=== PATIENT | female | born 1955 | race Caucasian/White ===

== ENCOUNTER 2019-11-28 15:38 | Emergency (ER) | payer MEDICARE, OTHER, SELFPAY ==
[2019-11-28 15:57] VITALS: BP 137/50; PULSE 84; RESP 20; TEMP 36.8; O2SAT 97
--- NOTE | 2019-11-28 16:13 | ED.URI ---
HPI - URI/Sore Throat General Stated Complaint: sinus infection Source: patient and family History of Present Illness HPI Narrative: Patient presents with a 13-day history of sinus pressure and tenderness. Patient denies any fever, no shortness of breath no chest pain. MD elicited complaint: cough, nasal congestion and sinus pain Related Data Home Medications Medication Instructions Recorded Confirmed albuterol sulfate [ProAir HFA] INHALATION 08/16/19 amlodipine 08/16/19 azelastine INTRANASAL 08/16/19 clonazepam 08/16/19 clopidogrel 08/16/19 duloxetine mg PO 08/16/19 duloxetine mg PO 08/16/19 escitalopram oxalate mg 08/16/19 levothyroxine 08/16/19 linaclotide [Linzess] mcg 08/16/19 linaclotide [Linzess] mcg 08/16/19 metformin mg 08/16/19 peg-electrolyte soln [GaviLyte-N] 08/16/19 rifaximin [Xifaxan] mg 08/16/19 rosuvastatin mg 08/16/19 Allergies Allergy/AdvReac Type Severity Reaction Status Date / Time celecoxib Allergy Mild Rash Verified 11/28/19 16:26 codeine Allergy Mild hives Verified 11/28/19 16:26 hydrocodone Allergy Mild hives Verified 11/28/19 16:26 meperidine Allergy Mild swelling Verified 11/28/19 16:26 of throat metronidazole Allergy Mild Nausea and Verified 11/28/19 16:26 Vomiting Penicillins Allergy Mild Hives / Verified 11/28/19 16:26 Red Face pentazocine Allergy Mild Rash Verified 11/28/19 16:26 Quinolones Allergy Mild hives Verified 11/28/19 16:26 Sulfa (Sulfonamide Allergy Mild Hives / Verified 11/28/19 16:26 Antibiotics) Red Face acetaminophen Allergy Unknown Itching Verified 11/28/19 16:26 propoxyphene Allergy Unknown Itching Unverified 08/16/19 14:07 Review of Systems Review of Systems: Narrative: CONSTITUTIONAL: Denies chills, or sweats. Reports fever and generalized body aches EYES: Denies visual changes, redness, or discharge. ENT: Denies otalgia. Reports nasal congestion runny nose and sore throat mild maxillary tenderness and pressure CARDIOVASCULAR: Denies chest pain, palpitations, or edema. RESPIRATORY: Denies dyspnea. Reports occasional cough GASTROINTESTINAL: Denies abdominal pain, nausea, vomiting, or diarrhea. GENITOURINARY: Denies dysuria or hematuria. SKIN: Denies rash or itching. MUSCULOSKELETAL: Denies back pain, joint pain, or myalgia. Reports generalized body aches NEUROLOGIC: Denies headache, numbness, or weakness. PSYCHIATRIC: Denies anxiety or depression. COUNT INCLUDES THE [facility] Past Medical History Medical History Anxiety Asthma CVA (cerebral vascular accident) Depression Diabetes Fibroids Fibromyalgia GERD (gastroesophageal reflux disease) Hypothyroidism Pelvic floor dysfunction Peripheral neuropathy Postmenopausal Restless leg syndrome Sleep apnea TIA (transient ischemic attack) Surgical History Surgical History H/O: hysterectomy History of cholecystectomy Comments At time of signature, agree with nursing past medical, surgical, social and family history. There is no relevant family history pertinent to the presenting complaint Exam Narrative: Exam Narrative: The patient is a well-developed, well-nourished in no acute distress. SKIN: Skin is warm and dry without erythema, swelling or exudate. There is good turgor. No tenting. HEAD: Atraumatic. Normocephalic. No temporal or scalp tenderness. EYES: Moist and bright. Sclera and conjunctivae normal. No discharge. PERRLA. Extraocular motions intact. Gross visual acuity intact. EARS: Pinna is normal shape and contour. Clear external auditory canals. TM pearly cat with good cone of light, no erythema or suppuration. Bilateral cerumen noted no gross hearing deficit. NOSE: pink, moist mucosa with good air movement. Clear rhinorrhea without nasal flaring. Septum midline. Mouth: moist mucous membranes. Mild maxillary pressure and tenderness mild postnasal drainage THROAT; mild erythe
== END 2019-11-28 16:30 | disposition home or self-care (01) ==
PROVIDERS: Emergency Provider Nurse Practitioner Family
DX: J01.00 Acute maxillary sinusitis, unspecified (principal); F41.9 Anxiety disorder, unspecified; J45.909 Unspecified asthma, uncomplicated; M79.7 Fibromyalgia; K21.9 Gastro-esophageal reflux disease without esophagitis; E11.42 Type 2 diabetes mellitus with diabetic polyneuropathy; G25.81 Restless legs syndrome; Z86.73 Personal history of transient ischemic attack (TIA), and cerebral infarction without residual deficits
CPT/HCPCS: 99213; G0463

== ENCOUNTER → 2021-12-29 07:55 | Outpatient (CLI) | payer MEDICARE, OTHER, SELFPAY ==
--- NOTE | ~2021-12-29 | US_ITS ---
US breast RT complete 12/29/2021 08:54 Indication: Probable right breast lump Procedure: High-resolution ultrasound of the right breast Comparison: Outside mammogram dated 09/15/2021 and 05/08/2020 from [place], [place] Findings: Adjacent to the areola there is a complex partially cystic and hyperechoic mass with mixed posterior attenuation measuring 2 x 1.4 cm. There is internal vascularity. No corresponding abnormali ty is seen on recent mammography. Impression: 1: Complex 2 cm periareolar right breast mass which is partially cystic. No corresponding abnormality on recent mammography. Recommendation: Digital diagnostic right mammogram is recommended. BI-RADS CATEGORY 0 - INCOMPLETE STUDY, NEED ADDITIONAL IMAGING EVALUATION. Reviewed, dictated and finalized at location A. Impression: 1: Complex 2 cm periareolar right breast mass which is partially cystic. No cor responding abnormality on recent mammography. Recommendation: Digital diagnostic right mammogram is recommended. BI-RADS CATEGORY 0 - INCOMPLETE STUDY, NEED ADDITIONAL IMAGING EVALUATION.
== END ==
PROVIDERS: PCP Internal Medicine Infectious Disease; Visit Provider Obstetrics & Gynecology
DX: N64.89 Other specified disorders of breast (principal); R92.8 Other abnormal and inconclusive findings on diagnostic imaging of breast
CPT/HCPCS: 76641

== ENCOUNTER → 2022-01-02 11:18 | Outpatient (CLI) | payer MEDICARE, OTHER, SELFPAY ==
--- NOTE | ~2022-01-02 | DEXA_ITS ---
Bone Density Report Name: SANGEETHA BARBA Age: 66 Sex: Female Ethnicity: White Date of : 1955 Indication: postmenopausal; screening for osteoporosis; height loss; inflammatory bowel disease; asthma or emphysema; hysterectomy; Referring Provider: Michael, Ozzie Kirby Study: Bone densitometry was performed. Exam Date: January 02, 2022 Accession number: [id number] Bone Density: Region BMD T-score Z-score Classification AP Spine (L1, L4) 0.917 -1.1 0.9 Osteopenia Femoral Neck (Left) 0.862 0.1 1.8 Normal Total Hip (Left) 0.944 0.0 1.4 Normal Femoral Neck (Right) 0.793 -0.5 1.2 Normal Total Hip (Right) 0.879 -0.5 0.9 Normal Total Hip Mean 0.912 -0.3 1.2 Normal World Health Organization criteria for BMD impression classify patients as: Normal (T-score at or above -1.0), Osteopenia (T-score between -1.0 and -2.5), or Osteoporosis (T-score at or below -2.5). 10-year Fracture Risk(1): Major Osteoporotic Fracture 7.5% Hip Fracture 0.5% Reported Risk Factors: [place] (), Neck BMD=0.793, BMI=31.3 (1) FRAX(R) Version 3.08. Fracture probability calculated for an untreated patient. Fracture probability may be lower if the patient has received treatment. Previous Exams: Region Exam Age BMD T-score BMD Change BMD Change Date g/cm2 vs Baseline vs Previous AP Spine(L1, L4) 01/02/2022 66 0.917 -1.1 -0.101* -0.088* 12/13/2018 63 1.004 -0.3 -0.013 -0.013 07/10/2009 54 1.018 -0.2 Total Hip(Left) 01/02/2022 66 0.944 0.0 -0.073* -0.032* 12/13/2018 63 0.976 0.3 -0.041* -0.041* 07/10/2009 54 1.017 0.6 Total Hip(Right) 01/02/2022 66 0.879 -0.5 -0.116* -0.059* 12/13/2018 63 0.938 0.0 -0.057* -0.057* 07/10/2009 54 0.995 0.4 *Denotes significance at 95% confidence level, LSC for AP Spine = 0.022 g/cm2, LSC for Total Hip = 0.027 g/cm2 Clinical Information Provided by Patient: Has used the following medications: Vitamin D Has the following medical conditions: Asthma or Emphysema, Inflammatory bowel diseases, Hysterectomy Patient maximum height was 64 Menopause Age: 36 No regular weight bearing exercise Does not regularly consume dairy products Drinks caffeinated beverages Onset of menses at age 9 Number of children 0 Missed period for more than 6 months in a row Impression: The patient has low bone
== END ==
PROVIDERS: PCP Internal Medicine Infectious Disease; Visit Provider Internal Medicine Infectious Disease
DX: Z78.0 Asymptomatic menopausal state (principal); M85.88 Other specified disorders of bone density and structure, other site
CPT/HCPCS: 77080

== ENCOUNTER 2025-04-23 13:04 | Outpatient (CLI) | payer MEDICARE, SELFPAY ==
--- NOTE | ~2025-04-23 | DEXA_ITS ---
Bone Density Report Name: SANGEETHA BARBA Age: 69 Sex: Female Ethnicity: White Date of : 1955 Indication: hyperparathyroidism; parental hip fracture; height loss; inflammatory bowel disease; cancer; hysterectomy; Referring Provider: VICKY, LYNN Kirby Study: Bone densitometry was performed. Exam Date: April 23, 2025 Accession number: [id number] Bone Density: Region BMD T-score Z-score Classification AP Spine(L1-L4) 1.031 -0.1 2.1 Normal Femoral Neck (Left) 0.790 -0.5 1.4 Normal Total Hip (Left) 0.948 0.0 1.7 Normal Femoral Neck (Right) 0.757 -0.8 1.1 Normal Total Hip (Right) 0.937 0.0 1.6 Normal Total Hip Mean 0.942 0.0 1.7 Normal World Health Organization criteria for BMD impression classify patients as: Normal (T-score at or above -1.0), Osteopenia (T-score between -1.0 and -2.5), or Osteoporosis (T-score at or below -2.5). 10-year Fracture Risk: FRAX not reported because: All T-scores for Spine Total, Hip Total, Femoral Neck at or above -1.0 Previous Exams: Region Exam Age BMD T-score BMD Change BMD Change Date g/cm2 vs Baseline vs Previous Total Hip(Left) 04/23/2025 69 0.948 0.0 0.004 (0.4%)# 0.004 (0.4%)# 01/02/2022 66 0.944 0.0 Total Hip(Right) 04/23/2025 69 0.937 0.0 0.058 (6.6%)# 0.058 (6.6%)# 01/02/2022 66 0.879 -0.5 *Denotes significance at 95% confidence level, LSC for Total Hip = 0.027 g/cm2 # Denotes dissimilar scan types or analysis methods Clinical Information Provided by Patient: Parent has had a hip fracture Has used the following medications: Vitamin D, Calcium Has the following medical conditions: Cancer, Inflammatory bowel diseases, Hyperparathyroidism, Hysterectomy Patient maximum height was 64 Menopause Age: 36 No regular weight bearing exercise Onset of menses at age 9 Number of children 0 Impression: The patient has normal bone mass. The patient has risk factors, including: parental hip fracture. No significant bone loss was observed. Discussion: BONE DENSITY IS ABOVE THE MINIMUM DESIRABLE LEVEL AT ALL SKELETAL SITES TESTED. This patient?s bone mineral density is above the minimum desirable level (T-score -1.0 or better) at all sites measured. The patient should follow a healthful lifestyle (good nutrition with adequate calcium and vitamin D, and appropriate weight-bearing exercise). Follow-Up: Consider repeating this study in 5 years or sooner if there is some new clinical indication. Reported by: JUANITA on 04/23/2025 1:52:00 PM. Reviewed, dictated and finalized at location A.
--- OUTSIDE RECORDS SUMMARY | 2025-04-23 13:08 | XMS_ITS | Encounter Summary ---
Author Organization [facility] Address [address] [place] [address] Phone Care Team Providers Care Meter And Service Line Inspector Name Role Phone Ozzie Rodriguez MD Primary Care Provider Stefan Marroquin MD Unavailable Mateus Tran MD Unavailable Bruce Garcia MD Unavailable Jimenez Shaw MD Unavailable Иван Singh MD Unavailable Myriam Abdullahi NP Unavailable [phone] Dakota Marroquin MD Unavailable Daniel Rubin MD Unavailable Loni RODRIGUES MD, Carlos M. Unavailable Jay Meadows MD Unavailable Larry Block DPM Unavailable Yaw Menchaca MD Unavailable + Ata Flores MD Unavailable [phone] Rae Pérez OD Unavailable Logan Mitchell MD Unavailable Frank Rodriguez BALANCE CLERK Unavailable Rebecca Watkins MD Unavailable [phone] Ceci Chanel [facility] Unavailable [phone] Madelyn Church MD Unavailable [phone] Josi Zamora OD Unavailable [phone] Madelyn Church MD Unavailable [phone] Encounter Details Date Type Department Care Team (Late st Contact Info) Description 06/15/2019 Orders Only [facility] Scanning, Provider Social History Tobacco Use Types Packs/Day Years Used Date Smoking Tobacco: Never Smokeless Tobacco: Never Alcohol Use Standard Drinks/Week Comments Yes 0 (1 standard drink = 0.6 oz pur e alcohol) Social use PHQ-2 Answer Date Recorded PHQ-2 Score 2 05/17/2019 Comments Unknown Sex and Gender Information Value Date Recorded Sex Assigned at Not on file Legal Sex Female 8:34 AM [employer] Gender Identity Female 12/01/2021 9:28 PM [employer]IST Sexual Orientation Straight 10/31/2020 6: 30 PM [employer]IST documented as of this encounter Plan of Treatment Not on file documented as of this encounter Procedures Procedure Name Priority Date/Time Associated Diagnosis Comments SCAN - RADIOLOGY/IMAGING 06/15/2019 documented in this encounter Results * SCAN - RADIOLOGY/IMAGING (06/15/2019) Anatomical Region Laterality Modality Other us Provider Scanning Final Result documented in this encounter Visit Diagnoses Not on filedocumented in this encounter Additional Health Concerns Infection Onset Date Last Indicated Resolved Time C. difficile suspected 12/01/2024 12/01/202412/02 3:05 AM [employer] SPECIALIST documented as of this encounter Care Teams Meter And Service Line Inspector Relationship Specialty Start Date End Date Ozzie Rodriguez MD [address] [place] [address] PCP - General Infectious Diseases 05/02/18 tSefan Marroquin MD [address] [place] [address] Consulting Physician Psychiatry 09/05/18 10/06/22 Mateus Tran MD [address] [facility] [address] [place] [address] Consulting Physician Neurology 10/26/18 Bruce Garcia MD [address] [address] Consulting Physician Gastroenterology 12/05/18 Jimenez Shaw MD [address] [place] [address] Consulting Physician Ophthalmology 12/06/18 Иван Singh MD [address] [place] [address] Consulting Physician Urology 03/07/19 Myriam Abdullahi NP [address] [place] [address] Nurse Practitioner Dermatology 04/08/19 Dakota Marroquin MD [address] [place] [address] Consulting Physician Gastroenterology 05/21/19 Daniel Rubin MD [address] [facility] [address] [facility] [address], [address] [place], [place] [id number] Consulting Physician Cardiology 09/11/19 [place] [address] [facility] [address] [place] [address] Consulting Physician Neurology 06/20/20 Jay Meadows MD [address] [facility] [address] [place] [address] Consulting Physician Orthopedic Surgery 07/26/20 Larry Block DPM [address] [facility] [address] [place] [address] Consulting Physician Orthopedic Surgery 12/02/20 [place] [address] [facility] [address] [place] [address] Consulting Physician Orthopedic Surgery 12/19/20 Ata Flores MD [address] [place] [address] Referring Physician Endocrinology Diabetes & Metabolism 08/25/21 Rae Pérez OD [address] [place] [address] Consulting Physician Optometry 08/18/21 Logan Mitchell MD [address] [facility] [place] [address] Consulting Physician Allergy and Immunology 05/20/22 Frank Rodriguez, MARIBEL [address] [place] [address] Nurse Practitioner Psychiatry 09/17/22 Rebecca Watkins MD [id number] [place] [address] Consulting Physician Colon and Rectal Surgery 01/20/23 Ceci Chanel, [facility] [address] [place] [address] Pharmacist Pharmacy 08/07/24 08/07/24 Madelyn Church MD [address] [facility] [address] [place] [address] Referring Physician Nephrology 05/02/24 Josi Zamora, KYAW [address] [place] [address] Consulting Physician Optometry 10/16/24 Madelyn Church MD [address] [facility] [address] [place] [address] Referring Physician Nephrology 12/26/24 04/15/25 documented as of this encounter
--- OUTSIDE RECORDS SUMMARY | 2025-04-23 13:08 | XMS_ITS | Patient Health Record ---
Author Organization [facility] Address [address] [address] Care Team Providers Care Autocad Operator Name Role Phone Ozzie Rodriguez Primary Care Provider Ata Hardin Unavailable [phone] ALLERGIES Allergen (clinical drug ingredient) Drug/Non Drug Allergy documented on EMR Reaction Allergy Type Onset Date Status Vicodin Unknown Drug Allergy Active Talwin Unknown Drug Allergy Active metronidazole Flagyl Unknown Drug Allergy Act danis meperidine Demerol Unknown Drug Allergy Active ciprofloxacin Cipro Unknown Drug Allergy Act danis Darvocet N-100 Unknown Drug Allergy Ac tive Beta Blockers Unknown Drug Allergy Act danis Sulfa (Allergies Only) Unknown Drug Allergy Active Codeine (Allergies Only) Unknown Drug Allergy Active Pennicillin (For Allergy Selection Only) Unknown Drug Allergy Active RESULTS Component Value Reference Range Notes Hemoglobin A1c (In-House) Reviewed date:05/03/2024 07:06:42 PM Interpretation: Performing Lab: Notes/Report: Hemoglobin A1c 5.7% 4.0 - 6.0 % Ferritin, Serum Reviewed date:04/27/2024 01:25:57 PM Interpretation: Performing Lab:[facility], [address] [facility], [place], Phone - [phone], Director - Barrie Notes/Report: Ferritin 156 15-150 ng/mL CBC With Differential/Platel et Reviewed date:04/27/2024 01:26:12 PM Interpretation: Performing Lab:[facility] [place], [address] [facility], [place], Phone - [phone], Director - Barrie Notes/Report: WBC 6.5 3.4-10.8 x10E3/uL RBC 4.31 3.77-5.28 x10E6/uL Hemoglobin 14.0 11.1-15.9 g/dL Hematocrit 43.2 34.0-46.6 % MCV 100 79-97 fL MCH 32.5 26.6-33.0 pg MCHC 32.4 31.5-35.7 g/dL RDW 12.4 11.7-15.4 % Platelets 259 150-450 x10E3/uL Neutrophils 61 Not Estab. % Lymphs 30 Not Estab. % Monocytes 6 Not Estab. % Eos 2 Not Estab. % Basos 1 Not Estab. % Immature Cells Neutrophils (Absolute) 3.9 1.4-7.0 x10E3/uL Lymphs (Absolute) 2.0 0.7-3.1 x10E3/uL Monocytes(Absolute) 0.4 0.1-0.9 x10E3/uL Eos (Absolute) 0.1 0.0-0.4 x10E3/uL Baso (Absolute) 0.1 0.0-0.2 x10E3/uL Immature Granulocytes 0 Not Estab. % Immature Grans (Abs) 0.0 0.0-0.1 x10E3/uL NRBC Hematology Comments: Microalb/Creat Ratio, Randm Ur Reviewed date:04/27/2024 11:19:38 AM Interpretation: Performing Lab:[facility], [address] [facility], Phone - [phone], Director - Barrie Notes/Report: Creatinine, Urine 22.6 Not Estab. mg/dL Albumin, Urine <3.0 Not Estab. ug/mL Alb/Creat Ratio <13 0-29 mg/g creat Normal: 0 - 29 Moderately increased: 30 - 300 Severely increased: >300 Vitamin D, 25-Hydroxy (In-Ho use) Reviewed date:05/03/2024 07:08:09 PM Interpretation: Performing Lab: Notes/Report: Vitamin D, 25-Hydroxy (in house) 112.0 30 - 100 ng/mL Vitamin B12 (In-House) Reviewed date:05/08/2024 12:13:38 PM Interpretation: Performing Lab: Notes/Report: Vitamin B12 (In-House) >1500 180 - 914 pg/mL Thyroid Profile (In-House) ( TSH3+TT3+FT4) Reviewed date:05/03/2024 07:07:24 PM Interpretation: Performing Lab: Notes/Report: TSH3 5.83 0.45 - 5.33 uIU/mL TT3 0.65 0.62 - 1.62 ng/mL FT4 0.87 0.62 - 1.58 ng/dL Hemoglobin A1c (In-House) Reviewed date:08/21/2024 07:14:25 PM Interpretation: Performing Lab: Notes/Report: Hemoglobin A1c 5.4% 4.0 - 6.0 % Hemoglobin A1c (In-House) Reviewed date:12/18/2024 04:43:31 PM Interpretation: Performing Lab: Notes/Report: Hemoglobin A1c 5.3% 4.0 - 6.0 % Vitamin D, 25-Hydroxy (In-Ho use) Reviewed date:12/18/2024 05:09:30 PM Interpretation: Performing Lab: Notes/Report: Vitamin D, 25-Hydroxy (in house) 85.6 30 - 100 ng/mL Vitamin B12 (In-House) Reviewed date:12/18/2024 04:42:46 PM Interpretation: Performing Lab: Notes/Report: Vitamin B12 (In-House) >1500 180 - 914 pg/mL Thyroid Profile (In-House) ( TSH3+TT3+FT4) Reviewed date:12/20/2024 01:07:54 PM Interpretation: Performing Lab: Notes/Report: TSH3 6.37 0.45 - 5.33 uIU/mL TT3 2.38 0.62 - 1.62 ng/mL FT4 2.90 0.62 - 1.58 ng/dL TSH, 3RD GENERATION Reviewed date:01/05/2025 10:20:35 AM Interpretation: Performing Lab:[facility], [address] [place], [address] Rhys Hensley MD Notes/Report: FASTING:YES FASTING: YES TSH 21.68 0.40-4.50 mIU/L T4, FREE Reviewed date:01/04/2025 05:00:06 PM Interpretation: Performing Lab:[facility], [address] [place], [address] Rhys Hensley MD Notes/Report: FASTING:YES FASTING: YES T4, FREE 1.0 0.8-1.8 ng/dL T3, TOTAL Reviewed date:01/04/2025 04:59:31 PM Interpretation: Performing Lab:[facility], [address] [place], [address] Rhys Hensley MD Notes/Report: FASTING:YES FASTING: YES T3, TOTAL 74 76-181 ng/dL TSH, 3RD GENERATION Reviewed date:03/01/2025 04:24:00 PM Interpretation: Performing Lab:[facility], [facility] [place], [address], [place], [address] Rhys Hensley MD Notes/Report: FASTING:NO FASTING: NO TSH 3.66 0.40-4.50 mIU/L T3, TOTAL Reviewed date:03/01/2025 04:24:18 PM Interpretation: Performing Lab:[facility], [address], [place], [address] Rhys Hensley MD Notes/Report: FASTING:NO FASTING: NO T3, TOTAL 66 76-181 ng/dL T4, FREE Reviewed date:03/01/2025 04:24:09 PM Interpretation: Performing Lab:[facility], [address] [address], [place], [address] Rhys Hensley MD Notes/Report: FASTING:NO FASTING: NO T4, FREE 1.4 0.8-1.8 ng/dL REASON FOR REFERRAL No Information MEDICATIONS Medication SIG (Take, Route, Frequency, Duration) Notes Start Date End Date Status Linzess 290 MCG 1 Tablet Orally Once a day Active tiZANidine HCl 4 MG 1 tablet at bedtime as needed Orally Once a day as needed Active Brimonidine Tartrate 0.2 % 1 drop into a ffected eye Ophthalmic Two Times a Day Activ e Midodrine HCl 2.5 MG 1 tablet Orally Twi ce a day Active Plavix 75 MG 1 tablet Orally Once a day Active Levothyroxine Sodium 100 MCG 1 tablet in the morning on an empty stomach Orally Once a day for 60 days Active Iron 240 (27 Fe) MG 1 tablet with water or juice between meals Orally Once a day Active Vitamin B-12 1000 MCG 1 tablet Orally Once a day 0 04/24/2021 Active Vitamin D3 2000 UNIT 1 capsule Orally On ce a Day Active Ozempic (2 MG/DOSE) 8 MG/3ML INJECT SUBCUTANEOUSLY 2 MG EVERY WEEK for 84 Active Wellbutrin XL 300 MG 1 tablet in the mor genny Orally Once a day Active Vilazodone HCl 20 MG 1 tablet with food Orally Once a day Active LORazepam 0.5 MG 1 tablet at bedtime as needed Orally Once a day Active PROBLEMS Problem Type ICD Code Onset Dates Problem Status W/U Status Risk SNOMED Code Notes Problem Hypothyroidism (E03.9) Active confirmed Hypothyroidism (81698359) Problem Depression (F32.9) Active confirmed Depression (325473153) Problem Peripheral neuropathy (G62.9) Active confirmed Peripheral neuropathy (355174201) Problem Abnormal thyroid function test (R94.6) Active confirmed Thyroid functio n tests abnormal (636221410) Problem Goiter (E04.9) Active confirmed Goiter (4132245) Problem Hair loss (L65.9) Active confirmed Alop ecia (23578171) Problem Hyperlipidemia, unspecified (E78.5) Active confirmed Hyperlipidemia (05322686) Problem Vitamin D deficiency, unspecified (E55.9) Active confirmed Vitamin D deficiency (42113475) Problem Type 2 diabetes mellitus with hyperglycemia (E11.65) Active confirmed Hyperglycemia d ue to type 2 diabetes mellitus (065514557128823) Problem Orthostatic hypotension (I95.1) Active confirmed Orthostatic hypotension (20743957) Problem Deficiency of other specified B group vitamins (E53.8) Active confirmed Vitamin B deficiency (76852021) Problem Essential (primary) hypertension (I10) Active confirmed Essential hypertension (80886205) VITAL SIGNS Heart Rate 66 /min 12/14/2024 Blood pressure diastolic 62 mm Hg 12/14/2024 Height 64 in 12/14/2024 Blood pressure systolic 114 mm Hg 12/14/2024 Weight 172.0 lbs 12/14/2024 BMI 29.52 kg/m2 12/14/2024 Encounters Encounter Location Date Provider Diagnosis [facility] [address] [place] [phone] 04/26/2024 Ata Flores Type 2 diabetes mellitus with hyperglycemia E11.65 ; Essential (primary) hypertension I10 ; Hyperlipidemia, unspecified E78.5 ; Hypothyroidism E03.9 ; Vitamin D deficiency, unspecified E55.9 ; Deficiency of other specified B group vitamins E53.8 ; Peripheral neuropathy G62.9 ; Goiter E04.9 ; Depression F32.9 and Hair loss L65.9 [facility] [address] [place] [phone] 08/17/2024 Ata Flores Type 2 diabetes mellitus with hyperglycemia E11.65 ; Essential (primary) hypertension I10 ; Hyperlipidemia, unspecified E78.5 ; Hypothyroidism E03.9 ; Vitamin D deficiency, unspecified E55.9 ; Deficiency of other specified B group vitamins E53.8 ; Peripheral neuropathy G62.9 ; Goiter E04.9 ; Depression F32.9 and Hair loss L65.9 [facility] [address] [place] [address] 12/14/2024 Ata Flores Type 2 diabetes mellitus with hyperglycemia E11.65 ; Essential (primary) hypertension I10 ; Hyperlipidemia, unspecified E78.5 ; Hypothyroidism E03.9 ; Vitamin D deficiency, unspecified E55.9 ; Deficiency of other specified B group vitamins E53.8 ; Peripheral neuropathy G62.9 ; Goiter E04.9 ; Depression F32.9 ; Hair loss L65.9 and Orthostatic hypotension I95.1 [facility] [address] [place] [phone] 04/17/2025 Ata Flores Type 2 diabetes mellitus with hyperglycemia E11.65 ; Essential (primary) hypertension I10 ; Hyperlipidemia, unspecified E78.5 ; Hypothyroidism E03.9 ; Vitamin D deficiency, unspecified E55.9 ; Deficiency of other specified B group vitamins E53.8 ; Peripheral neuropathy G62.9 ; Goiter E04.9 ; Depression F32.9 ; Hair loss L65.9 and Orthostatic hypotension I95.1 [facility] [address] [place] [phone] 12/20/2024 Ata Flores Abnormal thyroid function test R94.6 [facility] [address] [place] [phone] 01/05/2025 Ata Oinyaine Hypothyroidism E03.9 and Abnormal thyroid function test R94.6 [facility] [address] [address] 12/20/2024 Ata Oiknine Abnormal thyroid function test R94.6 [facility] [address] [address] 01/05/2025 Ata Kirtine ASSESSMENTS Encounter Date Diagnosis Assessment Notes Treatment Notes Treatment Clinical Notes Section Notes 04/26/2024 Type 2 diabetes mellitus with hyperglycemia (ICD-10 - E11.65) 04/26/2024 Essential (primary) hypertension (ICD-10 - I10) 08/17/2024 Type 2 diabetes mellitus with hyperglycemia (ICD-10 - E11.65) Diabetes is a complex long-term condition and will require continued focused treatment. 08/17/2024 Essential (primary) hypertension (ICD-10 - I10) 12/14/2024 Type 2 diabetes mellitus with hyperglycemia (ICD-10 - E11.65) 12/14/2024 Essential (primary) hypertension (ICD-10 - I10) 04/17/2025 Type 2 diabetes mellitus with hyperglycemia (ICD-10 - E11.65) 01/05/2025 Hypothyroidism (ICD-10 - E03.9) 04/26/2024 Hyperlipidemia, unspecified (ICD-10 - E78.5) 08/17/2024 Hyperlipidemia, unspecified (ICD-10 - E78.5) 12/14/2024 Hyperlipidemia, unspecified (ICD-10 - E78.5) 04/17/2025 Essential (primary) hypertension (ICD-10 - I10) 12/20/2024 Abnormal thyroid function test (ICD-10 - R94.6) 12/20/2024 Abnormal thyroid function test (ICD-10 - R94.6) 04/26/2024 Hypothyroidism (ICD-10 - E03.9) 08/17/2024 Hypothyroidism (ICD-10 - E03.9) 12/14/2024 Hypothyroidism (ICD-10 - E03.9) 04/17/2025 Hyperlipidemia, unspecified (ICD-10 - E78.5) 01/05/2025 Abnormal thyroid function test (ICD-10 - R94.6) 04/26/2024 Vitamin D deficiency, unspecified (ICD-10 - E55.9) 08/17/2024 Vitamin D deficiency, unspecified (ICD-10 - E55.9) 12/14/2024 Vitamin D deficiency, unspecified (ICD-10 - E55.9) 04/17/2025 Hypothyroidism (ICD-10 - E03.9) 04/26/2024 Deficiency of other specified B group vitamins (ICD-10 - E53.8) 08/17/2024 Deficiency of other specified B group vitamins (ICD-10 - E53.8) 12/14/2024 Deficiency of other specified B group vitamins (ICD-10 - E53.8) 04/17/2025 Vitamin D deficiency, unspecified (ICD-10 - E55.9) 04/26/2024 Peripheral neuropathy (ICD-10 - G62.9) 08/17/2024 Peripheral neuropathy (ICD-10 - G62.9) 12/14/2024 Peripheral neuropathy (ICD-10 - G62.9) 04/17/2025 Deficiency of other specified B group vitamins (ICD-10 - E53.8) 04/26/2024 Goiter (ICD-10 - E04.9) 08/17/2024 Goiter (ICD-10 - E04.9) 12/14/2024 Goiter (ICD-10 - E04.9) 04/17/2025 Peripheral neuropathy (ICD-10 - G62.9) 04/26/2024 Depression (ICD-10 - F32.9) 08/17/2024 Depression (ICD-10 - F32.9) 12/14/2024 Depression (ICD-10 - F32.9) 04/17/2025 Goiter (ICD-10 - E04.9) 04/26/2024 Hair loss (ICD-10 - L65.9) 08/17/2024 Hair loss (ICD-10 - L65.9) 12/14/2024 Hair loss (ICD-10 - L65.9) 04/17/2025 Depression (ICD-10 - F32.9) 12/14/2024 Orthostatic hypotension (ICD-10 - I95.1) 04/17/2025 Hair loss (ICD-10 - L65.9) 04/17/2025 Orthostatic hypotension (ICD-10 - I95.1) 04/26/[address] Ata hidalgo dictates using App.io Speaking software. Citrus Fruit Colorer variances may occur. Since our last visit the patient has felt generally well although she does complain of persistent fatigue. She has noted worsening hair loss since our last visit. We reviewed all of her medications and her prior lab work. Her mood appears to be stable. I stressed the importance of a low glycemic diet along with a daily aerobic physical activity. I will get a battery of test today. We agreed to start low-dose minoxidil orally for hair loss. I will see the patient again in 3 months. She will continue following up with all of her providers as indicated. We have set a goal A1c around 7% or less hopefully without hypoglycemia 08/17/[address] Ata hidalgo dictates using App.io Speaking software. Citrus Fruit Colorer variances may occur. Since our last visit the patient has felt generally well. She is now off of farxiga at the direction of her drive in teller. She has chronic kidney disease. Her blood pressure remained stable. She remains active. Her mood appears to be stable on the current antidepressants. She remains on vitamin D and vitamin B-12 supplementation. She has hypothyroidism which is treated. She is on GLP-1 RA therapy for the treatment of type 2 diabetes. I stressed the importance of a low glycemic diet along with a daily aerobic physical activity. She remains on low-dose minoxidil for hair loss which has been effective. We will see the patient again in 4 months for follow-up or sooner if needed. She will continue following up with her PCP, home health caregiver and drive in teller as indicated 12/14/[address] Ata hidalgo dictates using App.io Speaking software. Citrus Fruit Colorer variances may occur. Since our last visit the patient has followed up with her home health caregiver and her drive in teller. She was diagnosed with orthostatic hypotension and is now on Midrin. She is off of minoxidil. We reviewed her medications and all of her prior lab work. Renal function tests have improved. She is off of farxiga . She remains on GLP-1 RA therapy. I will repeat a hemoglobin A1c today along with thyroid function tests. She will continue all of her medications. She will remain on vitamin D and B12 supplementation. Her mood appears to be stable. I will repeat a battery of tests today. She will continue following up with other providers as indicated and I will see her again in 4 months for follow-up or sooner if needed 04/17/[address] Ata hidalgo dictates using Sequence Design software. Citrus Fruit Colorer variances may occur. PLAN OF TREATMENT Next Appt Details Provider Name:Ata Flores, 04/30/2025 10:30:00 AM, [address], [address], Insurance Providers Payer Name Payer Address Payer Phone Subscriber Number Group Number Insured Name Patient Relationship to Insured Coverage Start Date Coverage End Date Medicare Complete ([facility]) [address] [address] [place] [address] [id number] Natanael Mily Self - patient is the insured Medicare [address] [address] [place] [address] [id number] Mily Santoyo Self - patient is the insured MEDICAL (GENERAL) HISTORY Medical History History ICD Code hypothyroidism 1985 glaucoma type II diabetes 10/2011 Arthritis gastroesophageal reflux disease (GERD) sleep apnea COLONOSCOPY 01/2013 Laryngopharyngeal Reflux Surgical History Surgery Date(Month/Year) Tonsilectomy 1958 Pelvic Laparoscopy and Exploratory 1975 & 1977 Breast Reduction 1980 Gallbladder Removed 1982 Pelvic Laparoscopy 1986 Orthoscopic Jaw Surgery 1989 Hysterectomy & Melanoma Removed 1990 Salpingo-oophorectomy 1999 2 Lymph Nodes Revomed (Neck) 2003 Orthoscopic Righ Knee Surgery 2004 R Eye Cataract Surgery 2006 Blader Repair Surgery 2006 L Eye Cataract Surgery 2008 Orthoscopic Left Knee Surgery 2009 R Carpal tunnel Surgery 2009 Abdominoplasty 2011 Angiogram 2012 Micro R Knee 2015 Nerve Stimulation Device Implant 2018 Removed 2019 Hospitalization History Reason Date(Month/Year) Edema 03/2014
--- OUTSIDE RECORDS SUMMARY | 2025-04-23 13:08 | XMS_ITS | Clinical Summary ---
Author Organization [facility] Address [address], [address] [address] Phone Care Team Providers Care Sap Bpc Architect Name Role Phone Ozzie Rodriguez MD Primary Care Provider [phone] Allergies Active Allergy Reactions Criticality Noted Date Comments Chocolate Other (see Comments) 01/09/2019 Ciprofloxacin Hives,Other (see Comments) High 01/06/2019 Tongue swelling Codeine Anaphylaxis High 01/06/2019 Propoxyphene Hives Medium 01/06/2019 Meperidine Hcl Anaphylaxis High 01/06/2019 Metronidazole Rash,Hallucinations High 01/06/2019 Other Shortness of Breath 01/09/2019 BETA BLOCKERS Asthmatic attack CORN COCKROACHES GRASSES, TREES, MOLDS, WEEDS, FEATHERS PINE Penicillins Unknown High 01/06/2019 Sulfa Antibiotics Rash,Hallucinations High 9 Pentazocine Lactate Hives Medium 01/06/2019 Hydrocodone-Acetaminoph en Hives Medium 01/06/2019 Medications DULoxetine (CYMBALTA) [address] Particles TAKE ONE CAPSULE IN THE MORNING 0 9 Active escitalopram (LEXAPRO) 20 MG Tablet TAKE ONE TAB BY MOUTH IN THE MORNING 2 9 Active levothyroxine (SYNTHROID) 125 MCG Tablet TAKE 1 TABLET BY MOUTH FILTERING MACHINE TENDER HELPER BEFORE BREAKFAST 3 9 Active Meloxicam 15 MG Tablet Take 1 Tab by mouth daily. 2 9 Active traMADol (ULTRAM) 50 MG Tablet TAKE 1 TABLET 3 TIMES A DAY NEEDED 0 9 Active venlafaxine (EFFEXOR-XR) 150 MG CAPSULE SR 24 HR TAKE ONE CAPSULE BY MOUTH IN THE MORNING 0 9 Active clopidogrel (PLAVIX) 75 MG Tablet Take 75 mg by mouth daily. Active esomeprazole (NEXIUM) 40 MG Pack Take 40 mg by mouth 2 times daily. Active metFORMIN (GLUCOPHAGE) 1000 MG Tablet Take 1,000 mg by mouth 2 times daily (with meals). Active Iron-Vitamin C (VITRON-C PO) Take 1 Tab by mouth daily. Active Multiple Vitamins-Minera ls (OCUVITE-LUTEIN PO) Take 1 Tab by mouth daily. Active Cholecalciferol (VITAMIN D-3 PO) Take 1 Tab by mouth daily. Active rifAXIMin (XIFAXAN) 550 MG Tablet Take 1 Tab by mouth 3 times daily. 30 Tab 9 Active brimonidine (ALPHAGAN P) 0.15 % Solution Place 1 Drop in affected eye(s) 3 times daily. Active Bimatoprost (LUMIGAN) 0.01 % Solution Place 1 Drop in affected eye(s) nightly. Active FIBER PO Take by mouth. Activ e Linaclotide (LINZESS PO) Take by mouth. Ac tive nitazoxanide (ALINIA) 500 MG Tablet Take 1 Tab by mouth every 12 hours. 14 Tab 9 Active Active Problems Problem Noted Date Diagnosed Date Major depressive disorder, r ecurrent episode, moderate with anxious distress 03/15/2019 Prolonged posttraumatic stress disorder 03/15/20 19 Family History Medical History Relation Name Comments Alcohol Abuse Brother 1 Crohn's Disease Brother 1 Lung Cancer Brother 1 Other-comment Brother 1 CROHNS Stroke Brother 1 No Known Problems Brother 2 Diabetes Father Heart Disease Father Alcohol Abuse Mother Diabetes Mother Heart Disease Mother Stroke Mother MULTIPLE Cancer Sister 1 uterine, Other-comment Sister 1 GRAVES, FIBROM YALGIA Cancer Sister 2 breast Anemia Sister 3 Crohn's Disease Sister 3 Multiple Sclerosis Sister 4 Other-comment Sister 4 IBS Stroke Sister 5 Heart Disease Sister 6 Stroke Sister 6 Relation Name Status Comments Brother 1 Brother 2 Alive Father Mother Sister 1 Alive Sister 2 Alive Sister 3 Sister 4 Alive Sister 5 Alive Sister 6 Alive Social History Tobacco Use Types Packs/Day Years Used Date Smoking Tobacco: Never Smokeless Tobacco: Never Alcohol Use Standard Drinks/Week Comments Yes 0 (1 standard drink = 0.6 oz pure alcohol) might have 3 glasses of wine monthly PHQ-2 Answer Date Recorded PHQ-2 Score 0 05/30/2019 Sexually Active Control Partners Comments Not Currently Male Comments Unknown Sex and Gender Information Value Date Recorded Sex Assigned at Not on file Legal Sex Female 10:46 AM CDT Gender Identity Not on file Sexual Orientation Not on file Last Filed Vital Signs Vital Sign Reading Time Taken Comments Blood Pressure 143/75 01/09/2019 12:20 PM CDT Pulse 82 01/09/2019 10:57 AM CDT Temperature 36 C (96.8 F) 01/09/2019 12:20 PM CDT Respiratory Rate 17 01/09/2019 12:20 PM CDT Oxygen Saturation 100% 01/09/2019 12:20 PM CDT Inhaled Oxygen Concentration - - Weight 81.6 kg (180 lb) 01/06/2019 11:00 AM CDT Height 162.6 cm (5' 4) 01/06/2019 11:00 AM CDT Body Mass Index 30.9 01/06/2019 11:00 AM CDT Plan of Treatment Health Maintenance Due Date Last Done Comments Hepatitis C Virus (HCV) Screening 1955 TdaP Immunization 1955 Cologuard 1998 Zoster Immunization (2 of 2) 04/19/2019 02/22/2019 Pneumococcal Immunization (5 0+ years) (2 of 2 - PPSV23) 06/27/2019 06/27/2018 Immunochemical Fecal Occult Blood 12/08/2019 12/07/2018 SARS-COV-2 Immunization ( - season) 2024 06/26/2021, 12/12/2020, 11/19/2020 Influenza Immunization (#1) 2025 06/27/2018 Respiratory Syncytial Virus (RSV) Immunization (Adult) (1 - 1-dose 75+ series) 2028 Colonoscopy 08/14/2029 08/14/2019, 01/09/2019 Colorectal Cancer Screening 08/14/2029 Pneumococcal Immunization Combined Discontinued 06/27/2018 Hepatitis B Immunization Aged Out No longer eligible based on patient's age to complete this topic Human Papillomavirus (HPV) Immunization Aged Out No longer eligible based on patient's age to complete this topic Meningococcal Immunization (ACWY) Aged Out No longer eligible based on patient's age to complete this topic Rotavirus Immunization Aged Out No lo nger eligible based on patient's age to complete this topic Procedures Procedure Name Priority Date/Time Associated Diagnosis Comments STOOL, OCCULT BLOOD IMMUNOAS SAY (IFOB) Routine 12/07/2018 from Last 3 Months or Most Recently Relevant to Health Maintenance Results * STOOL, OCCULT BLOOD IMMUNOASSAY (IFOB) (12/07/2018) Specimen of unknown material (specimen) STOOL SPECIMEN / Unknown us Not On File Provider BODY FLUIDS & STOOLS ORDERA BLES Final Result from Last 3 Months or Most Recently Relevant to Health Maintenance Insurance [employer] GENERIC MEDICARE Care Teams Sap Bpc Architect Relationship Specialty Start Date End Date Ozzie Rodriguez MD [address], [address] [place] [address] PCP - General Infectious Disease 01/06/19
--- OUTSIDE RECORDS SUMMARY | 2025-04-23 13:09 | XMS_ITS | Encounter Summary ---
Author Organization [facility] Address [address] [place] [address] Phone Care Team Providers Care Waste Hand Name Role Phone Ozzie Rodriguez MD Primary Care Provider Stefan Marroquin MD Unavailable [phone] Mateus Tran MD Unavailable Bruce Garcia MD Unavailable Jimenez Shaw MD Unavailable [phone] Иван Singh MD Unavailable Myriam Abdullahi NP Unavailable [phone] Dakota Marroquin MD Unavailable Daniel Rubin MD Unavailable Loni RODRIGUES MD, Carlos M. Unavailable [phone] Jay Meadows MD Unavailable Larry Block DPM Unavailable Yaw Menchaca MD Unavailable + Ata Flores MD Unavailable [phone] Rae Pérez OD Unavailable Logan Mitchell MD Unavailable [phone] Frank Rodriguez SERVICE LOSS CONTROL CONSULTANT Unavailable Rebecca Watkins MD Unavailable [phone] Ceci Chanel [facility] Unavailable Madelyn Church MD Unavailable Josi Zamora OD Unavailable [phone] Madelyn Church MD Unavailable [phone] Encounter Details Date Type Department Care Team (Late st Contact Info) Description 01/09/2019 Orders Only [facility] Scanning, Provider Social History Tobacco Use Types Packs/Day Years Used Date Smoking Tobacco: Never Smokeless Tobacco: Never Alcohol Use Standard Drinks/Week Comments Yes 0 (1 standard drink = 0.6 oz pur e alcohol) Social use Comments Unknown Sex and Gender Information Value Date Recorded Sex Assigned at Not on file Legal Sex Female 8:34 AM EQUAL OPPORTUNITY SPECIALIST Gender Identity Female 12/01/2021 9:28 PM EQUAL OPPORTUNITY SPECIALIST Sexual Orientation Straight 10/31/2020 6: 30 PM EQUAL OPPORTUNITY SPECIALIST documented as of this encounter Plan of Treatment Not on file documented as of this encounter Procedures Procedure Name Priority Date/Time Associated Diagnosis Comments SCAN - PATHOLOGY 01/09/2019 documented in this encounter Results * SCAN - PATHOLOGY (01/09/2019) us Provider Scanning Edited Result - Final documented in this encounter Visit Diagnoses Not on filedocumented in this encounter Additional Health Concerns Infection Onset Date Last Indicated Resolved Time C. difficile suspected 12/01/2024 12/01/202412/02 3:05 AM EQUAL OPPORTUNITY SPECIALIST documented as of this encounter Care Teams Waste Hand Relationship Specialty Start Date End Date Ozzie Rodriguez MD [address] [place], [place] [address] [address] PCP - General Infectious Diseases 05/02/18 Stefan Marroquin MD 9979 [facility] [address] [place] [address] Consulting Physician Psychiatry 09/05/18 10/06/22 Mateus Tran MD 9979 [facility] 204 [place] [address] Consulting Physician Neurology 10/26/18 Bruce Garcia MD 9979 [facility] 204 [place] [address] Consulting Physician Gastroenterology 12/05/18 Jimenez Shaw MD [address]40 [place] [address] Consulting Physician Ophthalmology 12/06/18 Иван Singh MD [address]40 [place] [address] Consulting Physician Urology 03/07/19 Myriam Abdullahi NP [address]40 [place] [address] Nurse Practitioner Dermatology 04/08/19 Dakota Marroquin MD [address]40 [place] [address] Consulting Physician Gastroenterology 05/21/19 Daniel Rubin MD 1225 [facility] [address], [address] [place] [address] Consulting Physician Cardiology 09/11/19 [place] [address] [facility] [address] [place] [address] Consulting Physician Neurology 06/20/20 Jay Meadows MD [address] [place] [address] Consulting Physician Orthopedic Surgery 07/26/20 Larry Blokc DPM [address] [place] [address] Consulting Physician Orthopedic Surgery 12/02/20 [place] [address] [place] [address] Consulting Physician Orthopedic Surgery 12/19/20 Ata Flores MD [address] [place] [address] Referring Physician Endocrinology Diabetes & Metabolism 08/25/21 Rae Pérez OD [address] [place] [address] Consulting Physician Optometry 08/18/21 Logan Mitchell MD [address] [place] [address] Consulting Physician Allergy and Immunology 05/20/22 Frank Rodriguez NP [address] [place] [address] [address] [place] [address] Nurse Practitioner Psychiatry 09/17/22 Rebecca Watkins MD [address] [phone] [place] [address] Consulting Physician Colon and Rectal Surgery 01/20/23 Ceci Chanel, [address] [place] [address] Pharmacist Pharmacy 08/07/24 08/07/24 Madelyn Church MD [id number] [place] [address] Referring Physician Nephrology 05/02/24 Josi Zamora, [place] [address] [place] [address] Consulting Physician Optometry 10/16/24 Madelyn Church MD [address] [place] [address] Referring Physician Nephrology 12/26/24 04/15/25 documented as of this encounter
--- OUTSIDE RECORDS SUMMARY | 2025-04-23 13:09 | XMS_ITS ---
Author Organization [facility] Address [facility] [facility] [address] [facility] [address] [place] [address] Care Team Providers Care Sample Tester Grinder Name Role Phone Michael KENNEDY, Ozzie Primary Care Provider Unavailab Frank Kumar Unavailable [phone] Ladan Green Unavailable [phone] REASON FOR VISIT Therapy Visit Social History Sex Assigned At : Social History Observation Description Sex Assigned At Female Encounters Encounter Location Date Provider Diagnosis [facility] S[facility]ism [address] [facility] [address] [place] [address] 03/05/2025 Ladan Garcia Plan Of Treatment Next Appt Details Provider Name:Frank dong, 05/08/2025 10:00:00 AM, [facility], [facility] [address], [place], [address], Provider Name:Ladan Garcia, 05/29/2025 11:00:00 AM, [address] [facility], [address], [address], Provider Name:Ladan Garcia, 06/26/2025 11:00:00 AM, [address] [facility] [address], [address], [address], Provider Name:Ladan Garcia, 07/17/2025 11:00:00 AM, [address], [address], [address], Provider Name:Ladan Garcia, 08/07/2025 11:00:00 AM, [address], [facility] [address], [place], [address], Progress Notes * PAULINE BARBAOB: [birth year] (69 yo F)Acc No.[id number]:03/05/2025 Patient: SANGEETHA YUNG Provider: Gildardo GARCIA LCSW :1955 A ge:69 Y S ex:Female Date:03/05/2025 [facility] Pcp:Ozzie Rodriguez MD Data: * Chief Complaints: * 1 . Therapy Visit. Assessment: Plan: * Treatment: * Billing Information: * Visit Code: * Procedure Codes: * Electronic signature of Cristiana Garcia LCSW on 04/23/2025 at 01:09 PM CDT Sign off status: Pending Signatures: No Ad Hoc Signature Added * Provider: Gildardo GARCIA LCSW Date: 0 03/05/2025 Generated for Oscar zhou/Kristie/eTransmitting on: 0 04/23/2025 01:09 PM CDT
--- OUTSIDE RECORDS SUMMARY | 2025-04-23 13:09 | XMS_ITS ---
Author Organization [facility] Address [address] [address] Care Team Providers Care Emergency Veterinary Assistant Name Role Phone Ozzie oRdriguez Primary Care Provider Ata Hardin Unavailable [phone] REASON FOR VISIT RE:Lab Results Encounters Encounter Location Date Provider Diagnosis [facility] 222 [facility] [address] [address] 01/05/2025 Ata Flores PLAN OF TREATMENT Next Appt Details Provider Name:Ata Flores, 04/30/2025 10:30:00 AM, [address], [address],
--- OUTSIDE RECORDS SUMMARY | 2025-04-23 13:09 | XMS_ITS | Encounter Summary ---
Author Organization [facility] Address 1 [facility] [place] [address] Phone Care Team Providers Care Dietetic Intern Name Role Phone Ozzie Rodriguez MD Primary Care Provider Stefan Marroquin MD Unavailable Mateus Tran MD Unavailable Bruce Garcia MD Unavailable Jimenez Shaw MD Unavailable Иван Singh MD Unavailable Myriam Abdullahi PANAMA HAT BLOCKER Unavailable Dakota Marroquin MD Unavailable Daniel Rubin MD Unavailable Loni RODRIGUES MD, Carlos M. Unavailable [phone] Jay Meadows MD Unavailable [phone] Larry Block DPM Unavailable Yaw Menchaca MD Unavailable + Ata Flores MD Unavailable [phone] Rae Pérez OD Unavailable Logan Mitchell MD Unavailable Frank Rodriguez PANAMA HAT BLOCKER Unavailable [phone] Rebecca Watkins MD Unavailable [phone] Ceci Chanel [facility] Unavailable [phone] Madelyn Church MD Unavailable [phone] Josi Zamora OD Unavailable Madelyn Church MD Unavailable Encounter Details Date Type Department Care Team (Late st Contact Info) Description 06/30/2022 Orders Only [facility] [address] [place] [address] Ozzie Rodriguez MD [address] [place] [address] Social History Tobacco Use Types Packs/Day Years Used Date Smoking Tobacco: Never Smokeless Tobacco: Never Alcohol Use Standard Drinks/Week Comments Yes 1 (1 standard drink = 0.6 oz pure alcohol) Social drinker maybe 1 or 2 per month AUDIT-C Answer Date Recorded Q1: How often do you have a drink containing alc ohol? Monthly or less 05/12/2021 Q2: How many drinks containi ng alcohol do you have on a typical day when you are drinking? 1 or 2 05/12/2021 Frequency of Binge Drinking Not on file 04/27 PHQ-2 Answer Date Recorded PHQ-2 Total Score (If total score is 3 or more points, staff should administer the PHQ-9) 0 09/12/2021 Comments No Sex and Gender Information Value Date Recorded Sex Assigned at Not on file Legal Sex Female 8:34 AM ACCESSORIES REPAIRER Gender Identity Female 12/01/2021 9:28 PM ACCESSORIES REPAIRER Sexual Orientation Straight 10/31/2020 6: 30 PM ACCESSORIES REPAIRER Occupation Industry Job Start Date Job End Date retired Not on file Not on file Not on file documented as of this encounter Plan of Treatment Not on file documented as of this encounter Procedures Procedure Name Priority Date/Time Associated Diagnosis Comments SCAN - LABS 06/30/2022 documented in this encounter Results * SCAN - LABS (06/30/2022) Ozzie Rodriguez MD Final Result documented in this encounter Visit Diagnoses Not on filedocumented in this encounter Additional Health Concerns Infection Onset Date Last Indicated Resolved Time C. difficile suspected 12/01/2024 12/01/202412/02 3:05 AM ACCESSORIES REPAIRER documented as of this encounter Care Teams Dietetic Intern Relationship Specialty Start Date End Date Ozzie Rodriguez MD [address] [place] [address] PCP - General Infectious Diseases 05/02/18 Stefan Marroquin MD [address] [address] Consulting Physician Psychiatry 09/05/18 10/06/22 Mateus Tran MD [address] [address] Consulting Physician Neurology 10/26/18 Bruce Garcia MD [address] [address] Consulting Physician Gastroenterology 12/05/18 Jimenez Shaw MD 9540 [place] [address] Consulting Physician Ophthalmology 12/06/18 Иван Singh MD 9540 [place] [address] Consulting Physician Urology 03/07/19 Myriam Abdullahi NP 9540 [place] [address] Nurse Practitioner Dermatology 04/08/19 Dakota Marroquin MD 9540 [place], [place] [address] Consulting Physician Gastroenterology 05/21/19 Daniel Rubin MD 1225 [facility] C [address] [facility] C, [address] [place] [address] Consulting Physician Cardiology 09/11/19 [place] [address] [facility] [address] [place] [address] Consulting Physician Neurology 06/20/20 Jay Meadows MD [address] [facility] 100 [place] [address] Consulting Physician Orthopedic Surgery 07/26/20 Larry Block DPM [address] [facility] 100 [place] [address] Consulting Physician Orthopedic Surgery 12/02/20 [place] [address] [facility] [address] [place] [address] Consulting Physician Orthopedic Surgery 12/19/20 Ata Flores MD [address] [place] [address] Referring Physician Endocrinology Diabetes & Metabolism 08/25/21 Rae Pérez OD [address] [place] [address] Consulting Physician Optometry 08/18/21 Logan Mitchell MD 4 [employer] [address] Consulting Physician Allergy and Immunology 05/20/22 Frank Rodriguez, [place] [address] [place] [address] Nurse Practitioner Psychiatry 09/17/22 Rebecca Watkins MD [address] [phone] [place] [address] Consulting Physician Colon and Rectal Surgery 01/20/23 Ceci Chanel, [address] [place] [address] Pharmacist Pharmacy 08/07/24 08/07/24 Madelyn Church MD [address] [facility] [address] [place] [address] Referring Physician Nephrology 05/02/24 Josi Zamora OD [address] [place] [address] Consulting Physician Optometry 10/16/24 Madelyn Church MD [address] [place] [address] Referring Physician Nephrology 12/26/24 04/15/25 documented as of this encounter
--- OUTSIDE RECORDS SUMMARY | 2025-04-23 13:09 | XMS_ITS | Encounter Summary ---
Author Organization [facility] Address [address] [place] [address] Care Team Providers Care Handbag Finisher Name Role Phone Ozzie Rodriguez MD Primary Care Provider Mateus Tran MD Unavailable Bruce Garcia MD Unavailable Jimenez Shaw MD Unavailable Иван Singh MD Unavailable Myriam Abdullahi HOME CARE MUSIC THERAPIST Unavailable Dakota Marroquin MD Unavailable Daniel Rubin MD Unavailable Loni RODRIGUES MD, Henri Price Unavailable Jay Meadows MD Unavailable Larry Block DPM Unavailable Yaw Menchaca MD Unavailable + Ata Flores MD Unavailable [phone] Rae Pérez OD Unavailable Logan Mitchell MD Unavailable [phone] Frank Rodriguez HOME CARE MUSIC THERAPIST Unavailable Rebecca Watkins MD Unavailable Madelyn Church MD Unavailable [phone] Josi Zamora OD Unavailable [phone] Madelyn Church MD Unavailable [phone] Encounter Details Date Type Department Care Team (Late st Contact Info) Description 04/09/2025 Results Follow-Up [facility] [address] [place] [address] Ozzie Rodriguez MD [address] [place] [address] Hemoglobin A1c, Comprehensive metabolic panel, Albumin Creatinine Ratio, Urine, Additional followed-up results: 3 Social History Tobacco Use Types Packs/Day Years Used Date Smoking Tobacco: Never Smokeless Tobacco: Never Alcohol Use Standard Drinks/Week Comments Yes 1 (1 standard drink = 0.6 oz pure alcohol) Social drinker maybe 1 or 2 per month AUDIT-C Answer Date Recorded Q1: How often do you have a drink containing alc ohol? Monthly or less 10/26/2023 Q2: How many drinks containi ng alcohol do you have on a typical day when you are drinking? 1 or 2 10/26/2023 Q3: How often do you have si x or more drinks on one occasion? Never 10/26/2023 PHQ-2 Answer Date Recorded PHQ-2 Total Score (If total score is 3 or more points, staff should administer the PHQ-9) 2 10/16/2024 Personal Safety Answer Date Recorded Have you ever been in or are you currently in a harmful physical or emotional relationship or is someone making you feel afraid or unsafe? Denies 10/26/2023 Comments No Sex and Gender Information Value Date Recorded Sex Assigned at Not on file Legal Sex Female 8:34 AM MILLING PLANER OPERATOR Gender Identity Female 12/01/2021 9:28 PM MILLING PLANER OPERATOR Sexual Orientation Straight 10/31/2020 6: 30 PM MILLING PLANER OPERATOR Occupation Industry Job Start Date Job End Date retired Not on file Not on file Not on file documented as of this encounter Plan of Treatment Not on file documented as of this encounter Visit Diagnoses Not on filedocumented in this encounter Care Teams Handbag Finisher Relationship Specialty Start Date End Date Ozzie Rodriguez MD [address] [place] [address] PCP - General Infectious Diseases 05/02/18 Mateus Tran MD [address] [place] [address] Consulting Physician Neurology 10/26/18 Bruce Garcia MD [address] [place] [address] Consulting Physician Gastroenterology 12/05/18 Jimenez Shaw MD [address]40 [place] [address] Consulting Physician Ophthalmology 12/06/18 Иван Singh MD [address]40 [place] [address] Consulting Physician Urology 03/07/19 Myriam Abdullahi NP [address]40 [place] [address] Nurse Practitioner Dermatology 04/08/19 Dakota Marroquin MD [address]40 [place] [address] Consulting Physician Gastroenterology 05/21/19 Daniel Rubin MD [address] [facility] [address], [facility] [address]10 [place], [place] [address] Consulting Physician Cardiology 09/11/19 [place] [address] [facility] [address] [place] [address] Consulting Physician Neurology 06/20/20 Jay Meadows MD [address] [facility] 100 [place] [address] Consulting Physician Orthopedic Surgery 07/26/20 Larry Block DPM [address] [facility] 100 [place] [address] Consulting Physician Orthopedic Surgery 12/02/20 [place] [address] [facility] 115 [place] [address] Consulting Physician Orthopedic Surgery 12/19/20 Ata Flores MD [address] [place] [address] Referring Physician Endocrinology Diabetes & Metabolism 08/25/21 Rae Pérez OD [address] [place] [address] Consulting Physician Optometry 08/18/21 Logan Mitchell MD COUNTRY [facility] EXECUTIVE [facility] [place] [address] Consulting Physician Allergy and Immunology 05/20/22 Frank Rodriguez, [place] [address] [place] [address] Nurse Practitioner Psychiatry 09/17/22 Rebecca Watkins MD [address] [phone] [place] [address] Consulting Physician Colon and Rectal Surgery 01/20/23 Madelyn Church MD [address] [address] Referring Physician Nephrology 05/02/24 Josi Zamora OD [address] [place] [address] Consulting Physician Optometry 10/16/24 Madelyn Church MD [id number] [place] [address] Referring Physician Nephrology 12/26/24 04/15/25 documented as of this encounter
--- OUTSIDE RECORDS SUMMARY | 2025-04-23 13:09 | XMS_ITS | Encounter Summary ---
Author Organization [facility] Address 1 [facility] [place] [address] Phone Care Team Providers Care Home Management Supervisor Name Role Phone Ozzie Rodriguez MD Primary Care Provider [phone] Stefan Marroquin MD Unavailable Mateus Tran MD Unavailable Bruce Garcia MD Unavailable Jimenez Shaw MD Unavailable Иван Singh MD Unavailable Myriam Abdullahi INSTRUCTOR PAINTING Unavailable Dakota Marroquin MD Unavailable Daniel Rubin MD Unavailable Loni RODRIGUES MD, Carlos M. Unavailable Jay Meadows MD Unavailable Larry Block DPM Unavailable Yaw Menchaca MD Unavailable + Ata Flores MD Unavailable [phone] Rae Pérez OD Unavailable Logan Mitchell MD Unavailable [phone] Frank Rodriguez INSTRUCTOR PAINTING Unavailable [phone] Rebecca Watkins MD Unavailable [phone] Ceci Chanel [facility] Unavailable [phone] Madelyn Church MD Unavailable [phone] Josi Zamora OD Unavailable [phone] Madelyn Church MD Unavailable [phone] Encounter Details Date Type Department Care Team (Late st Contact Info) Description 10/27/2021 Orders Only [facility] [address] [place] [address] Ozzie Rodriguez MD [address] [place] [address] Social History Tobacco Use Types Packs/Day [...] on file Legal Sex Female 8:34 AM CYBER SECURITY CONSULTANT Gender Identity Female 12/01/2021 9:28 PM CYBER SECURITY CONSULTANT Sexual Orientation Straight 10/31/2020 6: 30 PM CYBER SECURITY CONSULTANT Occupation Industry Job Start Date Job End Date retired Not on file Not on file Not on file documented as of this encounter Plan of Treatment Not on file documented as of this encounter Procedures Procedure Name Priority Date/Time Associated Diagnosis Comments SCAN - LABS 10/27/2021 documented in this encounter Results * SCAN - LABS (10/27/2021) Ozzie Rodriguez MD Final Result documented in this encounter Visit Diagnoses Not on filedocumented in this encounter Additional Health Concerns Infection Onset Date Last Indicated Resolved Time C. difficile suspected 12/01/2024 12/01/202412/02 3:05 AM CYBER SECURITY CONSULTANT documented as of this encounter Care Teams Home Management Supervisor Relationship Specialty Start Date End Date Ozzie Rodriguez MD [address] [place] [address] PCP - General Infectious Diseases 05/02/18 Stefan Marroquin MD [address] [address] Consulting Physician Psychiatry 09/05/18 10/06/22 Mateus Tran MD [address] [address] Consulting Physician Neurology 10/26/18 Bruce Garcia MD [address] [address] Consulting Physician Gastroenterology 12/05/18 Jimenez Shaw MD [address]40 [place] [address] Consulting Physician Ophthalmology 12/06/18 Иван Singh MD [address] [place] [address] Consulting Physician Urology 03/07/19 Myriam Abdullahi NP [address]40 [place] [address] Nurse Practitioner Dermatology 04/08/19 Dakota Marroquin MD [address] [place], [place] [address] Consulting Physician Gastroenterology 05/21/19 Daniel Rubin MD 1225 [facility] C [address] [facility] C, [address] [place] [address] Consulting Physician Cardiology 09/11/19 [place] [address] [facility] [address] [place] [address] Consulting Physician Neurology 06/20/20 Jay Meadows MD [address] [facility] 100 [place] [address] Consulting Physician Orthopedic Surgery 07/26/20 Larry Block DPM [address] [facility] 100 [place] [address] Consulting Physician Orthopedic Surgery 12/02/20 [place] [address] [facility] 115 [place] [address] Consulting Physician Orthopedic Surgery 12/19/20 Ata Flores MD [address] [place] [address] Referring Physician Endocrinology Diabetes & Metabolism 08/25/21 Rae Pérez OD [address] [place] [address] Consulting Physician Optometry 08/18/21 Logan Mitchell MD 4 [employer] [address] Consulting Physician Allergy and Immunology 05/20/22 Frank Rodriguez, [place] [address] [place] [address] Nurse Practitioner Psychiatry 09/17/22 Rebecca Watkins MD [address] [phone] [place] [address] Consulting Physician Colon and Rectal Surgery 01/20/23 Ceci Chanel, [address] [place] [address] Pharmacist Pharmacy 08/07/24 08/07/24 Madelyn Church MD [address] [place] [address] Referring Physician Nephrology 05/02/24 Josi Zamora OD [address] [address] Consulting Physician Optometry 10/16/24 Madelyn Church MD [address] [place] [address] Referring Physician Nephrology 12/26/24 04/15/25 documented as of this encounter
--- OUTSIDE RECORDS SUMMARY | 2025-04-23 13:09 | XMS_ITS | Encounter Summary ---
Author Organization [facility] Address [address] [place] [address] Care Team Providers Care Safety Scientist Name Role Phone Ozzie Rodriguez MD Primary Care Provider Mateus Tran MD Unavailable Bruce Garcia MD Unavailable Jimenez Shaw MD Unavailable [phone] Иван Singh MD Unavailable Myriam Abdullahi SHUTDOWN COORDINATOR Unavailable Dakota Marroquin MD Unavailable Daniel Rubin MD Unavailable Loni RODRIGUES MD, Henri Price Unavailable Jay Meadows MD Unavailable [phone] Larry Block DPM Unavailable Yaw Menchaca MD Unavailable + Ata Flores MD Unavailable [phone] Rae Pérez OD Unavailable Logan Mitchell MD Unavailable Frank Rodriguez SHUTDOWN COORDINATOR Unavailable Rebecca Watkins MD Unavailable [phone] Ceci Chanel [facility] Unavailable Madelyn Church MD Unavailable [phone] Josi Zamora OD Unavailable [phone] Madelyn Church MD Unavailable [phone] Encounter Details Date Type Department Care Team (Late st Contact Info) Description 04/26/2024 Orders Only [facility] [address] [place] [address] Scanning, Provider Social History Tobacco Use Types [...] points, staff should administer the PHQ-9) 0 10/13/2023 Personal Safety Answer Date Recorded Have you ever been in or are you currently in a harmful physical or emotional relationship or is someone making you feel afraid or unsafe? Denies 10/26/2023 Comments No Sex and Gender Information Value Date Recorded Sex Assigned at Not on file Legal Sex Female 8:34 AM DIGESTER OPERATOR Gender Identity Female 12/01/2021 9:28 PM DIGESTER OPERATOR Sexual Orientation Straight 10/31/2020 6: 30 PM DIGESTER OPERATOR Occupation Industry Job Start Date Job End Date retired Not on file Not on file Not on file documented as of this encounter Plan of Treatment Not on file documented as of this encounter Procedures Procedure Name Priority Date/Time Associated Diagnosis Comments SCAN - LABS 04/26/2024 documented in this encounter Results * SCAN - LABS (04/26/2024) us Provider Scanning Final Result documented in this encounter Visit Diagnoses Not on filedocumented in this encounter Additional Health Concerns Infection Onset Date Last Indicated Resolved Time C. difficile suspected 12/01/2024 12/01/202412/02 3:05 AM DIGESTER OPERATOR documented as of this encounter Care Teams Safety Scientist Relationship Specialty Start Date End Date Ozzie Rodriguez MD [address] [place] [address] PCP - General Infectious Diseases 05/02/18 Mateus Tran MD [address] [place] [address] Consulting Physician Neurology 10/26/18 Bruce Garcia MD [address] [place] [address] Consulting Physician Gastroenterology 12/05/18 Jimenez Shaw MD [address] [place] [address] Consulting Physician Ophthalmology 12/06/18 Иван Singh MD [address] [place] [address] Consulting Physician Urology 03/07/19 Myriam Abdullahi NP [address] [place] [address] Nurse Practitioner Dermatology 04/08/19 Dakota Marroquin MD [address] [place] [address] Consulting Physician Gastroenterology 05/21/19 Daniel Rubin MD [address] [facility] [address] [facility] [address], [address] [place] [address] Consulting Physician Cardiology 09/11/19 [place] [address] [facility] [address] [place] [address] Consulting Physician Neurology 06/20/20 Jay Meadows MD [address] [facility] [address] [place] [address] Consulting Physician Orthopedic Surgery 07/26/20 Larry Block DPM [address] [facility] [address] [place] [address] Consulting Physician Orthopedic Surgery 12/02/20 [place] [address] [facility] [address] [place] [address] Consulting Physician Orthopedic Surgery 12/19/20 Ata Flores MD [address] [place] [address] Referring Physician Endocrinology Diabetes & Metabolism 08/25/21 Rae Pérez OD [address] [place] [address] Consulting Physician Optometry 08/18/21 Logan Mitchell MD [address] [employer] [place] [address] Consulting Physician Allergy and Immunology 05/20/22 Frank Rodriguez NP [address] [place] [address] Nurse Practitioner Psychiatry 09/17/22 Rebecca Watkins MD [phone] [place] [address] Consulting Physician Colon and Rectal Surgery 01/20/23 Ceci Chanel, [address] [place] [address] Pharmacist Pharmacy 08/07/24 08/07/24 Madelyn Church MD [id number] [place] [address] Referring Physician Nephrology 05/02/24 Josi Zamora OD [address] [place] [address] Consulting Physician Optometry 10/16/24 Madelyn Church MD [id number] [place] [address] Referring Physician Nephrology 12/26/24 04/15/25 documented as of this encounter
--- OUTSIDE RECORDS SUMMARY | 2025-04-23 13:09 | XMS_ITS | Referral Summary ---
Author Organization [facility] [address] Address [address] [place] [address] Phone Care Team Providers Care Refrigeration Brazer/Solderer Name Role Phone Lynn Perry MD Primary Care Provider [phone] Mateus Tran MD Unavailable Bruce Garcia MD Unavailable Jimenez Shaw MD Unavailable Иван Singh MD Unavailable Myriam Abdullahi LODGE ATTENDANT Unavailable Dakota Marroquin MD Unavailable Daniel Rubin MD Unavailable Loni RODRIGUES MD, Carlos M. Unavailable Jay Meadows MD Unavailable Larry Block DPM Unavailable Yaw Menchaca MD Unavailable + Ata Flores MD Unavailable [phone] Rae Pérez OD Unavailable Logan Mitchell MD Unavailable Frank Rodriguez LODGE ATTENDANT Unavailable [phone] Rebecca Watkins MD Unavailable Madelyn Church MD Unavailable [phone] Josi Zamora OD Unavailable [phone] Encounters Date Type Department Care Team Description 04/16/2025 11:30 AM CDT Office Visit [facility] [address] [place] [address] Lynn Perry MD Type 2 diabetes mellitus with diabetic polyneuropathy, without long-term current use of insulin (HCC) (Primary Dx); Hypertension associated with type 2 diabetes mellitus (HCC); Hyperlipidemia associated with type 2 diabetes mellitus (HCC); Adult hypothyroidism; TOMAS (obstructive sleep apnea); Stage 3a chronic kidney disease (HCC) 04/09/2025 Results Follow-Up [facility] [address] [place] [address] Lynn Perry MD Hemoglobin A1c, Comprehensive metabolic panel, Albumin Creatinine Ratio, Urine, Additional followed-up results: 3 04/09/2025 12:00 PM CDT Lab [facility] [address] [place] [address] Medicare annual wellness visit, subsequent; Type 2 diabetes mellitus with diabetic polyneuropathy, without long-term current use of insulin (HCC); Hypertension associated with type 2 diabetes mellitus (HCC); Hyperlipidemia associated with type 2 diabetes mellitus (HCC); Adult hypothyroidism 03/01/2025 2:40 PM CDT Office Visit [facility] [address] [place] [address] [place] [address] Dakota Marroquin MD Chronic idiopathic constipation (Primary Dx) 01/31/2025 9:30 AM CDT Office Visit [facility] [address] [place] [address] Daniel Rubin MD Hypertension associated with type 2 diabetes mellitus (HCC) (Primary Dx); Orthostatic dizziness; History of CVA (cerebrovascular accident); Myalgia due to HMG CoA reductase inhibitor from Last 3 Months Allergies Active Allergy Reactions Criticality Noted Date Comments Beta-Blockers (Beta-Adrenergic Blocking Agts) Shortness of breath,Other (See comments) High 04/08/2019 Chocolate Unknown 01/09/2019 Ciprofibrate Hives,Other (See comments) Medium 08/04/2018 Thick tongue Ciprofloxacin Hives,Angioedema,Oth e r (See comments),Unknown High 04/21/2017 Tongue swelling Codeine Hives,Unknown Medium 04/21/2017 Other reaction(s): Rash, ItchyEyes, DifficultyBreat Cornflower Unknown 08/14/2019 Propoxyphene-Acetami nophen Hives Medium 08/04/2018 Meperidine Anaphylaxis High 08/04/2018 Metronidazole Hallucinations Medium 08/04/2018 Hydrocodone-Acetamin ophen Hives Medium 08/04/2018 Meperidine Hcl Unknown 04/21/2017 Other reaction(s): Unknown Morphine Unknown 11/28/2018 Other reaction(s): Rash, ItchyEyes Penicillins Unknown 04/21/2017 Other reaction(s): Rash, Unknown Preservative Unknown 04/21/2017 Propoxyphene Hcl Unknown 04/21/2017 Other reaction(s): Unknown Taksgmp-Yys-Xby Reductase Inhibitors Muscle pain Medium 03/27/2019 Sulfa (Sulfonamide Antibiotics) Hives,Other (See comments),Unknown Medium 04/21/2017 Other reaction(s): Rash, ItchyEyes, Unknown Pentazocine Hives,Other (See comments) Medium 08/04/2018 Sore throat Medications cyanocobalamin (Vitamin B-12) 1,000 mcg tabletIndications :Prevention of Vitamin B12 Deficiency Take 1 tablet (1,000 mcg total) by mouth daily Active buPROPion XL (WELLBUTRIN XL) 300 mg 24 hr tablet Take 1 tablet (300 mg total) by mouth daily 1 Active multivitamin capsule Take 1 capsule by mouth daily Active vilazodone (VIIBRYD) 20 mg tablet Take 1 tablet (20 mg total) by mouth daily 3 Active latanoprost (XALATAN) 0.005 % ophthalmic solutionIndicatio ns:ocular hypertension Administer 1 drop into both eyes nightly Active cholecalciferol (Vitamin D3) 5,000 unit tablet Take 125 mcg by mouth daily 2 Active semaglutide (Ozempic) 2 mg/dose (8 mg/3 mL) pen injector injection Inject 2 mg under the skin once a week 4 Active Restasis 0.05 % ophthalmic emulsion 1 drop 2 (two) times a day 4 Active brimonidine-timol oL (COMBIGAN) 0.2-0.5 % ophthalmic solution Administer 1 drop into both eyes 2 (two) times a day 4 Active LORazepam (ATIVAN) 0.5 mg tablet Take 1 tablet (0.5 mg total) by mouth daily as needed for anxiety Paul Rodriguez. 4 Active Linzess 290 mcg capsule TAKE 1 CAPSULE(290 MCG) BY MOUTH DAILY 90 capsule [address] (VOLTAREN) 75 mg EC tabletIndications :Arthralgia of both hands Take 1 tablet (75 mg total) by mouth 2 (two) times a day as needed for pain 90 tablet 1 5 Active tiZANidine (ZANAFLEX) 4 mg tablet Take 1 tablet (4 mg total) by mouth daily 5 Active levothyroxine (SYNTHROID) 100 mcg tablet Take 1 tablet (100 mcg total) by mouth early childhood director before breakfast 5 Active midodrine (PROAMATINE) 2.5 mg tabletIndications :Symptomatic Orthostatic Hypotension Take 1 tablet (2.5 mg total) by mouth 2 (two) times a day 90 tablet 3 5 Active clopidogreL (PLAVIX) 75 mg tabletIndications :Hyperlipidemia associated with type 2 diabetes mellitus (HCC) Take 1 tablet (75 mg total) by mouth daily 90 tablet 5 Active Active Problems Problem Noted Date Diagnosed Date Statin myopathy 08/07/2024 Overview (08/07/2024): Do not recommend statin re-trial given history of intolerance (myopathy). Provider to consider billing statin myopathy (G72.0) with assessment/plan in note at upcoming visits (and on annual basis) to remove patient from Medicare Part D Statin Gap report. Stage 3a chronic kidney disease 10/12/2023 Assessment & Plan (04/15/2025 2:50 PM CDT): See [facility] HPI/AP. Assessment & Plan (10/16/2024 11:37 AM TRUCKING SUPERVISOR): Chronic, noted about a year ago and expected to last more than a year. Creatinine is relatively stable at this time. She uses diclofenac rarely for joint pains. We will see her back in six months with follow-up labs. Lab Results Component Value Date GLUCOSE 104 10/06/2024 CALCIUM 9.5 10/06/2024 SODIUM 138 10/06/2024 POTASSIUM 4.2 10/06/2024 CO2 23 10/06/2024 CHLORIDE 103 10/06/2024 BUNSER 23 10/06/2024 CREATININE 1.10 10/06/2024 Assessment & Plan (04/18/2024 9:41 AM CDT): Chronic, stable but at risk. We discussed the effects of nonsteroidals on kidney function, but she rarely uses them so I think the risk is minimized. Kidney function is being monitored closely. We will see her back in six months with additional labs Lab Results Component Value Date GLUCOSE 89 02/24/2024 CALCIUM 9.6 02/24/2024 SODIUM 138 02/24/2024 POTASSIUM 4.2 02/24/2024 CO2 29 02/24/2024 CHLORIDE 102 02/24/2024 BUNSER 23 02/24/2024 CREATININE 1.33 (H) 02/24/2024 Assessment & Plan (10/13/2023 1:05 PM TRUCKING SUPERVISOR): Kidney function is being monitored closely with regular labs drawn in her tar and ammonia pump operator office, Dr. Flores. We will request any available recent results. Chronic idiopathic constipation 09/10/2023 Screening for colorectal cancer 09/10/2023 Dysphagia 09/10/2023 Pill dysphagia 08/30/2023 Overview (09/13/2023): Big pills get stuck below thyroid area. Assessment & Plan (09/13/2023 10:02 AM TRUCKING SUPERVISOR): About two weeks ago, she started to notice difficulty swallowing her larger pills. The sensation occurs in the same general area as the pain and tenderness of the right sternoclavicular joint. We are getting a CT of the soft tissue to evaluate for possible developing mass. Pain of right clavicle 08/09/2023 Overview (09/13/2023): No injury that she remembers, has been lifting a lot of heavy things like baskets of food. Pain is getting worse over 6 weeks and seems to be affecting her swallowing. Started when she was wearing her 30 day event monitor. Assessment & Plan (09/27/2023 5:06 PM TRUCKING SUPERVISOR): Symptoms started about six weeks ago and are getting worse over time. She describes initially intermittent and now more or less constant pain in the right sternoclavicular joint. Sleeping is difficult due to the pain. She has trouble lifting and carrying things. About the only change in activity is lifting heavy boxes of canned foods. There is no history of injury. In addition to the anterior sternoclavicular joint pain, she describes soreness of the right shoulder blade area, mostly in the rhomboides muscles. Exam is notable for some mild but definite tender swelling of the right sternoclavicular joint. Range of motion is not limited. Vascular exam at the wrists is normal. She is taking Voltaren for back pain prescribed by her neurologist, but this is not helping the clavicle pain. The cause of the patient's symptoms is unclear. In view of developing dysphagia in the same area as her pain and tenderness, we requested a stat CT with contrast to evaluate for developing mass. Depending on results, we may recommend additional testing, treatment modification, or referral. Abnormal EKG 07/05/2023 Assessment & Plan (07/05/2023 2:50 PM CDT): Patient had a reportedly abnormal EKG during a recent sleep study this month at [facility]. Images of the EKG were obtained. EKG interpretation- normal sinus rhythm per Dr. Perry Will obtain 30-day event monitor for further evaluation to r/o any underlying arrthymias or abnormal rhythm. Patient is positive for fatigue, otherwise, denies any other associated symptoms. Fatigue 07/01/2023 Assessment & Plan (04/12/2024 10:58 AM CDT): Chronic, uncontrolled. She feels more fatigued than usual. It seemed to start after the dose of levothyroxine was lowered so she plans to discuss this with endocrinology at her upcoming visit. She also has sleep apnea but is compliant with therapy and scored and 96 on her wilder recently. We will monitor clinically. Assessment & Plan (07/01/2023 1:55 PM CDT): Abnormal EKG reading found on sleep study Acute maxillary sinusitis 01/04/2023 Overview (12/10/2023): Recurrent symptoms including December 2022 and November 2023. Colonic inertia 12/17/2022 Overview (12/17/2022): Added automatically from request for surgery [id number] Dry mouth 05/06/2022 Overview (10/12/2023): [facility] entry, details lacking. Dry eyes 05/06/2022 Overview (10/12/2023): [facility] entry, details lacking. Low bone density 01/02/2022 Overview (01/08/2022): Low bone density of spine, T-score -1.1, [facility]. Ankle swelling 12/27/2019 Overview (01/25/2020): Intermittent bilateral ankle swelling associated with burning and itching. Thought it was related to shell fish, so she stopped eating shell fish, but they are still swelling latter in the day and evening. Sometimes hurt all night. Has restless legs in the thighs, improved with iron+vit C. Ankle swelling started about a month ago and is happening more and more. Assessment & Plan (02/03/2020 12:24 PM CDT): She has noted some intermittent bilateral ankle swelling for the past month, associated with a burning and itching sensation. At first, she thought it was related to eating shellfish, but the swelling has persisted even though she stopped consuming this food. It started about a month ago and seems to be occurring more frequently. Exam today shows no significant swelling. Dorsal pedal pulses are 2+ bilaterally. There is no warmth or redness to suggest arthritis or cellulitis. The patient relates that she has been taking [id number] Aleve to help with hand arthralgias. This may be partly responsible for some intermittent fluid retention and swelling in her ankles. Likewise her blood pressure medicine, amlodipine, can be associated with swelling in the ankles. She also has some mild diastolic dysfunction which might be contributing. She may have a degree of venous insufficiency. For now, recommend that she keep her legs elevated when not up and about. She has support hose, but does not like to wear them because they are uncomfortable. I encouraged her to give it a try again because this might help control the swelling when she is up and about. I also recommend that she follow-up with her diesel pile hammer operator, Dr. Rubin, to consider a possible change in blood pressure medication from amlodipine to an alternative agent, or to modify her diuretic therapy. Follow-up here as scheduled for this problem. Rash 10/29/2019 Overview (11/03/2019): If her thyroid is out of whack, gets a pimple or two on upper right back. Current rash is very pruritic, raised. Assessment & Plan (11/03/2019 11:17 AM TRUCKING SUPERVISOR): Last Wednesday, she noted and itchy and red spot on the upper border of the right trapezius muscle just posterior to the supraclavicular fossa. It was slightly raised and bumpy. It has improved since it first appeared. Exam shows an area of mild localized redness and skin thickening with the slight papular feel, but no vesicles or ulcerations. She has a history of eczema many years ago affecting primarily her elbows from time to time. This is probably a mild flare an eczema type rash. She will try some nflm-icg-[id number] hydrocortisone cream for couple of weeks. If no improvement, return for re-evaluation. Arthralgia of both hands 09/25/2019 Overview (01/25/2020): Worsening pains in both hands for 3-4 months. No overuse. History of CTS in right hand, S/P CTS surgery. Trigger finger, index and thumb of left hand, treated with ultrasound, acupuncture and something else. Can't have steroids due to glaucoma. Treated in [place]. Assessment & Plan (04/18/2024 9:39 AM CDT): Chronic, fair control. She takes diclofenac 75 mg occasionally, probably once or twice a month so potential adverse effects are minimized at this dose. We sent in refills Assessment & Plan (02/03/2020 12:26 PM CDT): She has had worsening pains in both hands for the last 3-4 months. She thinks it is getting worse. The hands basically hurt all the time, but symptoms are worse at night. She has a history of carpal tunnel syndrome in the right hand treated surgically, and trigger fingers in the thumb and index fingers of the left hand, treated with ultrasound, acupuncture and some other treatment she does not recall. She had all of these treatments when she was in [facility]. The current hand pain shares some features with possible tenosynovitis or carpal tunnel including sharp pains that occur in certain positions. She denies overuse of her hands. Exam shows normal appearing joints with no warmth, tenderness or deformity. We will get x- rays, CRP and Anti-CCP. For now, I asked her to avoid nonsteroidals because of the borderline blood pressure and trouble with swelling in her ankles. She can use Tylenol as needed which has not helped her that much. She does have tramadol on hand at home from prior knee problems, and this does help. We will be in touch with her about the results of the investigations, and consider other interventions or referral as needed. Diastolic dysfunction 08/03/2019 Overview (05/04/2021): Echo at [facility]: Normal left ventricular systolic function. No focal wall motion abnormalities. Normal left ventricular size. Impaired diastolic relaxation Grade I. Ejection fraction is measured at 66 %. There is mild enlargement of left atrium. Normal appearance of the mitral valve. Trivial regurgitation of the mitral valve. Follow up echo on 04/11/2021: Normal left ventricular systolic function. No focal wall motion abnormalities. Normal left ventricular size. Normal left ventricular wall thickness. Paradoxical septal motion consistent with IVCD or bundle branch block. Impaired diastolic relaxation Grade I. Ejection fraction is measured at 56 %. Normal appearance of the tricuspid valve. Normal right ventricular systolic pressure. Estimated peak RVSP is 31 mmHg. Trivial regurgitation in the tricuspid valve. Normal sinus rhythm. Nuclear stress test, 04/24/2021: Global left ventricular function is normal. Left ventricular ejection fraction is 60 %. Myocardial perfusion imaging is normal. Sinus rhythm , low QRS voltage. No diagnostic ST changes. Assessment & Plan (10/16/2024 11:33 AM TRUCKING SUPERVISOR): Chronic, present for 4-5 years, noted on echocardiogram. She denies chest pain or pressure or even dyspnea on exertion, but has a breathless sensation. She feels like she can not take a deep breath. Lungs are clear and oxygen saturation is normal. The cause of her symptom is unclear. We will monitor clinically. We suggested a follow-up with cardiology if symptoms persist. She also notes light-headedness when she gets up too fast from a seated position and also when she ambulates. Blood pressure is running on the low side of normal, possibly a side effect of minoxidil prescribed by her chief petroleum engineer for thinning of her hair. We recommended stopping minoxidil and following up early here or in cardiology if symptoms persist. Assessment & Plan (09/24/2021 7:35 PM TRUCKING SUPERVISOR): She takes furosemide to control swelling in her feet. The dose was reduced to once a day. Continue same. Assessment & Plan (09/11/2019 12:31 PM TRUCKING SUPERVISOR): She is seeing a diesel pile hammer operator at [facility], Dr. Rubin. Medications were adjusted recently to hopefully help her deal with some diastolic dysfunction which is the likely cause of her dyspnea with exertion. Obesity and deconditioning are probably contributing as well. Exam today shows clear lungs and no swelling in her legs. Abdominal pain 06/22/2019 Overview (03/19/2022): Added automatically from request for surgery [id number], normal colonoscopy 08/14/2019, Dakota Marroquin MD, [place]. Hypertension associated with type 2 diabetes venus raman 06/12/2019 Assessment & Plan (04/15/2025 2:50 PM CDT): See [facility] HPI/AP. Assessment & Plan (10/16/2024 11:34 AM TRUCKING SUPERVISOR): Chronic, present for 5-6 years, and actually blood pressure is running on the low side of normal lately, possibly a side effect of minoxidil therapy of hair loss. We recommended stopping minoxidil for now and following up early as needed. Assessment & Plan (04/12/2024 11:00 AM CDT): Chronic, controlled with lifestyle modification. Farxiga may also be contributing to lower blood pressure.. She reports having some orthostatic lightheadedness but tries to stay well hydrated. We also recommended taking her time when she changes position from lying or sitting to standing. Assessment & Plan (10/13/2023 1:01 PM TRUCKING SUPERVISOR): Blood pressure is in a good range on current non pharmacologic therapy, that is keeping her weight under control and staying active. Assessment & Plan (04/18/2023 4:11 PM CDT): Blood pressure is in a good range on non pharmacologic therapy, although weight loss promoted by Ozempic and Farxiga may be helping to keep blood pressure down. She denies chest pain or pressure. Assessment & Plan (10/07/2022 2:59 PM TRUCKING SUPERVISOR): Blood pressure is in a good range. She denies chest pain or pressure, just belching and heartburn which is a decades-long symptoms. Creatinine is mildly elevated lately, and follow up labs are planned by cardiology. Lab Results Component Value Date GLUCOSE 114 09/16/2022 CALCIUM 9.8 09/16/2022 SODIUM 140 09/16/2022 POTASSIUM 4.3 09/16/2022 CO2 26 09/16/2022 CHLORIDE 100 09/16/2022 BUNSER 25 09/16/2022 CREATININE 1.18 (H) 09/16/2022 Assessment & Plan (03/23/2022 11:24 AM CDT): Blood pressure is in a good range on nonpharmacologic therapy. She denies chest pain or pressure. Assessment & Plan (09/12/2021 10:31 AM TRUCKING SUPERVISOR): Blood pressure is in a good range on current therapy. Labs are stable. Continue same, and follow-up in six months. Lab Results Component Value Date GLUCOSE 122 09/05/2021 CALCIUM 9.5 09/05/2021 SODIUM 142 09/05/2021 POTASSIUM 3.7 09/05/2021 CO2 27 09/05/2021 CHLORIDE 101 09/05/2021 BUNSER 18 09/05/2021 CREATININE 1.09 09/05/2021 Assessment & Plan (02/05/2021 2:38 PM CDT): Blood pressure is in a good range on current therapy. Continue same, and follow- up in six months. Assessment & Plan (09/28/2020 1:41 PM TRUCKING SUPERVISOR): Blood pressure is in a good range on current therapy. Continue same. Follow-up in six months. Assessment & Plan (03/06/2020 2:52 PM CDT): Blood pressure is in a good range on current therapy. She denies having any chest pain. There is no swelling in her legs. Continue same, and follow-up in six months. Assessment & Plan (01/25/2020 4:49 PM CDT): Blood pressure is somewhat borderline today. Previously, it has been well controlled on medications started last fall/winter by her diesel pile hammer operator, Dr. Rubin. I suspect the elevation may in part be due to use of nonsteroidals at home, specifically Aleve. I asked her to stop taking this medication and call Dr. Rubin about possible modification in her regimen, specifically stopping amlodipine because of ankle swelling, and starting a another agent to get her blood pressure back down into a better range. Pancreatic lesion 2019 Overview (06/18/2019): Incidentally noted lesion in tail pancreas on CT 05/05/19 for abdominal pain: Apparent 2.5 x 1.9 cm mass in the tail of the pancreas. This may represent focal fatty sparing of the tail the pancreas, andvintrapancreatic splenule, or, a pancreatic neoplasm. Recommend further evaluation with abdominal MRI with and without contrast. MRI on 05/17/19: The mass-like lesion in the pancreatic tail is favored to represent fatty sparing of normal pancreatic parenchyma, as it follows signal intensity of the rest of the pancreas on all sequences. Recommend comparison with prior examinations if available. Otherwise, a follow-up examinations in 6-12 months to document stability. Recommend follow up of the Incidental pancreatic tail lesion in 6-12 months with repeat abdominal MRI. Follow up CT on 06/01/19: Unchanged soft tissue tissue attenuation within the pancreatic tail which likely represents fatty sparing as previously demonstrated on the prior MRI examination. Assessment & Plan (09/23/2019 3:30 PM TRUCKING SUPERVISOR): As part of her workup for chronic abdominal symptoms, she was found to have an abnormality in the pancreas that is thought to be an area of fatty sparing as opposed to a neoplasm. It has been imaged 3 times over the past 4 months or so, and has been relatively stable. We discussed this again today, along with options for further workup. These include reimaging in 4 months, or upper endoscopic exam with ultrasound and possible biopsy. She will discuss these options with her ash handler, Dr. Marroquin, who she sees on September 15. Non-seasonal allergic rhinitis due to pollen 07/2019 Assessment & Plan (10/07/2022 3:01 PM TRUCKING SUPERVISOR): Continue Flonase. Assessment & Plan (01/25/2020 4:49 PM CDT): She needed a refill of Flonase which we sent in. Assessment & Plan (03/14/2019 4:10 PM CDT): Her allergies have flared up since moving to the [facility]. When she lived in [place], they were more or less year round, but here they seem to be related to the current fisher. She takes Sudafed which helps. She does not take oral antihistamines because they dry her out too much. I recommended a trial of nasal antihistamine spray with Astelin. She will give this a try. Restless legs 03/06/2019 Overview (09/08/2019): Entered at [facility]. Insomnia 03/06/2019 Pelvic somatic dysfunction 03/06/2019 Overview (09/08/2019): Entered by DADO OPERATOR, prior care, details lacking. Chronic diarrhea 10/03/2018 Overview (10/04/2022): History of overflow diarrhea. Current symptoms are different than in the past. Defogram 09/18/2022: Small anterior rectocele without recto-rectal intussusception. Assessment & Plan (10/13/2023 12:56 PM TRUCKING SUPERVISOR): She has a history of o verflow diarrhea , but mostly she is trouble with constipation. We will monitor clinically. Assessment & Plan (03/07/2019 9:39 AM CDT): In addition to constipation, she sometimes has diarrhea for which she takes Imodium as needed. These are longstanding symptoms. She plans to follow up with GI at [facility] in a couple of months for a second opinion. Assessment & Plan (12/11/2018 2:48 PM CDT): For the past 2-3 months, she has had watery stools up to 15 times per day. They vary in color. Her vital signs are normal and she does not appear toxic. Abdominal exam is benign. I suspect the quantity of stools is rather small. In the past, she says she has had o verflow diarrhea due to constipation. However these watery stools are different than what she has experienced in the past. She would like to see a ash handler, and I think this is certainly reasonable. In the meantime, we will check some stool studies as ordered. She has tried fiber and [id number] Imodium which usually has helped with her past bouts of diarrhea. She is not using constipation remedies such as Linzess because of the diarrhea. We will arrange for her to see a ash handler as soon as possible. Hyperlipidemia associated with type 2 diabetes christine zaidi 08/08/2018 Overview (09/05/2018): Intolerant of statins (muscle pain). Assessment & Plan (04/15/2025 2:50 PM CDT): See [facility] HPI/AP. Assessment & Plan (10/16/2024 11:34 AM TRUCKING SUPERVISOR): Chronic, present for 6-7 years, uncontrolled due to intolerance of statin medications. We ordered follow-up lipids to be done before her next visit in six months. Assessment & Plan (04/12/2024 10:59 AM CDT): Chronic, uncontrolled. She is trying to keep lipid levels down with diet due to intolerance of statin therapy. However her most recent study in January showed a moderate worsening. She attributes this to having ice cream the night before the test. We encouraged better attention to her diet. Lab Results Component Value Date CHOL 249 (H) 02/24/2024 CHOL 212 (H) 09/16/2022 CHOL 124 09/05/2021 POCCHOL 198 01/26/2024 POCCHOL 210 07/19/2019 Lab Results Component Value Date HDL 74 02/24/2024 HDL 57 09/16/2022 HDL 55 09/05/2021 POCHDL 67 01/26/2024 POCHDL 70 07/19/2019 Lab Results Component Value Date LDLCALC 130 (H) 09/16/2022 LDLCALC 54 09/05/2021 LDLCALC 51 09/10/2020 LDL 155 (H) 02/24/2024 LDL 145 (H) 08/08/2018 POCLDL 106 01/26/2024 POCLDL 108 07/19/2019 SCRLDL 55 04/01/2022 Lab Results Component Value Date TRIG 96 02/24/2024 TRIG 125 09/16/2022 TRIG 77 09/05/2021 POCTRIG 126 01/26/2024 POCTRIG 160 07/19/2019 Lab Results Component Value Date ALT 23 02/24/2024 AST 25 02/24/2024 ALKPHOS 63 02/24/2024 BILITOT 0.4 02/24/2024 Assessment & Plan (10/13/2023 1:01 PM TRUCKING SUPERVISOR): Statins cause muscle pain. She is trying to control things with her diet. She gets labs done at her tar and ammonia pump operator office, Dr. Flores. Fasting lipids will be due with her next blood draw. Assessment & Plan (04/08/2023 9:22 AM CDT): She is intolerant of statins. We will monitor lipids periodically to give her feedback on her diet. Lipids may have been done in Dr. Flores's office in February. We are requesting those results. Assessment & Plan (10/07/2022 2:58 PM TRUCKING SUPERVISOR): She is intolerant of statins. We will monitor lipids periodically to give her feedback on her diet. Lab Results Component Value Date CHOL 212 (H) 09/16/2022 CHOL 124 09/05/2021 CHOL 130 09/10/2020 POCCHOL 210 07/19/2019 Lab Results Component Value Date HDL 57 09/16/2022 HDL 55 09/05/2021 HDL 53 09/10/2020 POCHDL 70 07/19/2019 Lab Results Component Value Date LDLCALC 130 (H) 09/16/2022 LDLCALC 54 09/05/2021 LDLCALC 51 09/10/2020 LDL 145 (H) 08/08/2018 POCLDL 108 07/19/2019 SCRLDL 55 04/01/2022 Lab Results Component Value Date TRIG 125 09/16/2022 TRIG 77 09/05/2021 TRIG 129 09/10/2020 POCTRIG 160 07/19/2019 Lab Results Component Value Date POCCHDLR 3.0 07/19/2019 Lab Results Component Value Date POCNONHDL 140 07/19/2019 Lab Results Component Value Date POCCHLPL 210 07/19/2019 Lab Results Component Value Date ALT 16 09/16/2022 AST 27 09/16/2022 ALKPHOS 93 09/16/2022 BILITOT 0.2 09/16/2022 Assessment & Plan (03/23/2022 11:23 AM CDT): She stopped taking statins and feels better with respect to muscle pains. She will discuss alternative therapy with her diesel pile hammer operator, Dr. Rubin. Assessment & Plan (09/12/2021 10:33 AM TRUCKING SUPERVISOR): Her lipid profile actually looks pretty favorable. She is tolerating a standard dose of generic Lipitor, even though statins have bothered her somewhat in the past. It was prescribed by her diesel pile hammer operator, Dr. Rubin. Continue same. Lab Results Component Value Date CHOL 124 09/05/2021 CHOL 130 09/10/2020 CHOL 117 09/06/2019 POCCHOL 210 07/19/2019 Lab Results Component Value Date HDL 55 09/05/2021 HDL 53 09/10/2020 HDL 57 09/06/2019 POCHDL 70 07/19/2019 Lab Results Component Value Date LDLCALC 54 09/05/2021 LDLCALC 51 09/10/2020 LDLCALC 44 09/06/2019 LDL 145 (H) 08/08/2018 POCLDL 108 07/19/2019 Lab Results Component Value Date TRIG 77 09/05/2021 TRIG 129 09/10/2020 TRIG 82 09/06/2019 POCTRIG 160 07/19/2019 Lab Results Component Value Date POCCHDLR 3.0 07/19/2019 Lab Results Component Value Date POCNONHDL 140 07/19/2019 Lab Results Component Value Date POCCHLPL 210 07/19/2019 Lab Results Component Value Date ALT 16 09/05/2021 AST 23 09/05/2021 ALKPHOS 89 09/05/2021 BILITOT 0.3 09/05/2021 Assessment & Plan (02/05/2021 2:38 PM CDT): She is tolerating generic Lipitor. Continue same and follow-up in six months with labs. Assessment & Plan (09/25/2020 3:52 PM TRUCKING SUPERVISOR): She is on generic Lipitor, tolerating well. Cholesterol profile looks pretty favorable. Continue same. Assessment & Plan (03/06/2020 2:51 PM CDT): She is intolerant of statins due to muscle pain. We will check follow-up lipids before her next visit to see how she is doing with dietary control. Assessment & Plan (09/23/2019 3:29 PM TRUCKING SUPERVISOR): She has been somewhat intolerant of statins in the past which caused muscle pain. However, generic Crestor was resumed by her diesel pile hammer operator, Dr. Rubin, recently. She does note migratory pains that come and go in her limbs, which might be a recurrence of statin side effects, or could be due to other causes such as mononeuritis multiplex from diabetes. We discussed this today. For now, she will continue on the rosuvastatin while we monitor this situation clinically. Assessment & Plan (12/11/2018 2:51 PM CDT): She is unfortunately intolerant of statins which cause muscle cramps. We will add this to her list of allergies. We will monitor lipids periodically to give her feedback on her diet. Assessment & Plan (09/05/2018 11:59 AM TRUCKING SUPERVISOR): We checked a cholesterol panel and it shows mild to moderate elevations of total and LDL cholesterol, but HDL cholesterol is quite high which gives her some protection. She was previously advised to take a statin drug, but it caused muscle aches and pains, so she stopped it. She will work on her diet which normally keeps her total cholesterol below 200. Abdominal wall pain 03/27/2017 Overview (01/25/2020): Intermittent pain in left upper abdominal wall associated with a knot, present for a few years. The knot seems to go into a spasm if she doesn't have a bowel movement. It's about the size of a Mandarin. Assessment & Plan (02/03/2020 12:23 PM CDT): For the past several years, she has had an intermittent pain in the left upper abdomen associated with a k not that seems to swell or go into a spasm if she does not have regular bowel movements. She says the area of swelling is the size of a Mandarin orange. The patient had extensive recent GI evaluation including imaging and colonoscopy with no major abnormalities found. Certainly, there was no hernia detected in this area. There was no mass in the abdominal wall reported. On exam today, there is no significant abnormality noted. The cause of the patient's symptoms is unclear. I speculate that she might have a little bit of localized panniculitis causing some abdominal wall tenderness. She might also have some intermittent local colonic spasm. At this time, no additional workup appears to be needed. However, if symptoms worsen, we will address this issue again or refer her to Dr. Marroquin, her ash handler. Obesity (BMI 30-39.9) 03/27/2016 Assessment & Plan (04/08/2023 9:23 AM CDT): She is experiencing a slow but steady weight loss on Ozempic, and is no longer obese. She will keep her follow ups with her tar and ammonia pump operator, Dr. Flores. Assessment & Plan (10/18/2022 6:05 PM TRUCKING SUPERVISOR): We encouraged attention to her diet and little bit of weight loss. Assessment & Plan (03/23/2022 11:24 AM CDT): Her weight is stable. We encouraged attention to her diet, and hopefully some weight loss. Assessment & Plan (09/12/2021 10:31 AM TRUCKING SUPERVISOR): She has lost about 15 lb on her diet and Ozempic. I congratulated her. She will continue her efforts. Type 2 diabetes mellitus wit h diabetic polyneuropathy, without long-term current use of insulin 10/28/2011 Overview (03/05/2020): Vascular/history of stroke. Assessment & Plan (04/15/2025 2:51 PM CDT): See [facility] HPI/AP. Assessment & Plan (10/16/2024 11:37 AM TRUCKING SUPERVISOR): Chronic, present for more than 10 years, controlled on semaglutide 2 mg every seven days. Diabetes is comanaged with Dr. Flores. HGB A1c is actually now in the normal range. Weight is stable. Continue current therapy and follow-up in six months. Assessment & Plan (04/12/2024 11:03 AM CDT): Chronic, controlled with diet and Ozempic. She is also on Farxiga. Continue same and keep followups with endocrinology. Lab Results Component Value Date HGBA1C 5.2 02/24/2024 HGBA1C 5.4 09/16/2022 HGBA1C 5.8 (H) 03/16/2022 Lab Results Component Value Date MICROALBUR 0.3 02/24/2024 LDLCALC 130 (H) 09/16/2022 CREATININE 1.33 (H) 02/24/2024 Assessment & Plan (10/13/2023 1:06 PM TRUCKING SUPERVISOR): Blood sugars seem pretty well controlled with her diet. Continue same, and follow-up in six months. Assessment & Plan (04/08/2023 9:26 AM CDT): She is on Farxiga and Ozempic. The last hemoglobin A1c in her tar and ammonia pump operator's office was 5.1% representing excellent control. We will see her back in six months. Assessment & Plan (10/18/2022 6:09 PM TRUCKING SUPERVISOR): Diabetes is well controlled on diet and current medication (Ozempic and Farxiga, but the latter is more for her BP, heart and kidneys per patient). Assessment & Plan (03/23/2022 11:27 AM CDT): Her diabetes is well controlled. She is on Ozempic and follows up with Dr. Flores periodically. Lab Results Component Value Date HGBA1C 5.8 (H) 03/16/2022 HGBA1C 5.8 (H) 09/05/2021 HGBA1C 5.7 (H) 09/10/2020 Lab Results Component Value Date MICROALBUR 0.2 08/08/2018 LDLCALC 54 09/05/2021 CREATININE 1.09 09/05/2021 Assessment & Plan (02/23/2022 1:05 PM CDT): Diabetic eye exam, 02/10/2022, [facility]. Assessment & Plan (09/12/2021 10:30 AM TRUCKING SUPERVISOR): Blood sugars are generally in the low 100 mg/dL range. HbA1c is in a good range. She is now just on Ozempic once a week and tolerating it well. Continue same. Follow-up in six months. Lab Results Component Value Date HGBA1C 5.8 (H) 09/05/2021 Assessment & Plan (02/05/2021 2:35 PM CDT): Diabetes seems to be under good control. Continue current therapy. Check follow- up labs before her next visit in six months. Lab Results Component Value Date HGBA1C 5.7 (H) 09/10/2020 Assessment & Plan (09/25/2020 3:51 PM TRUCKING SUPERVISOR): Blood sugars vary from 100-115 mg/dL. Hemoglobin A1c is in a very good range. She is on metformin twice a day. Continue same. Lab Results Component Value Date HGBA1C 5.7 (H) 09/10/2020 Assessment & Plan (03/06/2020 2:53 PM CDT): Blood sugars are in a good range, typically low 100 mg/dL this entity. Hemoglobin A1c is also in a good range. Continue metformin and diet. She just had her eye exam yesterday. We will get a copy of that report. Lab Results Component Value Date HGBA1C 5.7 (H) 02/26/2020 Assessment & Plan (09/11/2019 12:20 PM TRUCKING SUPERVISOR): Hemoglobin A1c is in a good range, but she has a trace of albumin her urine. We will add lisinopril to her regimen to hopefully provide some kidney protection. Assessment & Plan (03/07/2019 9:44 AM CDT): Blood sugars vary from 100-120 mg%. This indicates good control of diabetes on her current metformin medication. Continue same and check follow-up labs before her next visit in about six months. Assessment & Plan (12/05/2018 9:45 AM CDT): Blood sugars at home run between 100 mg/dL and 110 mg/dL. These are in a very good range on her current dose of metformin. Metformin can be a cause of diarrhea, but she tried going off of it for awhile and it did not make a difference. Continue current therapy. Assessment & Plan (09/05/2018 11:59 AM TRUCKING SUPERVISOR): Blood sugars usually run between 90 and 110 mg/dL, but she had a bit of a scare recently when it went up to 190 mg/dL. This was after a pasta dinner with her . She has also been drinking some eggnog. She will work on her diet again to get these under control. However, hemoglobin A1c is actually normal at 5.2, so we can continue current therapy for now. Assessment & Plan (08/04/2018 1:56 PM TRUCKING SUPERVISOR): She has had type 2 diabetes for the past six years or so. No known complications. She takes metformin. We will check some labs and monitor closely. Presbycusis of both ears 03/27/2009 Assessment & Plan (10/16/2024 11:36 AM TRUCKING SUPERVISOR): Chronic but newly reported symptom, present for more than 15 years. She wore hearing aids for awhile but stopped using them for unclear reasons. She feels that her hearing is getting worse so we referred her to audiology for a formal evaluation. Chronic constipation 07/28/2008 Overview (10/04/2022): Defogram 09/18/2022: Small anterior rectocele without recto-rectal intussusception. Assessment & Plan (10/13/2023 12:56 PM TRUCKING SUPERVISOR): She takes Linzess to keep her bowels moving. It is prescribed by her GI physician, Dr. Marroquin. On a recent cruise, she actually had traveler's diarrhea and was quarantine for 24 hours but things are back to normal for her now. Assessment & Plan (10/07/2022 2:55 PM TRUCKING SUPERVISOR): She is seeing GI for constipation and other GI issues. Assessment & Plan (01/15/2022 3:40 PM CDT): Likely secondary to IBS-C with associated pelvic floor dysfunction (as per recent anal manometry). Has tried pelvic floor therapy twice without any significant benefit. Previously was on linzess and motegrity, which did not help. Current regimen is amitiza BID and miralax 17gm every other day. TSH recently normal. - We will obtain hydrogen breath test to evaluate for SIBO given concomitant B12 deficiency - We discussed at length that adjusting her psychiatric medications is likely not the correct next step, particularly given that this regimen appears to be working for her, and it is unclear to what degree duloxetine is contributing to her constipation (we suspect very minimal if any contribution) - Recommended that she switch to the large bottle of miralax rather than packets, so she can adjust the dose appropriately. Recommended that she start with half a capful per day. - Repeat colonoscopy at some point (will hold off for now given that she is not currently feeling ready for it). Assessment & Plan (02/05/2021 2:39 PM CDT): Gera stopped working, so now she is on Amitiza. She will keep her follow ups with Dr. Marroquin. Assessment & Plan (03/14/2019 4:08 PM CDT): She has alternating constipation and diarrhea. She has seen GI at [facility] and had a fairly extensive workup including a normal colonoscopy in December. She has decided to see a GI doctor at [facility]. This will take place in April. In the meantime, she takes a fiber supplement to stay regular. Assessment & Plan (09/19/2018 6:11 AM TRUCKING SUPERVISOR): She plans to see a ash handler about her GI symptoms. Currently the referral and consultation are pending, but she will get us the information once it is available. She is probably due for a follow-up colonoscopy. I have no records of prior GI care at this time. Assessment & Plan (08/04/2018 1:54 PM TRUCKING SUPERVISOR): She has had chronic constipation for quite a while. She has had several colonoscopies. Her last one was in the spring of 2017, and they could not get past a kink in her bowel. Details are lacking because it was done in [facility] before her retired. We will refer to the ash handler of her choice, Dr. Real, for further evaluation. Mild intermittent asthma without complication Overview (09/05/2018): Uses a rescue inhaler as needed. Assessment & Plan (10/16/2024 11:35 AM TRUCKING SUPERVISOR): Chronic, present for 20 years or so, currently asymptomatic and not requiring bronchodilator therapy. We will monitor clinically. Assessment & Plan (10/13/2023 1:03 PM TRUCKING SUPERVISOR): She has not currently having any respiratory symptoms of concern such as wheezing or cough. She does not take any maintenance medication, nor does she even have a rescue inhaler at this time. We will monitor clinically. Assessment & Plan (10/07/2022 3:01 PM TRUCKING SUPERVISOR): She is not currently using an inhaler. Lungs are clear except for a few LLL crackles. Assessment & Plan (03/23/2022 11:24 AM CDT): She wanted albuterol off her list. She only uses it rarely and seasonally. Assessment & Plan (09/25/2020 3:52 PM TRUCKING SUPERVISOR): She is not requiring an inhaler. Lungs are clear and oxygen saturation is normal. We will monitor clinically. Assessment & Plan (03/06/2020 2:52 PM CDT): She has a rescue inhaler for use as needed. Lungs are clear and oxygen saturation is normal. Continue same. Assessment & Plan (09/11/2019 12:34 PM TRUCKING SUPERVISOR): She is doing pretty well with her asthma. No major new symptoms reported. Continue albuterol as needed. Assessment & Plan (03/07/2019 9:41 AM CDT): Lungs are clear. She has a rescue inhaler to use as needed. Continue same. Assessment & Plan (09/05/2018 11:58 AM TRUCKING SUPERVISOR): She did not mention this previously, but about 10 or 12 years ago, she developed adult onset asthma. She got it under control with several inhalers and eventually symptoms tapered off. Currently she only needs a rescue inhaler once in a while. She has an claims sorter, Dr. Cameron, at [facility] she plans to see regularly. Continue same. TOMAS (obstructive sleep apnea) 07/28/2006 Overview (08/04/2018): On CPAP Assessment & Plan (04/15/2025 2:50 PM CDT): See [facility] HPI/AP. Assessment & Plan (09/11/2019 12:34 PM TRUCKING SUPERVISOR): She is on CPAP, continue same. History of stroke 07/28/2000 Overview (08/04/2018): Strokes in 1999 and 2000. In 2004 started having TIAs. Was placed on Plavix. Assessment & Plan (08/21/2018 1:51 PM TRUCKING SUPERVISOR): She apparently has had some small strokes starting in 1999. She was not given aspirin immediately, but when she started having TIAs in 2004, they put her on Plavix. She has had no recurrence symptoms since then. Continue to monitor. Consider adding a cholesterol medicine if she can tolerate one. History of melanoma 02/25/1991 Overview (04/09/2019): In situ, resected from left angle of jaw in [place]. No radiation or other treatment needed. Referred to Dr. Mendosa for exam and follow up. Assessment & Plan (03/07/2019 9:41 AM CDT): She had a melanoma resected from the left angle of her jaw about 25 years ago. It was a superficial melanoma and did not require extensive additional surgery or radiation. She has not had a recent skin check, and she does have other concerns including some pigmented areas on her hands (dorsal surfaces) that she thinks have changed in size and shape lately. We will refer her to Dr. Mendosa for a thorough evaluation and management. Primary open angle glaucoma (POAG) of both eyes, moderate stage 07/28/1985 Overview (10/12/2023): Right eye worse than left. >>OVERVIEW FOR GLAUCOMA WRITTEN ON 10/12/2023 12:54 PM BY LYNN PERRY MD POAG, details in ophthalmology notes. Gastroesophageal reflux disease with esophagitis 07/28/1985 Overview (08/04/2018): Acid has scarred her esophagus. Has a gravely voice. Assessment & Plan (10/13/2023 12:58 PM TRUCKING SUPERVISOR): She recently noted some swallowing difficulty and discomfort in the right lower neck. She is currently scheduled for a follow-up EGD at the end of the month. Assessment & Plan (04/08/2023 9:21 AM CDT): Overall, her bowels are doing much better. She is not currently requiring anything for acid reflux on a regular basis. Assessment & Plan (10/07/2022 2:56 PM TRUCKING SUPERVISOR): Nexium is not controlling her symptoms. We will try Dexilant. She may be a candidate for a Gilda. She will discuss this with Dr. Marroquin if the Dexilant does not work. Assessment & Plan (09/12/2021 10:32 AM TRUCKING SUPERVISOR): She sees Dr. Marroquin. She is on generic Nexium. Continue same. Assessment & Plan (02/05/2021 2:39 PM CDT): She has a long history of acid reflux. She had a stricture that was dilated about 30 years ago. Recently she has had trouble swallowing again. She has a follow-up with her ash handler, Dr. Marroquin, in February. She will discuss additional workup with him. Assessment & Plan (09/25/2020 3:53 PM TRUCKING SUPERVISOR): She continues on Nexium which I believe she gets [id number]. Assessment & Plan (03/06/2020 2:51 PM CDT): She continues to have a number of chronic GI complaints, including acid reflux for which she takes Nexium. She sees Dr. Marroquin periodically. He plans a follow-up CT scan due to some left mid to upper abdominal discomfort associated with focal subjective swelling. He also ordered a calprotectin level due to a strong family history of inflammatory bowel disease. She will keep her follow ups with GI. Assessment & Plan (03/07/2019 9:40 AM CDT): She takes a proton pump inhibitor to help control symptoms. Her voice is somewhat gravelly, partly from allergies and probably partly from acid reflux. Continue current therapy. Assessment & Plan (12/05/2018 9:43 AM CDT): She is on a fairly high dose of as omeprazole to control symptoms. Sometimes proton pump inhibitors can be associated with diarrhea but she has been on this dose for awhile so it seems unlikely to be the cause. She also tried going off of a ll my meds but there was no benefit. We will see what Gastroenterology has to say. Assessment & Plan (09/05/2018 11:57 AM TRUCKING SUPERVISOR): She continues to have some difficulty with her voice being intermittently hoarse. Her GI symptoms are controlled on current therapy, but she does plan to follow up with a ash handler and may need a follow-up EGD as well as a colonoscopy. Assessment & Plan (08/04/2018 1:54 PM TRUCKING SUPERVISOR): She has a long history of acid reflux. She has had upper endoscopies apparently has esophagitis. She takes a relatively high dose of a proton pump inhibitor. Continue same and follow-up with Dr. Real. Adult hypothyroidism 07/28/1985 Overview (08/04/2018): History of Grave's thyroiditis, treated with radioactive iodine, then became hypothyroid. Has been on replacement since. Assessment & Plan (04/15/2025 2:50 PM CDT): See [facility] HPI/AP. Assessment & Plan (10/16/2024 11:30 AM TRUCKING SUPERVISOR): Chronic, controlled on levothyroxine 88 mcg daily monitored by her tar and ammonia pump operator, Dr. Flores. Continue same and follow-up in six months. Assessment & Plan (04/18/2024 9:39 AM CDT): Chronic, subjectively poor control. She sees Dr. Flores for this condition. The dose of levothyroxine was lowered to 88 mcg daily back in September. She is experiencing more fatigue than she is accustomed to and plans to discuss this with Dr. Flores at her next visit. We asked her to forward labs for us to review. Assessment & Plan (04/08/2023 9:19 AM CDT): Her dose of levothyroxine was adjusted recently by her tar and ammonia pump operator, Dr. Flores. We will get recent labs done in February in his office. Assessment & Plan (10/07/2022 2:54 PM TRUCKING SUPERVISOR): She is on replacement therapy and follows up with endocrinology. Continue same. Lab Results Component Value Date TSH 0.62 09/05/2021 Assessment & Plan (03/23/2022 11:23 AM CDT): She is followed by endocrinology. She is on replacement therapy. Continue same. Lab Results Component Value Date TSH 0.62 09/05/2021 Assessment & Plan (09/12/2021 10:34 AM TRUCKING SUPERVISOR): TSH and free T4 are in a normal range. Continue current replacement. Follow-up in six months. Lab Results Component Value Date TSH 0.62 09/05/2021 Assessment & Plan (09/25/2020 3:53 PM TRUCKING SUPERVISOR): She has had more fatigue lately. She would like to check her thyroids again. TSH was normal back in February. We will get back with her about the updated results. Assessment & Plan (09/23/2019 3:27 PM TRUCKING SUPERVISOR): TSH is low, possibly indicating a replacement dose that is too high. The patient says she has been on a stable dose of replacement for many years, usually between 125-150 mcg daily. We will recheck with free T4, free T3 and TSH, and adjust the dose as needed. Lab Results Component Value Date TSH 0.16 (L) 09/06/2019 Assessment & Plan (03/07/2019 9:37 AM CDT): TSH is in a normal range. Continue current replacement therapy and follow up in six months. Assessment & Plan (12/05/2018 9:41 AM CDT): We have been trying to adjust her thyroid replacement dose, but the most recent TSH indicate that her current dose is too high. It may be partly responsible for her current problems with loose stools/diarrhea. We will lower back to her previous dose and check a TSH in about three months. Assessment & Plan (09/05/2018 11:56 AM TRUCKING SUPERVISOR): TSH was slightly elevated. She used to be on levothyroxine 150 mcg a day, but the dose was lowered by her former PCP to 125 mcg a day. She does feel a bit fatigued on the lower dose. We will increase it to 137 mcg a day and check a follow-up TSH before her next visit in about three months. Assessment & Plan (08/04/2018 1:53 PM TRUCKING SUPERVISOR): About 30 years ago, she had Graves disease treated with radioactive iodine. She then became hypothyroid and has been on replacement therapy since. Continue same. We will check some labs and have her follow up in a month. History of Graves' disease 02/25/1985 Overview (03/07/2019): Treated with radioactive iodine, now hypothyroid. Neuropathy 03/27/1980 Overview (02/05/2021): For past 40 years, burning discomfort in feet and tingling in fingers. Might be getting worse. Assessment & Plan (02/16/2021 2:56 PM CDT): She has had neuropathic symptoms for the past 40 years. They seem to be getting worse. They consist of burning discomfort in her feet and tingling in her fingers. She had an EMG about six months ago which showed a sural neuropathy. She also had mild left carpal tunnel abnormalities. With a neuropathy of this duration, it is unlikely that she has a severe degenerative condition causing her symptoms. She has had fairly extensive evaluation in the past, but we will review available studies and consider other investigations since she thinks symptoms are getting worse. Of course this could be a diabetic neuropathy, but symptom onset predated her diagnosis of diabetes. We will arrange for early follow-up or referral as needed. Persistent mood disorder 07/28/1975 Overview (08/04/2018): Several episodes of severe depression, currently takes escitalopram. Assessment & Plan (10/16/2024 11:35 AM TRUCKING SUPERVISOR): Chronic, present for decades, currently treated with bupropion XL 300 mg daily, vilazodone 20 mg daily, and lorazepam 0.5 mg daily as needed. She sees Paul Rodriguez for mental health care. Continue same. Assessment & Plan (04/18/2024 9:41 AM CDT): Chronic, fair control. She is feeling irritable today but says in general her mood is good on current doses of Wellbutrin XL 300 mg daily, and Viibryd 20 mg daily which she gets from her mental health provider, EMMETT Higgins. Assessment & Plan (10/13/2023 1:04 PM TRUCKING SUPERVISOR): Her mood seems quite positive on current therapy consisting of Wellbutrin XL 300 mg daily and Viibryd 20 mg daily prescribed by Paul CHRISTINE. Continue same. Assessment & Plan (04/08/2023 9:23 AM CDT): She sees Paul Rodriguez, ANP, and a license clinical social director. She is doing well on vilazodone. Continue same. Assessment & Plan (10/07/2022 3:02 PM TRUCKING SUPERVISOR): She sees Frank Rodriguez, also a DRUM REEL CUTTER. Mood is fair. She would like to get off Lamicatal because she does not think she is bipolar. She will follow up with mental health for all of this. Assessment & Plan (03/23/2022 11:25 AM CDT): Her psychiatric nurse practitioner recommended tapering Cymbalta and starting Lamictal, but after she read about the possible side effects of Lamictal, she never filled the prescription. She stayed on her previous dose of Cymbalta 60 mg daily. She will follow-up with mental health for her refills. Assessment & Plan (02/05/2021 2:36 PM CDT): She has been seeing Dr. Marroquin. She complained of still feeling depressed, so some changes were made to her medications. Zoloft was added but it made her much too sedated so amitriptyline was discontinued. She is less sedated but is not sleeping very well. Sometimes she takes 4 hour naps in the afternoon to catch up, then has trouble sleeping at night. She has a visit with Dr. Marroquin later this month and will discuss all of her mood issues and medications with him. Assessment & Plan (09/25/2020 3:51 PM TRUCKING SUPERVISOR): She sees Dr. Marroquin. She is on Cymbalta and was started on amitriptyline at bedtime. Continue same. Mood does seem flat, but it is her baseline. Assessment & Plan (09/11/2019 12:43 PM TRUCKING SUPERVISOR): She sees Dr. Marroquin. Medications have been recently adjusted in part to deal with her irritable bowel type symptoms. She seems to be fairly cheerful in the office today. We will continue to monitor and provide supportive care. Assessment & Plan (03/07/2019 9:43 AM CDT): She says her mood is pretty good. She seeing Dr. Marroquin and also a counselor. Duloxetine was stopped, but she continues on Lexapro. Continue same. Assessment & Plan (12/05/2018 9:44 AM CDT): She is on duloxetine and escitalopram. Mood is mildly dysphoric, otherwise she seems to be doing well. Continue same. Assessment & Plan (08/04/2018 1:56 PM TRUCKING SUPERVISOR): She has a long history of depressed mood starting in the 1970s. She has had at least three episodes of severe exacerbation. She has tried intermittently to stop her antidepressant medications, and does okay for awhile but then her depression relapses. She is currently on escitalopram and seems to be doing well but we will refer to psychiatry for assistance in management per her request. GUY (dyspnea on exertion) Overview (09/10/2019): Attributed to mild diastolic dysfunction, deconditioning. Hereditary and idiopathic neuropathy Overview (09/24/2020): Details lacking. Resolved Problems Problem Noted Date Diagnosed Date Resolved Date Acute sinusitis 11/12/2020 11/12/2020 Overview (11/12/2020): [facility], details lacking. Acute otitis media, right 11/09/2020 Overview (02/04/2021): Phone diagnosis, see notes. Strain of left Achilles tendon 03/27/2020 02/05/2021 Overview (02/05/2021): Was in a cast for a while, is better now. Cough 12/19/2019 09/06/2021 Overview (03/05/2020): Details lacking. Influenza-like illness 12/11/201901/21 Overview (01/22/2020): See phone messages, resolved. Constipation 06/22/2019 02/04/2021 Overview (09/08/2019): Added automatically from request for surgery [id number], normal colonoscopy 08/14/19, [place]. Prolonged posttraumatic stress disorder 03/15/2019 09/08/2019 Overview (09/08/2019): Entered at [facility] details lacking -> Mood disorder. Mixed hyperlipidemia 03/06/2019 019 Overview (08/21/2019): See lipid panels and office notes Benign essential hypertension 03/06/2019 03/06/2019 Overview (03/06/2019): Apparently in remission. Major depressive disorder, r ecurrent episode, moderate 09/06/2018 03/06/2019 Overview (03/06/2019): Detail lacking, on meds. Acute left-sided low back pa in without sciatica 07/14/2018 02/04/2021 Overview (02/04/2021): Three weeks of constant mid to lower back pain to left of spine, constant, 5/5 severity. No radiation. No recent falls or injuries. Has had problems with back in the past including sciatica. See office notes. Assessment & Plan (08/04/2018 1:51 PM TRUCKING SUPERVISOR): She has had about three weeks of moderate constant mid to lower back pain on the left side of her spine. There is no radiation of the pain. She has had no recent falls or injuries. She has had some problems with back pain and sciatica in the past, but the current pain seems a little different. She is worried about her kidneys, but there is no fever or hematuria or dysuria. She has chronic constipation and uses Linzess. She wonders if it is related to that. All of these are considerations. Exam is unremarkable with a mildly positive straight leg raise in the seated position, but otherwise no significant findings. Strength and reflexes in the legs are normal. She will try some Aleve and do some stretching exercises. Follow-up in one month or sooner as needed. Immunizations Immunization Administration Dates Next Due COVID-19 mRNA ([employer]) 0.3 m L (30 mcg) vaccine (12 years and up) 07/02/2023 Influenza, Quadrivalent, Hig h Dose, Preservative Free, Intrr 07/02/2023,09/25/2020 Influenza, Quadrivalent, Spl it, Preservative Free, Intramuscular 09/12/2021 Influenza, Split 08/14/2014 Influenza, Trivalent, Adjuva nted, Intramuscular 08/03/2019,06/27/2018 Influenza, Trivalent, High D ose, Split, Preservative Free, Intramuscular 06/12/2024,06/30/2018 Influenza, Unspecified 07/02/2023,2022,08/07/2022,08/03 Pfizer SARS-CoV-2 Monovalent Vaccination (12+ Yrs) PURPLE 06/26/2021,12/12/2020,11/19/2020 Pneumococcal Conjugate PCV 13 06/30/2018 Pneumococcal Conjugate Pcv20 07/08/2023 Pneumococcal Polysaccharide PPV23 08/03/2019 RSV Vaccine, Pref, Recombina nt, Subunit, Adjuvanted, PF, IM (Arexvy) 07/08/2023 Tdap 11/25/2013 ZOSTER LIVE 03/08/2013 ZOSTER Recombinant 04/25/2019,02/22/2019 Social History Tobacco Use Types Packs/Day Years Used Date Smoking Tobacco: Never Smokeless Tobacco: Never Tobacco Cessation:Counseling Given: Not Answered Alcohol Use Standard Drinks/Week Comments Yes 1 [...] on file Legal Sex Female 8:34 AM TRUCKING SUPERVISOR Gender Identity Female 12/01/2021 9:28 PM TRUCKING SUPERVISOR Sexual Orientation Straight 10/31/2020 6: 30 PM TRUCKING SUPERVISOR Occupation Industry Job Start Date Job End Date retired Not on file Not on file Not on file Last Filed Vital Signs Vital Sign Reading Time Taken Comments Blood Pressure 104/62 04/16/2025 11:24 AM CDT Pulse 68 04/16/2025 11:24 AM CDT Temperature 36.7 C (98 F) 04/16/2025 11:24 AM CDT Respiratory Rate 16 04/16/2025 11:24 AM CDT Oxygen Saturation 98% 04/16/2025 11:24 AM CDT Inhaled Oxygen Concentration - - Weight 75.6 kg (166 lb 9.6 oz) 04/16/2025 11:24 AM CDT Height 162.6 cm (5' 4.02) 04/16/2025 11:24 AM C DT Body Mass Index 28.58 04/16/2025 11:24 AM CDT Plan of Treatment Not on file Procedures Procedure Name Priority Date/Time Associated Diagnosis Comments EGFR Routine 04/09/2025 11:59 AM CDT Medicare annual wellness visit, subsequent Type 2 diabetes mellitus with diabetic polyneuropathy, without long-term current use of insulin (HCC) Hypertension associated with type 2 diabetes mellitus (HCC) THYROID FUNCTION CASCADE Routine 04/09/2025 11:59 AM CDT Adult hypothyroidism LIPID PANEL Routine 04/09/2025 11:59 AM CDT Medicare annual wellness visit, subsequent Type 2 diabetes mellitus with diabetic polyneuropathy, without long-term current use of insulin (HCC) Hyperlipidemia associated with type 2 diabetes mellitus (HCC) ALBUMIN CREATININE RATIO, URINE Routine 04/09/2025 11:59 AM CDT Medicare annual wellness visit, subsequent Type 2 diabetes mellitus with diabetic polyneuropathy, without long-term current use of insulin (HCC) COMPREHENSIVE METABOLIC PANEL Routine 04/09/2025 11:59 AM CDT Medicare annual wellness visit, subsequent Type 2 diabetes mellitus with diabetic polyneuropathy, without long-term current use of insulin (HCC) Hypertension associated with type 2 diabetes mellitus (HCC) HEMOGLOBIN A1C Routine 04/09/2025 11:59 AM CDT Medicare annual wellness visit, subsequent Type 2 diabetes mellitus with diabetic polyneuropathy, without long-term current use of insulin (HCC) POCT LIPID PANEL Routine 01/31/2025 9:43 AM CDT Hypertension associated with type 2 diabetes mellitus (HCC) SCREENING MAMMOGRAM BILATERAL W YAZAN Schedule Routine, Read Routine (OP Routine) 11/01/2024 10:00 AM TRUCKING SUPERVISOR Breast cancer screening by mammogram COLONOSCOPY 10/26/2023 8:35 AM TRUCKING SUPERVISOR DIABETES EYE EXAM Routine 02/11/2023 DEXA SCAN Routine 01/02/2022 HEPATITIS C ANTIBODY Routine 09/11/2019 12:25 PM TRUCKING SUPERVISOR Encounter for hepatitis C screening test for low risk patient from Last 3 Months or Most Recently Relevant to Health Maintenance Results * (ABNORMAL) eGFR (04/09/2025 11:59 AM CDT) eGFR 55(L) >=60 mL/min/1. 73 m2 Comment: Interpretive Data Reference Interval Normal >/= 90 mL/min/1.73m2 Mildly decreased* 60 - 89 mL/min/1.73m2 Mildly to moderately decreased 45 - 59 mL/min/1.73m2 Moderately to severely decreased 30 - 44 mL/min/1.73m2 Severely decreased 15 - 29 mL/min/1.73m2 Kidney Failure < 15 mL/min/1.73m2 *Relative to young adult level Estimated glomerular filtration rate is determined by the 2020 CKD-EPI equation recommended by the National Kidney Foundation (A Unifying Approach to GFR Estimation: Recommendations of the NKF-ASK Task Force on Reassessing the Inclusion of Race in Diagnosing Kidney Disease, JASN 2020). The CKD-EPI equation should not be used for patients with unstable renal function and has not been validated in children and those over 70. Current interpretive data was last reviewed 2021. Testing performed by: [address] [address] Blood 04/09/2025 11:5 9 AM CDT 04/09/2025 6:06 PM CDT us Lynn Perry MD LAB BLOOD ORDERABLES Final Re sult Performing Organization Address [facility] Co de Phone Number [place] [phone] [facility] Department [place] [employer] [place] [address] * Thyroid Function [place] (04/09/2025 11:59 AM CDT) TSH 4.12 0.30 - 4.20 mcIUnit/mL Comment:Testing performed by : [address] [address] Blood 04/09/2025 11:5 9 AM CDT 04/09/2025 5:38 PM CDT us Lynn Perry MD LAB BLOOD ORDERABLES Final Re sult Performing Organization Address [facility] Co de Phone Number [place] [phone] [facility] Department [place] [employer] [place] [address] * Albumin Creatinine Ratio, Urine (04/09/2025 11:59 AM CDT) Albumin Ur <12.0 mg/L Comment: Interpretive Data No reference range established. Current interpretive data was last revised 2019. Testing performed by: [address] [address] Creatinine Ur 69.1 mg/dL ERIC MURPHY Comment: Interpretive Data No reference range established. Current interpretive data was last revised 2019. Testing performed by: [address] [address] Albumin Creatinine Ratio, Ur <17 1 - 29 mg/g ERIC Comment:Testing performed by : [address] [address] Urine 04/09/2025 11:5 9 AM CDT 04/09/2025 5:37 PM CDT Lynn Perry MD LAB URINE ORDERABLES Final Re sult Performing Organization Address [facility] Co de Phone Number ERIC [phone] [facility] [place] [address] * Hemoglobin A1c (04/09/2025 11:59 AM CDT) Hgb A1C 5.5 4.0 - 5.6 % Comment:Testing performed by : [address] [address] Estimated Average Glucose 111 mg/dL ERIC Comment: The ADA recommends reporting an estimated Average Glucose (eAG) with all Hemoglobin A1c results using the equation derived from a study of 507 normal and diabetic adults. Minority populations were underrepresented and children were not included. (Diabetes Care 31:4220-9965, 2008). The eAG is not equivalent to a fasting glucose. Testing performed by: [address] [address] Blood 04/09/2025 11:5 9 AM CDT 04/09/2025 5:38 PM CDT Lynn Perry MD LAB BLOOD ORDERABLES Final Re sult Performing Organization Address City/[facility]/ZIP Co de Phone Number ERIC [address] [facility] [place] [place] [address] * (ABNORMAL) Lipid panel (04/09/2025 11:59 AM CDT) Cholesterol 214(H) 30 - 199 mg/dL Comment: Interpretive Data Ages < or = 19 years Acceptable: <170 mg/dL Borderline high: 170-199 mg/dL High: >or= 200 mg/dL Ages > or = 20 years Desirable: <200 mg/dL Borderline high: 200-239 mg/dL High: >or= 240 mg/dL Literature References: 1. Expert Panel on Integrated Guidelines for Cardiovascular Health and Risk Reduction in Children and Adolescents. Pediatrics 2011;128:S213 2. NCEP Expert Panel. Circulation 2004;110:227 Current Interpretive Data was last revised on 2018. Testing performed by: [facility], [address] [place] [address]., [address] Triglycerides 114 <=149 mg/dL [facility] Comment: Interpretive Data Ages < or = 9 years Acceptable: <75 mg/dL Borderline high: 75-99 mg/dL High: >or= 100 mg/dL Ages 10 to 20 years Acceptable: <90 mg/dL Borderline high: 90-129 mg/dL High: >or= 130 mg/dL Ages > or = 20 years Desirable: <150 mg/dL Borderline high: 150-199 mg/dL High: 200-499 mg/dL Very high: >or= 499 mg/dL Literature References: 1. Expert Panel on Integrated Guidelines for Cardiovascular Health and Risk Reduction in Children and Adolescents. Pediatrics 2011;128:S213 2. NCEP Expert Panel. Circulation 2004;110:227 Current Interpretive Data was last revised on 2018. Testing performed by: [facility], [address] [place] [address]., [address] HDL 62 >=40 mg/dL ERIC Comment: Interpretive Data Ages < or = 19 years Acceptable: >45 mg/dL Borderline low: 40-45 mg/dL Low: <40 mg/dL Ages > or = 20 years Desirable: >or= 60 mg/dL Low: <40 mg/dL Literature References: 1. Expert Panel on Integrated Guidelines for Cardiovascular Health and Risk Reduction in Children and Adolescents. Pediatrics 2011;128:S213 2. NCEP Expert Panel. Circulation 2004;110:227 Current Interpretive Data was last revised on 2018. Testing performed by: [address] [address] LDL, calculated 132(H) <=129 mg/dL ERIC Comment: Interpretive Data Ages < or = 19 years Acceptable: <110 mg/dL Borderline high: 110-129 mg/dL High: >or= 130 mg/dL Ages > or = 20 years Optimal: <100 mg/dL Near optimal: 100-129 mg/dL Borderline high: 130-159 mg/dL High: >160 mg/dL Calculated using the Giovani LDL-C estimating equation. This equation was implemented on 2024. Prior to this date LDL-C was estimated using the Friedewald equation. Literature References: 1. Expert Panel on Integrated Guidelines for Cardiovascular Health and Risk Reduction in Children and Adolescents. Pediatrics 2011;128:S213 2. NCEP Expert Panel. Circulation 2004;110:[address] et al. TOM Cardiol. 2020 January 25;5(5):540-548. doi: 10.1001/jamacardio.2020.0013 Current Interpretive Data was last revised on 2024. Testing performed by: [address] [address] Non-HDL Cholesterol 152 mg/dL ERIC MURPHY Comment: Interpretive Data Ages < or = 19 years Acceptable: <120 mg/dL Borderline high: 120-144 mg/dL High: >145 mg/dL Ages > or = 20 years When triglycerides are >200 mg/dL, Non-HDL cholesterol is a secondary target of therapy with treatment goals that are 30 mg/dL greater than the LDL cholesterol target. Literature References: 1. Expert Panel on Integrated Guidelines for Cardiovascular Health and Risk Reduction in Children and Adolescents. Pediatrics 2011;128:S213 2. NCEP Expert Panel. Circulation 2004;110:227 Current Interpretive Data was last revised on 2018. Testing performed by: [address] [address] Chol/HDL ratio 3 ERIC Comment:Testing performed by : [address] [address] Blood 04/09/2025 11:5 9 AM CDT 04/09/2025 5:38 PM CDT us Lynn Perry MD LAB BLOOD ORDERABLES Final Re sult ERIC [address] Department [place] [address] * Comprehensive metabolic panel (04/09/2025 11:59 AM CDT) Sodium 141 135 - 145 mmol/L Comment:Testing performed by : [address] [address] Potassium, pl 4.3 3.3 - 4.9 mmol/L CERNER CH Comment:Testing performed by : [address] [address] Chloride 103 97 - 110 mmol/L CERNER CH Comment:Testing performed by : [facility], [address] [place] [address]., [address] CO2 26 22 - 32 mmol/L CERNER CH Comment:Testing performed by : [address], [address] Anion gap 12 2 - 15 mmol/L CERNER CH Comment:Testing performed by : [address], [address] BUN 20 6 - 25 mg/dL CERNER CH Comment:Testing performed by : [facility], [address] [place] [address]., [address] Creatinine 1.08 0.60 - 1.10 mg/dL CERNER CH Comment:Testing performed by : [address] [address] Glucose 97 70 - 199 mg/dL CERNER CH Comment: Interpretive Data Fasting glucose >/= 126 mg/dl is diagnostic for diabetes. Fasting is defined as no caloric intake for at least 8 hours. Fasting glucose between 100 mg/dl to 125 mg/dl is diagnostic of prediabetes. In a patient with classic symptoms of hyperglycemia or hyperglycemic crisis, a random glucose >/= 200 mg/dl is diagnostic for diabetes. In the absence of unequivocal hyperglycemia, results should be confirmed by repeat testing. The classification and Diagnosis of Diabetes Diabetes Care 202; 46: S19-S40. Current interpretive data was last revised 2022. Testing performed by: [address] [address] Calcium 9.5 8.5 - 10.3 mg/dL CERNER CH Comment:Testing performed by : [address] [address] Bilirubin, total 0.3 0.1 - 1.2 mg/dL CERNER CH Comment:Testing performed by : [facility], [address] [place] [address], [address] Protein, pl 6.7 6.5 - 8.5 g/dL CERNER CH Comment:Testing performed by : [address], [address] Albumin 3.9 3.5 - 5.0 g/dL CERNER CH Comment:Testing performed by : [address], [address] Alk phos 67 40 - 130 Units/L CERNER CH Comment:Testing performed by : [address], [address] ALT 15 7 - 45 Units/L CERNER CH Comment:Testing performed by : [address], [address] AST 23 10 - 45 Units/L CERNER CH Comment:Testing performed by : [address], [address] Blood 04/09/2025 11:5 9 AM CDT 04/09/2025 5:38 PM CDT Lynn Perry MD LAB BLOOD ORDERABLES Final Re sult [address] Department [place] [address] * (ABNORMAL) POCT lipid panel (01/31/2025 9:43 AM CDT) Cholesterol, POC 193 <200 MG/DL HDL, POC 51 >=40 mg/dL Triglycerides, POC 185(A) <=149 mg/dL LDL Cholesterol POC 105 <=129 mg/dL Chol/HDL Ratio, POC 2.0 NONE Non-HDL Cholesterol, POC 142 NONE mg/dL Cholesterol Total, POC 193 30 - 199 mg/dL Capillary blood 01/31/2025 9 :43 AM CDT Daniel Rubin MD POINT OF CARE TEST ORDERABLES Fi nal Result * Screening Mammogram Bilateral W Yazan (11/01/2024 10:00 AM TRUCKING SUPERVISOR) Anatomical Region Laterality Modality Breast Bilateral Mammography 11/01/2024 10:2 0 AM TRUCKING SUPERVISOR Impressions 11/01/2024 10:20 AM TRUCKING SUPERVISOR There is no mammographic evidence of malignancy. A 1 year screening mammogram is recommended. BI-RADS: 2 - Benign. The patient has been or will be contacted. The patient will be entered into a reminder system with a target due date of 1 year for her next mammogram. Electronically signed by: Perez Flores M.D. Narrative 11/01/2024 10:20 AM TRUCKING SUPERVISOR EXAMINATION: SCREENING MAMMOGRAM BILATERAL W YAZAN ORDERING HEALTHCARE PROVIDER: LYNN PERRY HISTORY: Routine screening mammography. COMPARISON: 10/21/2023, 10/07/2022, 09/15/2021, 05/08/2020 TECHNIQUE: CC and MLO views of the bilateral breasts were obtained with digital technique using breast tomosynthesis with C view. Computer aided detection was utilized. FINDINGS: DENSITY: There are scattered areas of fibroglandular density. BREASTS: There are stable postsurgical changes status post bilateral breast reduction. There are benign-appearing calcifications bilaterally. There are no suspicious masses, suspicious calcifications, or other suspicious findings in either breast. There has been no suspicious interval change. us Lynn Perry MD IMG MAMMO PROCEDURES Final Re sult * COLONOSCOPY (10/26/2023 8:35 AM TRUCKING SUPERVISOR) Anatomical Region Laterality Modality Other Narrative Procedure Note Dakota Marroquin MD - 10/26/2023 8:35 AM [facility] Patient Name: Mily Santoyo Procedure Date: 10/26/2023 8:35 AM Date of : 1955 Admit Type: Outpatient Age: 68 Gender: Female Attending MD: Dakota Marroquin M.D. Room: [facility] 3 Note Status: Finalized Procedure: Colonoscopy Indications: Constipation Referring MD: Lynn Perry M.D. Providers: Dakota Marroquin M.D., Tonio Guardado M.D. Medicines: Monitored Anesthesia Care Complications: No immediate complications. Estimated Blood Loss: Estimated blood loss: none. Procedure: Pre-Anesthesia Assessment: - Prior to the procedure, a History and Physicalwas performed, and patient medications and allergieswere reviewed. The patient is competent. The risks and benefits of the procedure and the sedation optionsand risks were discussed with the patient. Allquestions were answered and informed consent was obtained. Patient identification and proposed procedure were verified by the physician in the pre-procedurearea. Mental Status Examination: alert and oriented.Airway Examination: normal oropharyngeal airway and neck mobility. Respiratory Examination: clear to auscultation. CV Examination: normal. Prophylactic Antibiotics: The patient does not requireprophylactic antibiotics. Prior Anticoagulants: The patient has taken no anticoagulant or antiplatelet agents. ASA Grade Assessment: II - A patient with mild systemic disease. After reviewing the risks and benefits,the patient was deemed in satisfactory condition to undergo the procedure. The anesthesia plan was touse monitored anesthesia care (MAC). Immediately priorto administration of medications, the patient was re-assessed for adequacy to receive sedatives. The heart rate, respiratory rate, oxygen saturations, blood pressure, adequacy of pulmonary ventilation,and response to care were monitored throughout the procedure. The physical status of the patient was re-assessed after the procedure. - Immediately prior to administration ofmedications, the patient was re-assessed for adequacy to receive sedatives. - The risks and benefits of the procedure and the sedation options and risks were discussed with the patient. All questions were answered and informed consent was obtained. The benefits, risks and alternatives of theprocedure and sedation were discussed and informed consentwas obtained. All questions were answered. Please referto the signed informed consent document in the medical record. The scope was passed under direct vision.The PCF [id number] endoscope was introducedthrough the anus and advanced to the cecum, identified by appendiceal orifice and ileocecal valve. The colonoscopy was performed without difficulty. The patient tolerated the procedure well. The qualityof the bowel preparation was good. Anatomicallandmarks were photographed. The bowel preparation used was CoLyte via split dose instruction. Findings: The perianal and digital rectal examinations were normal. The colon (entire examined portion) appeared normal. The exam was otherwise without abnormality on direct and retroflexion views. Impression: - The entire examined colon is normal. - The examination was otherwise normal on directand retroflexion views. - No specimens collected. Recommendation: - Discharge patient to home. - Resume previous diet. - Continue present medications. - Repeat colonoscopy in 10 years for screening purposes. - Return to GI office in 6 weeks. Attending Participation: I was present and participated during the entire procedure from insertion to removal of the endoscope. Electronically signed by Dakota Marroquin MD Dakota Marroquin M.D. 10/26/2023 9:33:55 AM . Number of Addenda: 0 Note Initiated On: 10/26/2023 8:35 AM Recognized by the [employer] for promoting quality in endoscopy Dakota Marroquin MD ENDOSCOPY PROCEDURES Final Result * DIABETES EYE EXAM (02/11/2023) SCRIBED DIABETIC DILATED EYE EXAM Normal Impressions Lynn Perry MD - 02/11/2023 Negative diabetic eye exam, Rae Pérez, OD, [facility]. Narrative Lynn Perry MD - 02/11/2023 See scanned report us Rae Pérez OD HEALTH MAINTENANCE Final Result * DEXA SCAN (01/02/2022) Scribed Deca Scan Abnormal Impressions Lynn Perry MD - 01/02/2022 Low bone density of spine, T-score -1.1, [facility]. Narrative Lynn Perry MD - 01/02/2022 See scanned report. Historical Provider HEALTH MAINTENANCE Final Result * Hepatitis C antibody (09/11/2019 12:25 PM TRUCKING SUPERVISOR) Hep C Ab Negative Negative ERIC MURPHY Blood specimen (specimen) 09/11/2019 12:25 PM TRUCKING SUPERVISOR 09/11/2019 6:08 PM TRUCKING SUPERVISOR Lynn Perry MD LAB MICROBIOLOGY - GENERAL OR DERABLES Final Result ERIC [id number] [place] [address] from Last 3 Months or Most Recently Relevant to Health Maintenance Insurance MEDICARE [facility] [place] [address] [facility] MEDICARE ADVANTAGE [facility] MEDICARE ADVANTAGE Advance Directives For more information, please contact: [phone] * Full Code (Latest Code Status on File) Date Activated Date Inactivated Comments 10/26/2023 7:08 AM 10/26/2023 2:27 PM * Full Code Date Activated Date Inactivated Comments 05/12/2021 11:35 AM 05/12/2021 5:44 PM * Full Code Date Activated Date Inactivated Comments 08/14/2019 11:08 AM 08/14/2019 5:46 PM Care Teams Refrigeration Brazer/Solderer Relationship Specialty Start Date End Date Lynn Perry MD [address] [place] [address] PCP - General Infectious Diseases 05/02/18 Mateus Tran MD [address] [place] [address] Consulting Physician Neurology 10/26/18 Bruce Garcia MD [address] [place] [address] Consulting Physician Gastroenterology 12/05/18 Jimenez Shaw MD [address] [place] [address] Consulting Physician Ophthalmology 12/06/18 Иван Singh MD [address] [place] [address] Consulting Physician Urology 03/07/19 Myriam Abdullahi NP [address] [place] [address] Nurse Practitioner Dermatology 04/08/19 Dakota Marroquin MD [address] [place] [address] Consulting Physician Gastroenterology 05/21/19 Daniel Rubin MD [address] [place] [address] Consulting Physician Cardiology 09/11/19 [place] [address] [place] [address] Consulting Physician Neurology 06/20/20 Jay Meadows MD [address] [place] [address] Consulting Physician Orthopedic Surgery 07/26/20 Larry Block DPM [address] [place] [address] Consulting Physician Orthopedic Surgery 12/02/20 [place] [address] [place] [address] Consulting Physician Orthopedic Surgery 12/19/20 Ata Flores MD [address] [place], [place] [id number] Referring Physician Endocrinology Diabetes & Metabolism 08/25/21 Rae Pérez OD [address] [place] [address] Consulting Physician Optometry 08/18/21 Logan Mitchell MD [facility] [address] [place] [address] Consulting Physician Allergy and Immunology 05/20/22 Frank Rodriguez, MARIBEL [address] [place] [id number] Nurse Practitioner Psychiatry 09/17/22 Rebecca Watkins MD [address] [facility] [id number] [place] [address] Consulting Physician Colon and Rectal Surgery 01/20/23 Madelyn Church MD [address] [place] [address] Referring Physician Nephrology 05/02/24 Josi Zamora OD [address] [place] [address] Consulting Physician Optometry 10/16/24
--- OUTSIDE RECORDS SUMMARY | 2025-04-23 13:09 | XMS_ITS | Clinical Summary ---
Author Organization [facility] [address] Address [address] [place] [address] Phone Care Team Providers Care English Professor Name Role Phone Lynn Perry MD Primary Care Provider [phone] Mateus Tran MD Unavailable Bruce Garcia MD Unavailable Jimenez Shaw MD Unavailable Иван Singh MD Unavailable Myriam Abdullahi MACHINE ADJUSTER LEADER CASE TRIM Unavailable Dakota Marroquin MD Unavailable Daniel Rubin MD Unavailable Loni RODRIGUES MD, Carlos M. Unavailable Jay Meadows MD Unavailable Larry Block DPM Unavailable Yaw Menchaca MD Unavailable + Ata Flores MD Unavailable [phone] Rae Pérez OD Unavailable Logan Mitchell MD Unavailable Frank Rodriguez MACHINE ADJUSTER LEADER CASE TRIM Unavailable [phone] Rebecca Watkins MD Unavailable [phone] Madelyn Church MD Unavailable [phone] Josi Zamora OD Unavailable Allergies Active Allergy Reactions Criticality Noted Date [...] Propoxyphene Hcl Unknown 04/21/2017 Other reaction(s): Unknown Iboedqx-Ivh-Aid Reductase Inhibitors Muscle pain Medium 03/27/2019 Sulfa [...] 1 tablet (100 mcg total) by mouth hide cleaner before breakfast 5 Active midodrine (PROAMATINE) 2.5 [...] HPI/AP. Assessment & Plan (10/16/2024 11:37 AM MERCERIZING RANGE FEEDER): Chronic, noted about a year ago and [...] 02/24/2024 Assessment & Plan (10/13/2023 1:05 PM MERCERIZING RANGE FEEDER): Kidney function is being monitored closely with regular labs drawn in her publicity manager office, Dr. Flores. We will request any available recent results. Chronic idiopathic constipation 09/10/2023 Screening for colorectal cancer 09/10/2023 Dysphagia 09/10/2023 Pill dysphagia 08/30/2023 Overview (09/13/2023): Big pills get stuck below thyroid area. Assessment & Plan (09/13/2023 10:02 AM MERCERIZING RANGE FEEDER): About two weeks ago, she started to [...] monitor. Assessment & Plan (09/27/2023 5:06 PM MERCERIZING RANGE FEEDER): Symptoms started about six weeks ago and [...] a recent sleep study this month at [facility]. Images of the EKG were obtained. EKG [...] (12/17/2022): Added automatically from request for surgery [id number] Dry mouth 05/06/2022 Overview (10/12/2023): [facility] entry, details lacking. Dry eyes 05/06/2022 Overview (10/12/2023): [facility] entry, details lacking. Low bone density 01/02/2022 Overview (01/08/2022): Low bone density of spine, T-score -1.1, [facility]. Ankle swelling 12/27/2019 Overview (01/25/2020): Intermittent [...] patient relates that she has been taking wezc-wzo-vdnxmqo Aleve to help with hand arthralgias. This [...] also recommend that she follow-up with her freight conductor, Dr. Rubin, to consider a possible change in blood pressure medication from amlodipine to an alternative agent, or to modify her diuretic therapy. Follow-up here as scheduled for this problem. Rash 10/29/2019 Overview (11/03/2019): If her thyroid is out of whack, gets a pimple or two on upper right back. Current rash is very pruritic, raised. Assessment & Plan (11/03/2019 11:17 AM MERCERIZING RANGE FEEDER): Last Wednesday, she noted and itchy and [...] eczema type rash. She will try some znbo-nis-ccwkrpx hydrocortisone cream for couple of weeks. If [...] of these treatments when she was in [facility]. The current hand pain shares some features [...] changes. Assessment & Plan (10/16/2024 11:33 AM MERCERIZING RANGE FEEDER): Chronic, present for 4-5 years, noted on [...] side effect of minoxidil prescribed by her asphalt spreader for thinning of her hair. We recommended stopping minoxidil and following up early here or in cardiology if symptoms persist. Assessment & Plan (09/24/2021 7:35 PM MERCERIZING RANGE FEEDER): She takes furosemide to control swelling in her feet. The dose was reduced to once a day. Continue same. Assessment & Plan (09/11/2019 12:31 PM MERCERIZING RANGE FEEDER): She is seeing a freight conductor at [facility], Dr. Rubin. Medications were adjusted recently to hopefully help her deal with some diastolic dysfunction which is the likely cause of her dyspnea with exertion. Obesity and deconditioning are probably contributing as well. Exam today shows clear lungs and no swelling in her legs. Abdominal pain 06/22/2019 Overview (03/19/2022): Added automatically from request for surgery [id number], normal colonoscopy 08/14/2019, Dakota Marroquin MD, [place]. Hypertension associated with type 2 diabetes venus litus 06/12/2019 Assessment & Plan (04/15/2025 2:50 PM CDT): See [facility] HPI/AP. Assessment & Plan (10/16/2024 11:34 AM MERCERIZING RANGE FEEDER): Chronic, present for 5-6 years, and actually [...] standing. Assessment & Plan (10/13/2023 1:01 PM MERCERIZING RANGE FEEDER): Blood pressure is in a good range [...] pressure. Assessment & Plan (10/07/2022 2:59 PM MERCERIZING RANGE FEEDER): Blood pressure is in a good range. [...] pressure. Assessment & Plan (09/12/2021 10:31 AM MERCERIZING RANGE FEEDER): Blood pressure is in a good range [...] months. Assessment & Plan (09/28/2020 1:41 PM MERCERIZING RANGE FEEDER): Blood pressure is in a good range [...] on medications started last fall/winter by her freight conductor, Dr. Rubin. I suspect the elevation may [...] examination. Assessment & Plan (09/23/2019 3:30 PM MERCERIZING RANGE FEEDER): As part of her workup for chronic [...] She will discuss these options with her sap business objects developer, Dr. Marroquin, who she sees on September 15. Non-seasonal allergic rhinitis due to pollen 07/2019 Assessment & Plan (10/07/2022 3:01 PM MERCERIZING RANGE FEEDER): Continue Flonase. Assessment & Plan (01/25/2020 4:49 PM CDT): She needed a refill of Flonase which we sent in. Assessment & Plan (03/14/2019 4:10 PM CDT): Her allergies have flared up since moving to the [facility]. When she lived in [place], they were more or less year round, [...] somatic dysfunction 03/06/2019 Overview (09/08/2019): Entered by TAFE REGISTRAR, prior care, details lacking. Chronic diarrhea 10/03/2018 Overview (10/04/2022): History of overflow diarrhea. Current symptoms are different than in the past. Defogram 09/18/2022: Small anterior rectocele without recto-rectal intussusception. Assessment & Plan (10/13/2023 12:56 PM MERCERIZING RANGE FEEDER): She has a history of o verflow diarrhea , but mostly she is trouble with constipation. We will monitor clinically. Assessment & Plan (03/07/2019 9:39 AM CDT): In addition to constipation, she sometimes has diarrhea for which she takes Imodium as needed. These are longstanding symptoms. She plans to follow up with GI at [facility] in a couple of months for a [...] past. She would like to see a sap business objects developer, and I think this is certainly reasonable. In the meantime, we will check some stool studies as ordered. She has tried fiber and zszd-ejw-pcfjnzi Imodium which usually has helped with her past bouts of diarrhea. She is not using constipation remedies such as Linzess because of the diarrhea. We will arrange for her to see a sap business objects developer as soon as possible. Hyperlipidemia associated with type 2 diabetes christine zaidi 08/08/2018 Overview (09/05/2018): Intolerant of statins (muscle pain). Assessment & Plan (04/15/2025 2:50 PM CDT): See [facility] HPI/AP. Assessment & Plan (10/16/2024 11:34 AM MERCERIZING RANGE FEEDER): Chronic, present for 6-7 years, uncontrolled due [...] 02/24/2024 Assessment & Plan (10/13/2023 1:01 PM MERCERIZING RANGE FEEDER): Statins cause muscle pain. She is trying to control things with her diet. She gets labs done at her publicity manager office, Dr. Flores. Fasting lipids will be due with her next blood draw. Assessment & Plan (04/08/2023 9:22 AM CDT): She is intolerant of statins. We will monitor lipids periodically to give her feedback on her diet. Lipids may have been done in Dr. Flores's office in February. We are requesting those results. Assessment & Plan (10/07/2022 2:58 PM MERCERIZING RANGE FEEDER): She is intolerant of statins. We will [...] She will discuss alternative therapy with her freight conductor, Dr. Rubin. Assessment & Plan (09/12/2021 10:33 AM MERCERIZING RANGE FEEDER): Her lipid profile actually looks pretty favorable. She is tolerating a standard dose of generic Lipitor, even though statins have bothered her somewhat in the past. It was prescribed by her freight conductor, Dr. Rubin. Continue same. Lab Results Component [...] labs. Assessment & Plan (09/25/2020 3:52 PM MERCERIZING RANGE FEEDER): She is on generic Lipitor, tolerating well. Cholesterol profile looks pretty favorable. Continue same. Assessment & Plan (03/06/2020 2:51 PM CDT): She is intolerant of statins due to muscle pain. We will check follow-up lipids before her next visit to see how she is doing with dietary control. Assessment & Plan (09/23/2019 3:29 PM MERCERIZING RANGE FEEDER): She has been somewhat intolerant of statins in the past which caused muscle pain. However, generic Crestor was resumed by her freight conductor, Dr. Rubin, recently. She does note migratory [...] diet. Assessment & Plan (09/05/2018 11:59 AM MERCERIZING RANGE FEEDER): We checked a cholesterol panel and it [...] or refer her to Dr. Marroquin, her sap business objects developer. Obesity (BMI 30-39.9) 03/27/2016 Assessment & Plan (04/08/2023 9:23 AM CDT): She is experiencing a slow but steady weight loss on Ozempic, and is no longer obese. She will keep her follow ups with her publicity manager, Dr. Flores. Assessment & Plan (10/18/2022 6:05 PM MERCERIZING RANGE FEEDER): We encouraged attention to her diet and little bit of weight loss. Assessment & Plan (03/23/2022 11:24 AM CDT): Her weight is stable. We encouraged attention to her diet, and hopefully some weight loss. Assessment & Plan (09/12/2021 10:31 AM MERCERIZING RANGE FEEDER): She has lost about 15 lb on her diet and Ozempic. I congratulated her. She will continue her efforts. Type 2 diabetes mellitus wit h diabetic polyneuropathy, without long-term current use of insulin 10/28/2011 Overview (03/05/2020): Vascular/history of stroke. Assessment & Plan (04/15/2025 2:51 PM CDT): See [facility] HPI/AP. Assessment & Plan (10/16/2024 11:37 AM MERCERIZING RANGE FEEDER): Chronic, present for more than 10 years, [...] 02/24/2024 Assessment & Plan (10/13/2023 1:06 PM MERCERIZING RANGE FEEDER): Blood sugars seem pretty well controlled with her diet. Continue same, and follow-up in six months. Assessment & Plan (04/08/2023 9:26 AM CDT): She is on Farxiga and Ozempic. The last hemoglobin A1c in her publicity manager's office was 5.1% representing excellent control. We will see her back in six months. Assessment & Plan (10/18/2022 6:09 PM MERCERIZING RANGE FEEDER): Diabetes is well controlled on diet and [...] CDT): Diabetic eye exam, 02/10/2022, [facility]. Assessment & Plan (09/12/2021 10:30 AM MERCERIZING RANGE FEEDER): Blood sugars are generally in the low [...] 09/10/2020 Assessment & Plan (09/25/2020 3:51 PM MERCERIZING RANGE FEEDER): Blood sugars vary from 100-115 mg/dL. Hemoglobin [...] 02/26/2020 Assessment & Plan (09/11/2019 12:20 PM MERCERIZING RANGE FEEDER): Hemoglobin A1c is in a good range, [...] therapy. Assessment & Plan (09/05/2018 11:59 AM MERCERIZING RANGE FEEDER): Blood sugars usually run between 90 and [...] now. Assessment & Plan (08/04/2018 1:56 PM MERCERIZING RANGE FEEDER): She has had type 2 diabetes for the past six years or so. No known complications. She takes metformin. We will check some labs and monitor closely. Presbycusis of both ears 03/27/2009 Assessment & Plan (10/16/2024 11:36 AM MERCERIZING RANGE FEEDER): Chronic but newly reported symptom, present for more than 15 years. She wore hearing aids for awhile but stopped using them for unclear reasons. She feels that her hearing is getting worse so we referred her to audiology for a formal evaluation. Chronic constipation 07/28/2008 Overview (10/04/2022): Defogram 09/18/2022: Small anterior rectocele without recto-rectal intussusception. Assessment & Plan (10/13/2023 12:56 PM MERCERIZING RANGE FEEDER): She takes Linzess to keep her bowels moving. It is prescribed by her GI physician, Dr. Marroquin. On a recent cruise, she actually had traveler's diarrhea and was quarantine for 24 hours but things are back to normal for her now. Assessment & Plan (10/07/2022 2:55 PM MERCERIZING RANGE FEEDER): She is seeing GI for constipation and [...] Assessment & Plan (02/05/2021 2:39 PM CDT): Movantik stopped working, so now she is on Amitiza. She will keep her follow ups with Dr. Marroquin. Assessment & Plan (03/14/2019 4:08 PM CDT): She has alternating constipation and diarrhea. She has seen GI at [facility] and had a fairly extensive workup including a normal colonoscopy in December. She has decided to see a GI doctor at [facility]. This will take place in April. In the meantime, she takes a fiber supplement to stay regular. Assessment & Plan (09/19/2018 6:11 AM MERCERIZING RANGE FEEDER): She plans to see a sap business objects developer about her GI symptoms. Currently the referral and consultation are pending, but she will get us the information once it is available. She is probably due for a follow-up colonoscopy. I have no records of prior GI care at this time. Assessment & Plan (08/04/2018 1:54 PM MERCERIZING RANGE FEEDER): She has had chronic constipation for quite a while. She has had several colonoscopies. Her last one was in the spring, and they could not get past a kink in her bowel. Details are lacking because it was done in [facility] before her retired. We will refer to the sap business objects developer of her choice, Dr. Real, for further evaluation. Mild intermittent asthma without complication Overview (09/05/2018): Uses a rescue inhaler as needed. Assessment & Plan (10/16/2024 11:35 AM MERCERIZING RANGE FEEDER): Chronic, present for 20 years or so, currently asymptomatic and not requiring bronchodilator therapy. We will monitor clinically. Assessment & Plan (10/13/2023 1:03 PM MERCERIZING RANGE FEEDER): She has not currently having any respiratory symptoms of concern such as wheezing or cough. She does not take any maintenance medication, nor does she even have a rescue inhaler at this time. We will monitor clinically. Assessment & Plan (10/07/2022 3:01 PM MERCERIZING RANGE FEEDER): She is not currently using an inhaler. Lungs are clear except for a few LLL crackles. Assessment & Plan (03/23/2022 11:24 AM CDT): She wanted albuterol off her list. She only uses it rarely and seasonally. Assessment & Plan (09/25/2020 3:52 PM MERCERIZING RANGE FEEDER): She is not requiring an inhaler. Lungs are clear and oxygen saturation is normal. We will monitor clinically. Assessment & Plan (03/06/2020 2:52 PM CDT): She has a rescue inhaler for use as needed. Lungs are clear and oxygen saturation is normal. Continue same. Assessment & Plan (09/11/2019 12:34 PM MERCERIZING RANGE FEEDER): She is doing pretty well with her asthma. No major new symptoms reported. Continue albuterol as needed. Assessment & Plan (03/07/2019 9:41 AM CDT): Lungs are clear. She has a rescue inhaler to use as needed. Continue same. Assessment & Plan (09/05/2018 11:58 AM MERCERIZING RANGE FEEDER): She did not mention this previously, but about 10 or 12 years ago, she developed adult onset asthma. She got it under control with several inhalers and eventually symptoms tapered off. Currently she only needs a rescue inhaler once in a while. She has an oral surgery assistant, Dr. Cameron, at [facility] she plans to see regularly. Continue same. TOMAS (obstructive sleep apnea) 07/28/2006 Overview (08/04/2018): On CPAP Assessment & Plan (04/15/2025 2:50 PM CDT): See [facility] HPI/AP. Assessment & Plan (09/11/2019 12:34 PM MERCERIZING RANGE FEEDER): She is on CPAP, continue same. History of stroke 07/28/2000 Overview (08/04/2018): Strokes in 1999 and 2000. In 2004 started having TIAs. Was placed on Plavix. Assessment & Plan (08/21/2018 1:51 PM MERCERIZING RANGE FEEDER): She apparently has had some small strokes [...] resected from left angle of jaw in [place]. No radiation or other treatment needed. Referred [...] voice. Assessment & Plan (10/13/2023 12:58 PM MERCERIZING RANGE FEEDER): She recently noted some swallowing difficulty and discomfort in the right lower neck. She is currently scheduled for a follow-up EGD at the end of the month. Assessment & Plan (04/08/2023 9:21 AM CDT): Overall, her bowels are doing much better. She is not currently requiring anything for acid reflux on a regular basis. Assessment & Plan (10/07/2022 2:56 PM MERCERIZING RANGE FEEDER): Nexium is not controlling her symptoms. We will try Dexilant. She may be a candidate for a Gilda. She will discuss this with Dr. Marroquin if the Dexilant does not work. Assessment & Plan (09/12/2021 10:32 AM MERCERIZING RANGE FEEDER): She sees Dr. Marroquin. She is on generic Nexium. Continue same. Assessment & Plan (02/05/2021 2:39 PM CDT): She has a long history of acid reflux. She had a stricture that was dilated about 30 years ago. Recently she has had trouble swallowing again. She has a follow-up with her sap business objects developer, Dr. Marroquin, in February. She will discuss additional workup with him. Assessment & Plan (09/25/2020 3:53 PM MERCERIZING RANGE FEEDER): She continues on Nexium which I believe she gets vmbo-mjc-pmymywq. Assessment & Plan (03/06/2020 2:51 PM CDT): [...] say. Assessment & Plan (09/05/2018 11:57 AM MERCERIZING RANGE FEEDER): She continues to have some difficulty with her voice being intermittently hoarse. Her GI symptoms are controlled on current therapy, but she does plan to follow up with a sap business objects developer and may need a follow-up EGD as well as a colonoscopy. Assessment & Plan (08/04/2018 1:54 PM MERCERIZING RANGE FEEDER): She has a long history of acid [...] CDT): See [facility] HPI/AP. Assessment & Plan (10/16/2024 11:30 AM MERCERIZING RANGE FEEDER): Chronic, controlled on levothyroxine 88 mcg daily monitored by her publicity manager, Dr. Flores. Continue same and follow-up in [...] of levothyroxine was adjusted recently by her publicity manager, Dr. Flores. We will get recent labs done in February in his office. Assessment & Plan (10/07/2022 2:54 PM MERCERIZING RANGE FEEDER): She is on replacement therapy and follows up with endocrinology. Continue same. Lab Results Component Value Date TSH 0.62 09/05/2021 Assessment & Plan (03/23/2022 11:23 AM CDT): She is followed by endocrinology. She is on replacement therapy. Continue same. Lab Results Component Value Date TSH 0.62 09/05/2021 Assessment & Plan (09/12/2021 10:34 AM MERCERIZING RANGE FEEDER): TSH and free T4 are in a normal range. Continue current replacement. Follow-up in six months. Lab Results Component Value Date TSH 0.62 09/05/2021 Assessment & Plan (09/25/2020 3:53 PM MERCERIZING RANGE FEEDER): She has had more fatigue lately. She would like to check her thyroids again. TSH was normal back in February. We will get back with her about the updated results. Assessment & Plan (09/23/2019 3:27 PM MERCERIZING RANGE FEEDER): TSH is low, possibly indicating a replacement [...] months. Assessment & Plan (09/05/2018 11:56 AM MERCERIZING RANGE FEEDER): TSH was slightly elevated. She used to [...] months. Assessment & Plan (08/04/2018 1:53 PM MERCERIZING RANGE FEEDER): About 30 years ago, she had Graves [...] escitalopram. Assessment & Plan (10/16/2024 11:35 AM MERCERIZING RANGE FEEDER): Chronic, present for decades, currently treated with [...] Higgins. Assessment & Plan (10/13/2023 1:04 PM MERCERIZING RANGE FEEDER): Her mood seems quite positive on current therapy consisting of Wellbutrin XL 300 mg daily and Viibryd 20 mg daily prescribed by Paul CHRISTINE. Continue same. Assessment & Plan (04/08/2023 9:23 AM CDT): She sees Paul Rodriguez, ANP, and a license clinical social security specialist. She is doing well on vilazodone. Continue same. Assessment & Plan (10/07/2022 3:02 PM MERCERIZING RANGE FEEDER): She sees Frank Rodriguez, also a LAUNDRY OPERATOR. Mood is fair. She would like to [...] him. Assessment & Plan (09/25/2020 3:51 PM MERCERIZING RANGE FEEDER): She sees Dr. Marroquin. She is on Cymbalta and was started on amitriptyline at bedtime. Continue same. Mood does seem flat, but it is her baseline. Assessment & Plan (09/11/2019 12:43 PM MERCERIZING RANGE FEEDER): She sees Dr. Marroquin. Medications have been [...] same. Assessment & Plan (08/04/2018 1:56 PM MERCERIZING RANGE FEEDER): She has a long history of depressed [...] Date Acute sinusitis 11/12/2020 11/12/2020 Overview (11/12/2020): [facility], details lacking. Acute otitis media, right 11/09/2020 Overview (02/04/2021): Phone diagnosis, see notes. Strain of left Achilles tendon 03/27/2020 02/05/2021 Overview (02/05/2021): Was in a cast for a while, is better now. Cough 12/19/2019 09/06/2021 Overview (03/05/2020): Details lacking. Influenza-like illness 12/11/201901/21 Overview (01/22/2020): See phone messages, resolved. Constipation 06/22/2019 02/04/2021 Overview (09/08/2019): Added automatically from request for surgery [id number], normal colonoscopy 08/14/19, [place]. Prolonged posttraumatic stress [...] notes. Assessment & Plan (08/04/2018 1:51 PM MERCERIZING RANGE FEEDER): She has had about three weeks of [...] in one month or sooner as needed. Encounters Date Type Department Care Team Description 04/16/2025 11:30 AM CDT Office Visit [facility] [address] [place] [address] Lynn Perry MD Type 2 diabetes mellitus with diabetic polyneuropathy, without long-term current use of insulin (HCC) (Primary Dx); Hypertension associated with type 2 diabetes mellitus (HCC); Hyperlipidemia associated with type 2 diabetes mellitus (HCC); Adult hypothyroidism; TOMAS (obstructive sleep apnea); Stage 3a chronic kidney disease (HCC) 04/09/2025 12:00 PM CDT Lab [facility] [address] [place] [address] Medicare annual wellness visit, subsequent; Type 2 diabetes mellitus with diabetic polyneuropathy, without long-term current use of insulin (HCC); Hypertension associated with type 2 diabetes mellitus (HCC); Hyperlipidemia associated with type 2 diabetes mellitus (HCC); Adult hypothyroidism 04/09/2025 Results Follow-Up [facility] [address] [place] [address] Lynn Perry MD Hemoglobin A1c, Comprehensive metabolic panel, Albumin Creatinine Ratio, Urine, Additional followed-up results: 3 03/01/2025 2:40 PM CDT Office Visit [facility] [address] [place] [address] [place] [address] Dakota Marroquin MD Chronic idiopathic constipation (Primary Dx) 01/31/2025 9:30 AM CDT Office Visit [facility] [address] [place] [address] Daniel Rubin MD Hypertension associated with type 2 diabetes mellitus (HCC) (Primary Dx); Orthostatic dizziness; History of CVA (cerebrovascular accident); 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 CATARACT EXTRACTION 09/27/2008 - 09/26/2009 Left Reading lens placed. BLADDER SURGERY 12/26/2017 - 01/24/2018 Dr. Singh placed a bladder nerve stimulator for incontinence. CHOLECYSTECTOMY OPEN 09/27/1982 - 09/26/1983 Emergency surgery. PLASTIC SURGERY 09/27/2014 - 09/26/2015 Rubens ponce. HYSTERECTOMY 09/27/1990 - 09/26/1991 OOPHERECTOMY 09/27/1999 - 09/26/2000 Bilateral TONSILECTOMY, ADENOIDECTOMY, BILATERAL MYRINGOTOMY AND TUBES DIAGNOSTIC LAPAROSCOPY CARPAL TUNNEL RELEASE Right ABDOMINOPLASTY HM COLONOSCOPY 01/09/2019 Normal except for small internal hemorrhoids, Dr. Bullock, [facility]. MELANOMA RESECTION 09/27/1990 - 09/26/1991 Left angle of jaw, [facility]. Completely resected (in situ). MAMMOGRAPHY 04/07/2019 Negative, AMS. 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 SALPINGOOPHORECTOMY COMBINED REDUCTION MAMMAPLAS TY W/ LIPOSUCTION APPENDECTOMY REDUCTION MAMMAPLASTY COLONOSCOPY 08/14/2019 Normal, Dakota Marroquin MD, [place]. UPPER GASTROINTESTINAL ENDOSCOPY - 09/26/1989 For stricture, dilated. Done in [place], details lacking. MAMMOGRAPHY 05/08/2020 Bilateral Negative, AMS. ANGIOPLASTY 09/27/2012 - 09/26/2013 KNEE ARTHROSCOPY W/ LATERAL RELEASE 1990 - 09/26/1991 COSMETIC SURGERY 1980, 2012 ESOPHAGOGASTRODUODENOSCOPY 05/12/2021 Normal, Dr. Marroquin. COLONOSCOPY 05/12/2021 One 2 mm Hyperplastic polyp in the proximal ascending colon, removed. Dr. Marroquin. MAMMOGRAPHY 09/15/2021 Bilateral Negative, AMS. DIABETES EYE EXAM 02/06/2021 Bilateral No diabetic retinopathy, Radha Tyler, OD, [place] [facility]. DEXA SCAN 01/02/2022 Low bone density of spine, T-score -1.1, [facility]. DIABETES EYE EXAM 02/10/2022 Bilateral Diabetic eye exam, Rae Pérez [facility]. CATARACT EXTRACTION 2009 MAMMOGRAPHY 10/07/2022 Bilateral Negative, AMS. DIABETES EYE EXAM 02/11/2023 Bilateral Negative diabetic eye exam, Rae Pérez, OD, [facility]. MAMMOGRAPHY 10/21/2023 Bilateral Negative, AMS. COLONOSCOPY 10/26/2023 N/A Normal, Dr. Marroquin. ESOPHAGOGASTRODUODENOSCOPY 10/26/2023 N/A Normal esophagus, biopsied (squamous mucosa with mild reactive epithelial changes). Acute gastritis, biopsied (antral and oxyntic mucosa with mild inactive chronic gastritis, H pylori negative). Normal Duodenum. Dr. Marroquin. MAMMOGRAPHY 11/01/2024 Bilateral Negative, AMS. Medical History Medical History Date Comments Adult hypothyroidism 07/28/1985 History of Grave's thyroiditis, treated with radioactive iodine, then became hypothyroid. Has been on replacement since. Type 2 diabetes mellitus, wi thout long-term current use of insulin ([facility]) 10/28/2011 No know complic ations. Gastroesophageal reflux dise ase with esophagitis 07/28/1985 Acid has scarred her esophag us. Has a gravely voice. History of stroke 07/28/2000 Strokes in 200 0 and 2001. In 2004 started having TIAs. Was placed on Plavix. Glaucoma Graves disease Peripheral neuropathy Asthma Arthritis GERD (gastroesophageal reflux disease) Restless leg syndrome Eczema Chronically dry eyes Sleep apnea Laryngopharyngeal reflux Pelvic floor dysfunction Depression Benign essential hypertension 03/06/2019 Ap parently in remission. Major depressive disorder, r ecurrent episode, moderate ([facility]) 09/06/2018 Detail lacking, on meds. Chronic constipation Chronic diarrhea Dysphagia Food intolerance Cancer ([facility]) melanoma 1991 Stroke ([facility]) 1999, 2000 Mixed hyperlipidemia 03/06/2019 See lipid p anels and office notes Prolonged posttraumatic stress disorder 03/15/20 19 Entered at [facility] details lacking -> Mood disorder. Influenza-like illness 12/11/2019 See phone messages, resolved. Cataract 2009 Migraines 1992 Menstrual problem 1968 Acute sinusitis 11/12/2020 [facility] Ye[facility] wal[facility], details lacking. Constipation 06/22/2019 Added ezequiel kent from request for surgery [id number], normal colonoscopy 08/14/19, [place]. Acute otitis media, right 11/09/2020 Phone diagnosis, see notes. Acute left-sided low back pa in without sciatica 07/14/2018 Three weeks of constant mid to lower back pain to left of spine, constant, 5/5 severity. No radiation. No recent falls or injuries. Has had problems with back in the past including sciatica. See office notes. Strain of left Achilles tendon 03/27/2020 W as in a cast for a while, is better now. Cough 12/19/2019 Details lacking. Osteoporosis 2020 Chronic idiopathic constipation 09/10/2023 Family History Medical History Relation Name Comments Alcohol abuse Brother Bebeto Clotting disorder Brother Bebeto Colon cancer Brother Bebeto Crohn's disease Brother Bebeto Heart disease Brother Bebeto PTSD Brother Bebeto Stomach cancer Brother Bebeto Stroke Brother Bebeto Alcohol abuse Father Rubén Chemical Dependency Father Rubén Clotting disorder Father Rubén Diabetes Father Rubén Heart disease Father Rubén Alcohol abuse Mother Amanda Loredo Chemical Dependency Mother Amanda Loredo Clotting disorder Mother Amanda Loredo Diabetes Mother Amanda Loredo Heart attack Mother Amanda Loredo Stroke Mother Amanda Loredo Breast cancer Mother's Sister x 3 aunts Alcohol abuse Sister 1 Sujey Chemical Dependency Sister 1 Sujey Colon cancer Sister 1 Sujey Colon polyps Sister 1 Sujey Mental illness Sister 1 Sujey Arthritis Sister 2 Naa Asthma Sister 2 Naa Colon cancer Sister 2 Naa Fibromyalgia Sister 2 Naa Graves' disease Sister 2 Naa Obesity Sister 2 Naa Rashes / Skin problems Sister 2 Naa Uterine cancer Sister 2 Naa Arthritis Sister 3 Amanda rice Crohn's disease Sister 3 Sherry Depression Sister 3 Sherry Pancreatic cancer Sister 3 Amanda rice Crohn's disease Sister 4 Jessa Depression Sister 4 Jessa Liver cancer Sister 4 Jessa Depression Sister 5 Marleny Rashes / Skin problems Sister 5 Marleny Esophageal cancer Neg Hx Relation Name Status Comments Brother Bebeto Father Rubén Mother Amanda Loredo Mother's Sister Sister 1 Sujey Sister 2 Naa Sister 3 Sherry Sister 4 Jessa Sister 5 Marleny Social History Tobacco Use Types Packs/Day Years [...] on file Legal Sex Female 8:34 AM [employer]ING [employer] Gender Identity Female 12/01/2021 9:28 PM [employer]ER Sexual Orientation Straight 10/31/2020 6: 30 PM [employer]ING [employer]ER Occupation Industry Job Start Date Job End Date retired Not on file Not on file Not on file Obstetrics History Para Term AB IAB SAB Ectopic Multiple Livin g Live Births 2 0 0 Date Outcome GA Total Labor Labor/2nd/3rd Weight Sex Type Anes PTL She A1 A5 Name Clin Last Filed Vital Signs Vital Sign Reading [...] 04/16/2025 11:24 AM CDT Plan of Treatment Health Maintenance Due Date Last Done Comments DTaP/Tdap/Td Vaccine (2 - Td or Tdap) 11/26/2023 11/25/2013 Osteoporosis Screening-Bone Density Scan 01/03/2024 01/02/2022 Dilated Eye Exam 02/12/2024 02/11/2023, , 02/06/2021, Additional history exists Covid-19 Vaccine (2023-2 5 season) 2024 06/12/2024, 07/02/2023, 09/16/2022, Additional history exists Influenza Vaccine (#1) 2025 , 07/02/2023, 07/02/2023, Additional history exists Hemoglobin A1C 10/10/2025 04/09/2025, 09/27, 02/24/2024, Additional history exists Depression Screening 10/16/2025 10/16/2024, 10/13/2023, 10/07/2022, Additional history exists Fall Risk Assessment 10/16/2025 10/16/2024, 10/26/2023, 10/13/2023, Additional history exists Foot Exam 10/16/2025 10/16/2024, 03/27, 04/08/2023, Additional history exists Well Visit 65+ 10/16/2025 10/16/2024, 09/27, 10/07/2022, Additional history exists Breast Cancer Screening-Mammogram 11/01/2025 11/01/2024, 10/21/2023, 10/07/2022, Additional history exists Albumin Creatinine Ratio, Urine 04/09/2026 04/09/2025, 02/24/2024, 09/16/2022, Additional history exists Lipid Panel 04/09/2026 04/09/2025, 03/2025, 02/24/2024, Additional history exists eGFR 04/09/2026 04/09/2025, 10/28, 10/06/2024, Additional history exists Colon Cancer Screening-Colonoscopy 10/26/2033 10/26/2023, 05/12/2021, 08/14/2019, Additional history exists Zoster Vaccine Completed 04/25/2019, 01/26, 03/08/2013 Hepatitis C Screening Completed 09/11/2019 Pneumococcal vaccine 65+ Completed 023, 08/03/2019, 06/30/2018 Colon Cancer Screening-CT Colonography Discontinued 10/26/2023, 05/12/2021, 08/14/2019, Additional history exists Colon Cancer Screening-DNA Stool Discontinued 10/26/2023, 05/12/2021, 08/14/2019, Additional history exists Colon Cancer Screening-FIT Discontinued 10/26, 05/12/2021, 08/14/2019, Additional history exists Colon Cancer Screening-Sigmoidoscopy Discontinued 10/26/2023, 05/12/2021, 08/14/2019, Additional history exists Hepatitis B Screening Completed 10/06/2024 Procedures Procedure Name Priority Date/Time Associated Diagnosis [...] Read Routine (OP Routine) 11/01/2024 10:00 AM [employer]ING [employer] FE[employer]ER Breast cancer screening by mammogram COLONOSCOPY 10/26/2023 8:35 AM [employer]ING [employer] FEEDER DIABETES EYE EXAM Routine 02/11/2023 DEXA SCAN Routine 01/02/2022 HEPATITIS C ANTIBODY Routine 09/11/2019 12:25 PM [employer]ER Encounter for hepatitis C screening test for [...] was last reviewed 2021. Testing performed by: [address] [address] Blood 04/09/2025 11:5 9 AM CDT 04/09/2025 6:06 PM CDT us Lynn Perry MD LAB BLOOD ORDERABLES Final Re sult Performing Organization Address [facility] Co de Phone Number [facility] [id number] Department [place] [address] * Thyroid Function Riley (04/09/2025 11:59 AM CDT) TSH 4.12 0.30 - 4.20 mcIUnit/mL Comment:Testing performed by : [address] [address] Blood 04/09/2025 11:5 9 AM CDT 04/09/2025 5:38 PM CDT us Lynn Perry MD LAB BLOOD ORDERABLES Final Re sult [place] [id number] Department [place] [address] * Albumin Creatinine Ratio, Urine (04/09/2025 11:59 AM CDT) Albumin Ur <12.0 mg/L Comment: Interpretive Data No reference range established. Current interpretive data was last revised 2019. Testing performed by: [address] [address] Creatinine Ur 69.1 mg/dL ERIC Comment: Interpretive Data No reference range established. Current interpretive data was last revised 2019. Testing performed by: [address] [address] Albumin Creatinine Ratio, Ur <17 1 - 29 mg/g ERIC Comment:Testing performed by : [address] [address] Urine 04/09/2025 11:5 9 AM CDT 04/09/2025 5:37 PM CDT Lynn Perry MD LAB URINE ORDERABLES Final Re sult ERIC MURPHY [id number] [address] Department [place] [address] * Hemoglobin A1c (04/09/2025 11:59 AM CDT) Pathologist [facility] Hgb A1C 5.5 4.0 - 5.6 % Comment:Testing performed by : [address] [address] Estimated Average Glucose 111 mg/dL ERIC Comment: The ADA recommends reporting an estimated Average Glucose (eAG) with all Hemoglobin A1c results using the equation derived from a study of 507 normal and diabetic adults. Minority populations were underrepresented and children were not included. (Diabetes Care 31:5319-3126, 2008). The eAG is not equivalent to a fasting glucose. Testing performed by: [address] [address] Blood 04/09/2025 11:5 9 AM CDT 04/09/2025 5:38 PM CDT us Lynn Perry MD LAB BLOOD ORDERABLES Final Re sult ERIC [id number] [place] [address] Department [place] [address] * (ABNORMAL) Lipid panel (04/09/2025 11:59 AM [...] last revised on 2018. Testing performed by: [address] [address] Triglycerides 114 <=149 mg/dL ERIC MURPHY Comment: Interpretive Data Ages [...] last revised on 2018. Testing performed by: [facility], [address] [place] [address]., [address] HDL 62 >=40 mg/dL ERIC MURPHY Comment: Interpretive Data Ages [...] last revised on 2018. Testing performed by: [facility], [address] [place] [address]., [address] LDL, calculated 132(H) <=129 mg/dL ERIC MURPHY Comment: Interpretive Data Ages [...] NCEP Expert Panel. Circulation 2004;110:227 3. Giovani M et al. TOM Cardiol. 2020 January 25;5(5):540-548. doi: 10.1001/jamacardio.2020.0013 Current Interpretive Data was last revised on 2024. Testing performed by: [address] [address] Non-HDL Cholesterol 152 mg/dL ERIC Comment: Interpretive Data Ages < [...] last revised on 2018. Testing performed by: [facility] [address] [address] Chol/HDL ratio 3 CERNER Comment:Testing performed by : [address] [address] Blood 04/09/2025 11:5 9 AM CDT 04/09/2025 5:38 PM CDT us Lynn Perry MD LAB BLOOD ORDERABLES Final Re sult [address] Department [place] [address] * Comprehensive metabolic panel (04/09/2025 11:59 AM CDT) Sodium 141 135 - 145 mmol/L Comment:Testing performed by : [address] [address] Potassium, pl 4.3 3.3 - 4.9 mmol/L CERNER Comment:Testing performed by : [address] [address] Chloride 103 97 - 110 mmol/L CERNER Comment:Testing performed by : [address] [address] CO2 26 22 - 32 mmol/L CERNER CH Comment:Testing performed by : [address] [address] Anion gap 12 2 - 15 mmol/L CERNER Comment:Testing performed by : [address] [address] BUN 20 6 - 25 mg/dL CERNER Comment:Testing performed by : [address] [address] Creatinine 1.08 0.60 - 1.10 mg/dL CERNER Comment:Testing performed by : [address] [address] Glucose 97 70 - 199 mg/dL CERNER Comment: Interpretive Data Fasting glucose >/= 126 [...] classification and Diagnosis of Diabetes Diabetes Care 2021; 46: S19-S40. Current interpretive data was last revised 2022. Testing performed by: [facility], [address] [place] [address]., [address] Calcium 9.5 8.5 - 10.3 mg/dL CERNER CH Comment:Testing performed by : [facility], [address] [place] [address]., [address] Bilirubin, total 0.3 0.1 - 1.2 mg/dL CERNER CH Comment:Testing performed by : [address] [address] Protein, pl 6.7 6.5 - 8.5 g/dL CERNER CH Comment:Testing performed by : [address] [address] Albumin 3.9 3.5 - 5.0 g/dL CERNER CH Comment:Testing performed by : [facility], [address] [place] [address]., [address] Alk phos 67 40 - 130 Units/L CERNER CH Comment:Testing performed by : [address] [address] ALT 15 7 - 45 Units/L CERNER CH Comment:Testing performed by : [address] [address] AST 23 10 - 45 Units/L CERNER CH Comment:Testing performed by : [address] [address] Blood 04/09/2025 11:5 9 AM CDT 04/09/2025 5:38 PM CDT us Lynn Perry MD LAB BLOOD ORDERABLES Final Re sult ERIC Gissel Barclay Department [place] [address] * (ABNORMAL) POCT lipid panel (01/31/2025 9:43 [...] Mammogram Bilateral W Yazan (11/01/2024 10:00 AM [employer]ING [employer] FE[employer]ER) Anatomical Region Laterality Modality Breast Bilateral Mammography 11/01/2024 10:2 0 AM [employer] FE[employer]ER Impressions 11/01/2024 10:20 AM [employer]ING [employer] FEEDER There is no mammographic evidence of malignancy. A 1 year screening mammogram is recommended. BI-RADS: 2 - Benign. The patient has been or will be contacted. The patient will be entered into a reminder system with a target due date of 1 year for her next mammogram. Electronically signed by: Perez Flores M.D. Narrative 11/01/2024 10:20 AM [employer]ING [employer] FEEDER EXAMINATION: SCREENING MAMMOGRAM BILATERAL W YAZAN ORDERING [...] Re sult * COLONOSCOPY (10/26/2023 8:35 AM MER[employer]ING RANGE FEEDER) Anatomical Region Laterality Modality Other Narrative Procedure Note Dakota Marroquin MD - 10/26/2023 8:35 AM [facility] Patient Name: Mily Santoyo Procedure Date: 10/26/2023 8:35 AM Date of : 1955 Admit Type: Outpatient Age: 68 Gender: Female Attending MD: Dakota Marroquin M.D. Room: [facility] ENDOSCOPY ROOM 3 Note Status: Finalized Procedure: [...] scope was passed under direct vision.The PCF [id number] endoscope was introducedthrough the anus and [...] On: 10/26/2023 8:35 AM Recognized by the [employer] for promoting quality in endoscopy Dakota Marroquin MD ENDOSCOPY PROCEDURES Final Result * DIABETES EYE EXAM (02/11/2023) SCRIBED DIABETIC DILATED EYE EXAM Normal Impressions Lynn Perry MD - 02/11/2023 Negative diabetic eye exam, Rae Pérez OD, [facility]. Narrative Lynn Perry MD - 02/11/2023 See scanned report us Rae Pérez OD HEALTH MAINTENANCE Final Result * DEXA SCAN (01/02/2022) Scribed Deca Scan Abnormal Impressions Lynn Perry MD - 01/02/2022 Low bone density of spine, T-score -1.1, [facility]. Narrative Lynn Perry MD - 01/02/2022 See scanned report. Stacey Quijano MD HEALTH MAINTENANCE Final Result * Hepatitis C antibody (09/11/2019 12:25 PM MER[employer]ING RANGE FEEDER) Hep C Ab Negative Negative ERIC MURPHY Blood specimen (specimen) 09/11/2019 12:25 PM MER[employer]ING R[employer] FEEDER 09/11/2019 6:08 PM [employer]ING R[employer] FEEDER Lynn Perry MD LAB MICROBIOLOGY - GENERAL OR DERABLES Final Result ERIC MURPHY [id number] [place] [address] from Last 3 Months or Most Recently Relevant to Health Maintenance Insurance MEDICARE [facility] Address: [address] [address] [place] [address] [facility] MEDICARE ADVANTAGE Advance Directives For more information, please contact: [phone] * Full Code (Latest Code Status on File) Date Activated Date Inactivated Comments 10/26/2023 7:08 AM 10/26/2023 2:27 PM * Full Code Date Activated Date Inactivated Comments 05/12/2021 11:35 AM 05/12/2021 5:44 PM * Full Code Date Activated Date Inactivated Comments 08/14/2019 11:08 AM 08/14/2019 5:46 PM Care Teams English Professor Relationship Specialty Start Date End Date Lynn Perry MD [address] [address] PCP - General Infectious Diseases 05/02/18 Mateus Tran MD [address] [place] [address] Consulting Physician Neurology 10/26/18 Bruce Garcia MD [address] [place] [address] Consulting Physician Gastroenterology 12/05/18 Jimenez Shaw MD [address] [place] [address] Consulting Physician Ophthalmology 12/06/18 Иван Singh MD [address] [place] [address] Consulting Physician Urology 03/07/19 Myriam Abdullahi NP [address] [place] [address] Nurse Practitioner Dermatology 04/08/19 Dakota Marroquin MD [address] [place] [address] Consulting Physician Gastroenterology 05/21/19 Daniel Rubin MD [address] [facility] [address] [place], [place] [id number] Consulting Physician Cardiology 09/11/19 [place] [address] [facility] [address] [place] [address] Consulting Physician Neurology 06/20/20 Jay Meadows MD [address] [facility] [address] [place] [address] Consulting Physician Orthopedic Surgery 07/26/20 Larry Block DPM [address] [facility] [address] [place] [address] Consulting Physician Orthopedic Surgery 12/02/20 [place] [address] [facility] [address] [place] [address] Consulting Physician Orthopedic Surgery 12/19/20 Ata Flores MD [address] [place] [address] Referring Physician Endocrinology Diabetes & Metabolism 08/25/21 Rae Pérez OD [address] [place], [place] [id number] Consulting Physician Optometry 08/18/21 Logan Mitchell MD [address] [facility] [address] Consulting Physician Allergy and Immunology 05/20/22 Frank Rodriguez, MACHINE ADJUSTER LEADER CASE TRIM [address] [place] [address] Nurse Practitioner Psychiatry 09/17/22 Rebecca Watkins MD [address] [facility] [id number] [place] [address] Consulting Physician Colon and Rectal Surgery 01/20/23 Madelyn Church MD [address] [place] [address] Referring Physician Nephrology 05/02/24 Josi Zamora OD [address] [place] [address] Consulting Physician Optometry 10/16/24
--- OUTSIDE RECORDS SUMMARY | 2025-04-23 13:09 | XMS_ITS | Encounter Summary ---
Author Organization [facility] Address [address] [facility] [place] [address] Phone Care Team Providers Care Hoisting Machine Operator Name Role Phone Ozzie Rodriguez MD Primary Care Provider Stefan Marroquin MD Unavailable Mateus Tran MD Unavailable Bruce Garcia MD Unavailable Jimenez Shaw MD Unavailable Иван Singh MD Unavailable Myriam Abdullahi MECHANICAL ENGINEERING TECHNOLOGIST Unavailable Dakota Marroquin MD Unavailable Dainel Rubin MD Unavailable Loni RODRIGUES MD, Carlos M. Unavailable Jay Meadows MD Unavailable [phone] Larry Block DPM Unavailable Yaw Menchaca MD Unavailable + Ata Flores MD Unavailable [phone] Rae Pérez OD Unavailable Logan Mitchell MD Unavailable Frank Rodriguez MECHANICAL ENGINEERING TECHNOLOGIST Unavailable [phone] Rebecca Watkins MD Unavailable [phone] Ceci Chanel [facility] Unavailable [phone] Madelyn Church MD Unavailable Josi Zamora OD Unavailable Madelyn Church MD Unavailable Encounter Details Date Type Department Care Team (Late st Contact Info) Description 02/06/2021 Orders Only [facility] [address] [place] [address] Ozzie Rodriguez MD [address] [place] [address] Social History Tobacco Use Types Packs/Day Years Used Date Smoking Tobacco: Never Smokeless Tobacco: Never Alcohol Use Standard Drinks/Week Comments Yes 1 (1 standard drink = 0.6 oz pure alcohol) Social drinker maybe 1 or 2 per month PHQ-2 Answer Date Recorded PHQ-2 Total Score (If total score is 3 or more points, staff should administer the PHQ-9) 4 09/25/2020 Comments No Sex and Gender Information Value Date Recorded Sex Assigned at Not on file Legal Sex Female 8:34 AM GLYCERINE PLANT OPERATOR Gender Identity Female 12/01/2021 9:28 PM GLYCERINE PLANT OPERATOR Sexual Orientation Straight 10/31/2020 6: 30 PM GLYCERINE PLANT OPERATOR Occupation Industry Job Start Date Job End Date retired Not on file Not on file Not on file documented as of this encounter Plan of Treatment Not on file documented as of this encounter Procedures Procedure Name Priority Date/Time Associated Diagnosis Comments PROCEDURE - RESULT 02/06/2021 documented in this encounter Results * PROCEDURE - RESULT (02/06/2021) Ozzie Rodriguez MD Final Result documented in this encounter Visit Diagnoses Not on filedocumented in this encounter Additional Health Concerns Infection Onset Date Last Indicated Resolved Time C. difficile suspected 12/01/2024 12/01/202412/02 3:05 AM GLYCERINE PLANT OPERATOR documented as of this encounter Care Teams Hoisting Machine Operator Relationship Specialty Start Date End Date Ozzie Rodriguez MD [address] [place] [address] PCP - General Infectious Diseases 05/02/18 Stefan Marroquin MD [address] [address] Consulting Physician Psychiatry 09/05/18 10/06/22 Mateus Tran MD [address] [address] Consulting Physician Neurology 10/26/18 Bruce Garcia MD [address] [address] Consulting Physician Gastroenterology 12/05/18 Jimenez Shaw MD [address] [place] [address] Consulting Physician Ophthalmology 12/06/18 Иван Singh MD [address] [place] [address] Consulting Physician Urology 03/07/19 Myriam Abdullahi NP [address] [place] [address] Nurse Practitioner Dermatology 04/08/19 Dakota Marroquin MD [address] [place] [address] Consulting Physician Gastroenterology 05/21/19 Daniel Rubin MD [address] [facility] [address], [address] [place], [place] [address] Consulting Physician Cardiology 09/11/19 [place] [address] [facility] [address] [place] [address] Consulting Physician Neurology 06/20/20 Jay Meadows MD [address] [facility] [address] [place] [address] Consulting Physician Orthopedic Surgery 07/26/20 Larry Block DPM [address] [facility] [address] [place] [address] Consulting Physician Orthopedic Surgery 12/02/20 [place] [address] [facility] [address] [place] [address] Consulting Physician Orthopedic Surgery 12/19/20 Ata Flores MD [address] [place] [address] Referring Physician Endocrinology Diabetes & Metabolism 08/25/21 Rae Pérez OD [address] [place] [address] Consulting Physician Optometry 08/18/21 Logan Mitchell MD [facility] [place] [address] Consulting Physician Allergy and Immunology 05/20/22 Frank Rodriguez, MECHANICAL ENGINEERING TECHNOLOGIST [address] [place] [address] Nurse Practitioner Psychiatry 09/17/22 Rebecca Watkins MD [phone] [place] [address] Consulting Physician Colon and Rectal Surgery 01/20/23 Ceci Chanel, [facility] [address] [facility] [address] [place] [address] Pharmacist Pharmacy 08/07/24 08/07/24 Madelyn Church MD [address] [place] [address] Referring Physician Nephrology 05/02/24 Josi Zamora OD [address] [place] [address] Consulting Physician Optometry 10/16/24 Madelyn Church MD [address] [place] [address] Referring Physician Nephrology 12/26/24 04/15/25 documented as of this encounter
--- OUTSIDE RECORDS SUMMARY | 2025-04-23 13:09 | XMS_ITS ---
Author Organization [facility] Address [address] [address] Care Team Providers Care Resident Services Coordinator Name Role Phone Ozzie Rodriguez Primary Care Provider Ata Hardin Unavailable [phone] REASON FOR VISIT Type II DM. MEDICATIONS Medication SIG (Take, Route, Frequency, Duration) Notes Start Date End Date Status Plavix 75 MG 1 tablet Orally Once a day Active Vitamin B-12 1000 MCG 1 tablet Orally Once a day 0 04/24/2021 Active Vitamin D3 2000 UNIT 1 capsule Orally On ce a Day Active Ozempic (2 MG/DOSE) 8 MG/3ML INJECT SUBCUTANEOUSLY 2 MG EVERY WEEK for 84 Active Vilazodone HCl 20 MG 1 tablet with food Orally Once a day Active Linzess 290 MCG 1 Tablet Orally Once a day Active Brimonidine Tartrate 0.2 % 1 drop into a ffected eye Ophthalmic Two Times a Day Activ e Midodrine HCl 2.5 MG 1 tablet Orally Twi ce a day Active Levothyroxine Sodium 100 MCG 1 tablet in the morning on an empty stomach Orally Once a day for 60 days Active Iron 240 (27 Fe) MG 1 tablet with water or juice between meals Orally Once a day Active tiZANidine HCl 4 MG 1 tablet at bedtime as needed Orally Once a day as needed Active Wellbutrin XL 300 MG 1 tablet in the mor genny Orally Once a day Active LORazepam 0.5 MG 1 tablet at bedtime as needed Orally Once a day Active Encounters Encounter Location Date Provider Diagnosis [facility] [address] [facility] [address], [place] [address] 04/17/2025 Ata Flores Type 2 diabetes mellitus with hyperglycemia E11.65 ; Essential (primary) hypertension I10 ; Hyperlipidemia, unspecified E78.5 ; Hypothyroidism E03.9 ; Vitamin D deficiency, unspecified E55.9 ; Deficiency of other specified B group vitamins E53.8 ; Peripheral neuropathy G62.9 ; Goiter E04.9 ; Depression F32.9 ; Hair loss L65.9 and Orthostatic hypotension I95.1 ASSESSMENTS Encounter Date Diagnosis Assessment Notes Treatment Notes Treatment Clinical Notes Section Notes 04/17/2025 Type 2 diabetes mellitus with hyperglycemia (ICD-10 - E11.65) 04/17/2025 Essential (primary) hypertension (ICD-10 - I10) 04/17/2025 Hyperlipidemia, unspecified (ICD-10 - E78.5) 04/17/2025 Hypothyroidism (ICD-10 - E03.9) 04/17/2025 Vitamin D deficiency, unspecified (ICD-10 - E55.9) 04/17/2025 Deficiency of other specified B group vitamins (ICD-10 - E53.8) 04/17/2025 Peripheral neuropathy (ICD-10 - G62.9) 04/17/2025 Goiter (ICD-10 - E04.9) 04/17/2025 Depression (ICD-10 - F32.9) 04/17/2025 Hair loss (ICD-10 - L65.9) 04/17/2025 Orthostatic hypotension (ICD-10 - I95.1) 04/17/[address] Ata hidalgo dictates using [employer] Speaking software. Ammonia Box Tender variances may occur. PLAN OF TREATMENT Treatment Notes Assessment Notes Other Dr. Ata barillas ctates using [employer] Speaking software. Ammonia Box Tender variances may occur. Next Appt Details Provider Name:Ata Flores, 04/30/2025 10:30:00 AM, [address], [address], Progress Notes * Examination Category Sub-Category Detail Notes Category Not es General Examination GENERAL APPEARANCE: in no ac grary distress, well developed, well nourished HEAD: normocephalic, atrau matic EYES: pupils equal, round, reactive to light and accommodation NECK: neck supple, full ra nge of motion, no cervical lymphadenopathy, No carotid bruit, bilaterally HEART: S1, S2 regular rate and rhythm, no audible murmurs LUNGS: clear to auscultatio n bilaterally, no wheezes, rales, rhonchi ABDOMEN: normal, bowel sounds present, soft, nontender, nondistended, no palpable hepatosplenomegaly SKIN: warm and moist with no evidence of rash or jaundice EXTREMITIES: no edema, no deformi ty, dorsalis pedis pulses are 2+ bilaterally, sensation to monofilament is intact in both plantar surfaces THYROID The thyroid is palpa ble and nontender. There are no palpable thyroid nodules History and Physical Notes * HPI (History of Present Illness) Category Sub-Category Detail Notes Category Not es Interim History Last Dilated Eye exam Date: 07/2024 no diabetic retinopathy Flu shot: 2023 Dexa: Covid: Yes & Boosters Colonoscopy: [address] Pérez , Dr. Allan ler Diabetes mellitus The patient is being seen for Diabetes type II Pertinent recent symptoms: please refer to Review of Systems. Pertinent recent symptoms: please refer to Review of Systems. The patient's last follow-up was The patient complains of polyuria The patient complains of polydipsia The patient also reports fatigue Other symptoms include The patient denies The patient was diagnosed wi th diabetes in 2011 Laboratory testing has included Sugars have been running ... ... The current diabetes medicat ion(s) regimen consists of see specific dosage in current medicatio ns section Response to therapy Recent Hypoglycemia The last HbA1C was :: 5.3 % (12/14/2024 ) The patient has been monitor ing their blood sugars yes The patient has been monitor ing blood sugars 1-2 times a week The patient has had recent hypoglycemic episodes no The patient has had recent m ultiple hypoglycemic episode The patient uses an insulin pump no The patient uses a CGMS (Con t Glucose Monitoring Device) no Hypoglycemia awareness Yes Hypoglycemia awareness value is below 65 Recent labs show Last Dilated Eye exam: Opthamologist Hypothyroidism The patient is being seen for hypothyro idism 1984 The patient's last follow-up was The patient also reports weight gain The patient denies Medication(s) include levothyroxine Response to medication has has been good The patient also complains of weight los s
--- OUTSIDE RECORDS SUMMARY | 2025-04-23 13:09 | XMS_ITS ---
Author Organization [facility] Address [address] [address] Care Team Providers Care Payroll Benefits Clerk Name Role Phone Ozzie Rodriguez Primary Care Provider Ata Hardin Unavailable [phone] REASON FOR VISIT Lab Results MEDICATIONS Medication SIG (Take, Route, Frequency, Duration) Notes Start Date End Date Status Levothyroxine Sodium 100 MCG 1 tablet in the morning on an empty stomach Orally Once a day for 60 days Active Encounters Encounter Location Date Provider Diagnosis [facility] [address] [address] 01/05/2025 Ata Flores Hypothyroidism E03.9 and Abnormal thyroid function test R94.6 ASSESSMENTS Encounter Date Diagnosis Assessment Notes Treatment Notes Treatment Clinical Notes Section Notes 01/05/2025 Hypothyroidism (ICD-10 - E03.9) 01/05/2025 Abnormal thyroid function test (ICD-10 - R94.6) PLAN OF TREATMENT Medication Medication Name Sig Start Date Stop Date Notes Levothyroxine Sodium 100 MCG 1 tablet in the morning on an empty stomach Orally Once a day for 60 days Next Appt Details Provider Name:Ata Flores, 04/30/2025 10:30:00 AM, [address], [address],
--- OUTSIDE RECORDS SUMMARY | 2025-04-23 13:09 | XMS_ITS | Encounter Summary ---
Author Organization [facility] Address [address] [employer] [address] Phone Care Team Providers Care Manager Activities Name Role Phone Ozzie Rodriguez MD Primary Care Provider Mateus Tran MD Unavailable Bruce Garcia MD Unavailable Jimenez Shaw MD Unavailable Иван Singh MD Unavailable Myriam Abdullahi HAND SIZER Unavailable Dakota Marroquin MD Unavailable Daniel Rubin MD Unavailable Loni RODRIGUES MD, Carlos M. Unavailable Jay Meadows MD Unavailable Larry Block DPM Unavailable Yaw Menchaca MD Unavailable + Ata Flores MD Unavailable Rae Pérez OD Unavailable Logan Mitchell MD Unavailable Frank Rodriguez HAND SIZER Unavailable [phone] Rebecca Watkins MD Unavailable Ceci Chanel [facility] Unavailable [phone] Madelyn Church MD Unavailable [phone] Josi Zamora OD Unavailable [phone] Madelyn Church MD Unavailable [phone] Encounter Details Date Type Department Care Team (Late st Contact Info) Description 11/09/2022 Orders Only [facility] [address] [place] [id number] Ozzie Rodriguez MD [address] [address] Social History Tobacco Use Types Packs/Day Years Used Date Smoking Tobacco: Never Smokeless Tobacco: Never Alcohol Use Standard Drinks/Week Comments Yes 1 (1 standard drink = 0.6 oz pure alcohol) Social drinker maybe 1 or 2 per month AUDIT-C Answer Date Recorded Q1: How often do you have a drink containing alc ohol? Monthly or less 07/16/2022 Average Number of Drinks Not on file 022 Frequency of Binge Drinking Not on file 06/28 PHQ-2 Answer Date Recorded PHQ-2 Total Score (If total score is 3 or more points, staff should administer the PHQ-9) 6 10/07/2022 Comments No Sex and Gender Information Value Date Recorded Sex Assigned at Not on file Legal Sex Female 8:34 AM PROFESSIONAL SERVICES SPECIALIST Gender Identity Female 12/01/2021 9:28 PM PROFESSIONAL SERVICES SPECIALIST Sexual Orientation Straight 10/31/2020 6: 30 PM PROFESSIONAL SERVICES SPECIALIST Occupation Industry Job Start Date Job End Date retired Not on file Not on file Not on file documented as of this encounter Plan of Treatment Not on file documented as of this encounter Procedures Procedure Name Priority Date/Time Associated Diagnosis Comments SCAN - LABS 11/09/2022 documented in this encounter Results * SCAN - LABS (11/09/2022) Ozzie Rodriguez MD Final Result documented in this encounter Visit Diagnoses Not on filedocumented in this encounter Additional Health Concerns Infection Onset Date Last Indicated Resolved Time C. difficile suspected 12/01/2024 12/01/202412/02 3:05 AM PROFESSIONAL SERVICES SPECIALIST documented as of this encounter Care Teams Manager Activities Relationship Specialty Start Date End Date Ozzie Rodriguez MD [address] [place] [address] PCP - General Infectious Diseases 05/02/18 Mateus Tran MD [address] [place] [address] Consulting Physician Neurology 10/26/18 Bruce Garcia MD [address] [place] [address] Consulting Physician Gastroenterology 12/05/18 Jimenez Shaw MD [address] [place] [address] Consulting Physician Ophthalmology 12/06/18 Иван Singh MD [address] [place] [address] Consulting Physician Urology 03/07/19 Myriam Abdullahi NP [address] [place] [address] Nurse Practitioner Dermatology 04/08/19 Dakota Marroquin MD [address] [place] [address] Consulting Physician Gastroenterology 05/21/19 Daniel Rubin MD [address] [facility] [address] [facility] [address] [place] [address] Consulting Physician Cardiology 09/11/19 [place] [address] [facility] [address] [place] [address] Consulting Physician Neurology 06/20/20 Jay Meadows MD [address] [facility] [address] [place] [address] Consulting Physician Orthopedic Surgery 07/26/20 Larry Block DPM [address] [facility] [address] [place] [address] Consulting Physician Orthopedic Surgery 12/02/20 [place] [address] [facility] [address] [facility] [address] [place] [address] Consulting Physician Orthopedic Surgery 12/19/20 Ata Flores MD [address] [place] [address] Referring Physician Endocrinology Diabetes & Metabolism 08/25/21 Rae Pérez OD [address] [place] [address] Consulting Physician Optometry 08/18/21 Logan Mitchell MD [employer] [address] [place] [address] Consulting Physician Allergy and Immunology 05/20/22 Frank Rodriguez NP [address] [place] [address] Nurse Practitioner Psychiatry 09/17/22 Rebecca Watkins MD [phone] [place] [address] Consulting Physician Colon and Rectal Surgery 01/20/23 Ceci Chanel, [facility] [address] [facility] [facility] [address] [place] [address] Pharmacist Pharmacy 08/07/24 08/07/24 Madelyn Church MD [address] [place] [id number] [place] [address] Referring Physician Nephrology 05/02/24 Josi Zamora OD [address] [place] [address] Consulting Physician Optometry 10/16/24 Madelyn Church MD [address] [address] Referring Physician Nephrology 12/26/24 04/15/25 documented as of this encounter
--- OUTSIDE RECORDS SUMMARY | 2025-04-23 13:10 | XMS_ITS | Patient Health Record ---
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 - Encourage the patient to engage in stress-reducin g activities such as exercise, meditation, or hobbies. - Recommend limiting exposure to news and social media to reduce anxiety triggers. - Consider referral to a therapist for further evaluation and support if anxiety persists or worsens. Exploration of Relocation to [place] - Assessment: Patient has initiated contact with [employer] regarding visa and residency requirements. - Plan: - Encourage the patient to continue researching the requirements for residency and relocation. - Suggest the patient consult with an deck builder for guidance on the process. - Recommend the patient explore options for maintaining their current property and managing their pets during the relocation process. Financial Concerns Related to Social Security and [facility] - Assessment: Patient expresses concern about potential changes to Social Security benefits. 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 - Encourage the patient to stay informed about any changes to Social Security policies and advocate for their interests with their elected community relations representative s. 11/06/2024 Other EMDR Therapy Interest - Assessment: Patient expresses interest in EMDR therapy. - Plan: - Discuss the potential benefits and limitations of EMDR therapy with the patient. - If appropriate, provide a referral to a qualified EMDR therapist. Long-term Health Concerns for Sharlene - Assessment: Patient is concerned about Sharlene's long-term health and lack of a comprehensive plan. - Plan: - Encourage the patient to discuss her concerns with Sharlene. - Acknowledge the patient's proactive communication with healthcare providers. Relationship and Living Situation - Assessment: Patient is considering potential changes in living situation with Trevor and Sharlene. - Plan: - Encourage the patient to maintain open communication with Trevro and Sharlene about their living situation and future plans. - Offer support in navigating the decision-makin g process and addressing any concerns that may arise. Each section addresses a specific concern or issue raised by the patient, providing an assessment and corresponding plan for addressing these matters. 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 She has been avoiding taking lorazepam due to concerns about its potential impact on her diarrhea. Current medication regimen includes vilazodone 20 mg, bupropion, and valproate. Plan: - Continue current psychiatric medication regimen: - Vilazodone 20 mg (dose frequency and route not specified) - Bupropion (dose, frequency, and route not specified) - Valproate (dose, frequency, and route not specified) - Reassure patient that lorazepam is not likely to worsen diarrhea and can be taken as prescribed for anxiety symptoms - Refill lorazepam prescription through [facility] mail order pharmacy - Schedule follow-up in 4 months Social Isolation Assessment: Patient reports social withdrawal, particularly related to a previous conflict with a group member described as narcissistic. She has cut off contact with this individual and has not been engaging in social activities with others. Plan: - Encourage gradual re-engagement in social activities as patient's physical health improves - Discuss coping strategies for managing difficult interpersonal relationships the note is transcribed using speech recognition software. It is a reflection of a visit with the patient. It might have some inaccuracy, including medication names and transcribing errors, though efforts have been made to correct them. 02/12/2025 Other Termination of Therapy - Assessment: Raven has demonstrated substantial improvement in her ability to manage interpersonal relationships and personal growth. She has successfully worked through issues related to giving unsolicited advice and has learned to allow others to make their own decisions without her intervention. Raven has also shown progress in setting boundaries and managing her involvement in social groups. The patient appears to have reached a stable point in her therapeutic journey, where she feels comfortable concluding regular sessions. - Plan: - Schedule final therapy sessions for March 05 and April 06. - Discuss strategies for maintaining progress after therapy concludes. - Provide information on how to reconnect with therapy services if needed in the future. - Encourage continued application of learned coping strategies and interpersonal skills. This section addresses Raven's progress in therapy and outlines the plan for termination of regular sessions. 04/06/2025 Other Anxiety - Assessment: Patient presents with anxiety primarily focused on her 's health and medical care. She expresses concern about the physicians' handling of her 's case and their perceived lack of collaboration. The anxiety has manifested in sleep disturbances, with the patient reporting no more than 5 hours of sleep per night. The patient's anxiety appears to be situational. - Plan: - Continue regular counseling sessions to address anxiety and provide support during this stressful period. - Explore and implement stress-reduction techniques to manage anxiety symptoms. - Monitor sleep patterns and discuss potential interventions if sleep disturbances persist. - Provide psychoeducation on caregiver stress and self-care strategies. - Reassess anxiety levels and sleep quality in follow-up sessions. Life Transitions and Decision-Making - Assessment: Patient is experiencing multiple potential life changes, including upcoming travels and a possible move to [place]. - Plan: - Explore patient's feelings about postponed life plans and potential move. - Assist in developing coping strategies for managing uncertainty. - Discuss prioritization of life decisions in the context of her 's medical situation. - Encourage open communication with family members about future plans and concerns. - Revisit discussion of life transitions in future sessions as medical procedures progress. Raven, a female patient, has resumed counseling due to anxiety related to her 's health issues and upcoming heart surgery. Plan Of Treatment Next Appt Details Provider Name:Frank dong, 05/08/2025 10:00:00 AM, [address], [facility] [address], [place], [address], Provider Name:Ladan England, 05/29/2025 11:00:00 AM, [address], [facility] [address], [place], [address], Provider Name:Ladan England, 06/26/2025 11:00:00 AM, [address], [facility] [address], [place], [address], Provider Name:Ladan England, 07/17/2025 11:00:00 AM, [address], [facility] [address], [place], [address], Provider Name:Ladan England, 08/07/2025 11:00:00 AM, [address], [facility] [address], [place], [address], Insurance Providers Payer Name Payer Address Payer Phone Subscriber Number Group Number Insured Name Patient Relationship to Insured Coverage Start Date Coverage End Date [facility] Medicare Replacement/ Advantage - Ppo [address] [address] [place] [address] [id number] SANGEETHA BARBA Self - patient is the insured Medical (General) History Medical History History ICD Code Problems: Mild recurrent major depressio n Primary insomnia Recurrent major depression in full remis jeremy , Imported from [place]: On January 01, 2025, the patient had an encounter for orders only with Dr. Dakota Marroquin at the [facility]. The primary issues addressed during this visit were unspecified type of diarrhea and a history of foreign travel. No hospitalizations or additional testing were indicated in this record. Surgical History Surgery Date(Month/Year) Appendectomy (07422) Tonsilectomy/adenoids 09/27/1959 Endometrial ablation (61731) 09/27/1974 Breast surgery (72421) 09/27/1980 Removal of gallbladder (91450) 3 Any surgical history 09/27/1990 Hysterectomy (52571) 09/27/1990 Cataract surgery (96428) 09/27/2014 Other 09/27/2018 Colectomy (60013) 12/26/2021 Colectomy (48600) 05/28/2021
--- OUTSIDE RECORDS SUMMARY | 2025-04-23 13:10 | XMS_ITS | Patient Health Record ---
Author Organization [facility] Address [address] [place] [address] Care Team Providers Care Barkeeper Name Role Phone Ata Flores MD Primary Care Provider Unavaila ble Reason For Referral No Information Plan Of Treatment No Information Insurance Providers Payer Name Payer Address Payer Phone Subscriber Number Group Number Insured Name Patient Relationship to Insured Coverage Start Date Coverage End Date [employer] [id number] [address] [place] [address] [id number] Mily Santoyo Spouse - patient is the spouse of the insured
== END 2025-04-23 13:05 | disposition home or self-care (01) ==
PROVIDERS: PCP Internal Medicine Infectious Disease; Visit Provider Internal Medicine Infectious Disease
DX: Z78.0 Asymptomatic menopausal state (principal)
CPT/HCPCS: 77080